=== PATIENT | female | born 1955 | race Caucasian/White ===

== ENCOUNTER 2017-12-21 10:19 | Observation (INO) | payer OTHER ==
[~2017-12-21] VITALS: Ht 149.9 cm; Wt 68.5 kg
[~2017-12-21 10:19] MED LIST: ADVAIR 250-501 EACH INH; ATROVENT HFA12.9 GM INH; CARISOPRODOL350 MG PO; COUMADIN4 MG PO; FLOVENT DISKUS50 MCG INH; FOLIC ACID1 MG PO; HYDROMORPHONE HC4 MG PO; LISINOPRIL5 MG PO; LORCET 101 TAB; MORPHINE SULFAT15 MG PO; MYCOPHENOLATE250 MG PO; NORCO 10MG-325MG1 EA PO; PANTOPRAZOLE SO40 MG PO; PREDNISONE10 MG PO; PREMARIN0.45 MG PO; PROCHLORPERAZINE5 MG PO; PROMETHAZINE HC25 M1 PO; VENLAFAXINE HC150 MG PO; VITAMIN D50000 UNIT PO
[2017-12-21] MEDS ORDERED: TEMAZEPAM15 MG PO (11:18)
[2017-12-21] MEDS ORDERED: CARISOPRODOL350 MG PO (11:18)
[2017-12-21] MEDS ORDERED: POTASSIUM CHLO20 ME1 PO (11:18)
[2017-12-21] MEDS ORDERED: Eliquis PO (11:18)
[2017-12-21] MEDS ORDERED: MEDROXYPROGESTE10 MG PO (11:18)
[2017-12-21] MEDS ORDERED: ASPIR 8181 MG PO (11:18)
[2017-12-21] MEDS ORDERED: LABETALOL HCL200 MG PO (11:18)
[2017-12-21] MEDS ORDERED: DOCUSATE SODIU100 MG PO (11:18)
[2017-12-21] MEDS ORDERED: ATORVASTATIN CA20 MG PO (11:18)
[2017-12-21] MEDS ORDERED: FOLIC ACID1 MG PO (11:18)
[2017-12-21] MEDS ORDERED: FUROSEMIDE40 MG PO (11:18)
[2017-12-21] MEDS ORDERED: ABILIFY5 MG PO (11:18)
[2017-12-21] MEDS ORDERED: TRAZODONE HCL50 MG PO (11:18)
[2017-12-21] MEDS ORDERED: CORTISPORIN OIN15 GM TOP (11:24)
[2017-12-21] MEDS ORDERED: CLOTRIMAZOLE15 GM PO (11:24)
[2017-12-21] MEDS ORDERED: NYSTATIN100000 UNI PO (11:24)
[2017-12-21] MEDS ORDERED: ZOLPIDEM TARTRATE 5 MG TAB PO PRN ×2 (12:00→13:30)
[2017-12-21] MEDS ORDERED: ONDANSETRON HCL INJ 2 MG/ML VIAL IV PRN (12:00)
[2017-12-21] MEDS ORDERED: DIPHENHYDRAMINE HCL INJ 50 MG/ML VIAL IV PRN (12:00)
[2017-12-21] MEDS ORDERED: PROMETHAZINE 12.5MG/ NACL 0.9% 12.5 MG/50 ML BAG IV PRN (12:00)
[2017-12-21] MEDS ORDERED: DILTIAZEM HCL 5 MG/ML 5 ML VIAL IV ONE ×2 (12:15→12:30)
[2017-12-21] MEDS ORDERED: DILTIAZEM HCL VIAL 5 ML ONE (12:15)
[2017-12-21] MEDS ORDERED: SODIUM CHLORIDE 0.9% 1000ML 1,000 ML ONE (12:15)
[2017-12-21] MEDS ORDERED: SODIUM CHLORIDE 0.9% 1000ML 1,000 ML IV ONE ×2 (12:15→12:30)
[2017-12-21] MEDS ORDERED: FAMOTIDINE 20 MG/2 ML VIAL IV ONE (12:15)
[2017-12-21 12:21] LABS: BASOPHILS % 0.2 % (0.0-1.0); EOSINOPHILS # (AUTO) 0.1 (0.0-0.4); EOSINOPHILS % 1.3 % (0.0-6.0); HEMATOCRIT 28.2 % (34.2-44.1); HEMOGLOBIN 8.6 g/dL (12.0-16.0); LYMPHOCYTES # (AUTO) 0.6 (1.0-3.2); LYMPHOCYTES % 7.6 % (18.0-39.1); MEAN CORPUSCULAR HEMOGLOBIN 26.5 pg (28-32); MEAN CORPUSCULAR HGB CONC 30.5 g/dL (31-35); MEAN CORPUSCULAR VOLUME 86.8 fL (81-99); MONOCYTES # (AUTO) 0.2 (0.2-0.8); MONOCYTES % 2.7 % (4.4-11.3); NEUTROPHILS # (AUTO) 7.2 (2.1-6.9); PLATELET COUNT 327 x10e3/uL (140-360); RED BLOOD COUNT 3.25 x10e6/uL (3.6-5.1); RED CELL DISTRIBUTION WIDTH 22.8 % (11.7-14.4)
[2017-12-21] MEDS ORDERED: ZOLPIDEM TARTRATE 10 MG TAB PO PRN (12:30)
[2017-12-21 12:41] LABS: ALBUMIN 3.2 g/dL (3.5-5.0); ALBUMIN/GLOBULIN RATIO 0.8 (0.8-2.0); CALCIUM 10.2 mg/dL (8.4-10.2); CREATININE, SERUM 1.46 mg/dL (0.57-1.11)
[2017-12-21] MEDS: HYDROMORPHONE 2MG/ML INJ IV PRN ×2 (12:55→18:25)
[2017-12-21 12:57] LABS: CREATINE KINASE MB 1.1 ng/mL (0-5.0)
[2017-12-21] MEDS ORDERED: MAGNESIUM SULFATE 2GM/50ML 50 ML IV ONE (13:15)
[2017-12-21] MEDS ORDERED: ACETAMINOPHEN 325 MG TAB PO PRN (13:30)
[2017-12-21] MEDS ORDERED: ENALAPRILAT IV INJ 1.25 MG/ML VIAL IV PRN (13:30)
[2017-12-21] MEDS: LACTATED RINGER'S 1,000 ML IV SCH ×2 (13:36→23:10)
--- NOTE | 2017-12-21 14:54 | Diagnostic Imaging Report ---
PROCEDURE: A single AP view of the chest. COMPARISON: Patients [facility], , CHEST SINGLE (PORTABLE), 12/08/2012, 5:04. INDICATIONS: CHEST PAIN, CHF FINDINGS: Lines/tubes: None. Lungs: The lungs are well inflated and grossly clear. There is no evidence of pneumonia or pulmonary edema. Pleura: There is no pleural effusion or pneumothorax. Heart and mediastinum: Cardiac silhouette is unremarkable. Bones: No acute bony abnormality. IMPRESSION: 1. No acute cardiopulmonary disease. Akash Santana M.D. Dictated by: Akash Santana M.D. on 12/21/2017 at 14:17 Electronically approved by: Akash Santana M.D. on 12/21/2017 at 14:17
[2017-12-21 15:38] VITALS: BP 110/66
[2017-12-21 15:56] VITALS: BP 110/66
[2017-12-21] MEDS: FAMOTIDINE 20 MG/2 ML VIAL IV SCH (16:46)
[2017-12-21 20:00] VITALS: BP 130/68
[2017-12-21] MEDS ORDERED: BENZOCAINE 20% SPR 60 ML CAN MT PRN (21:00)
[2017-12-21] MEDS: VENLAFAXINE HCL 75 MG CAPCR PO SCH (22:00)
[2017-12-21] MEDS: PREDNISONE 10 MG TAB PO SCH (22:00)
[2017-12-21] MEDS: MORPHINE SULFATE 15MG TAB CR PO SCH (22:06)
[2017-12-21] MEDS: APIXABAN 5 MG TABLET PO SCH (22:06)
[2017-12-21] MEDS: CARISOPRODOL 350 MG TAB PO SCH (22:07)
[2017-12-21] MEDS: CHLORASEPTIC SPRAY 177 ML BTL MM SCH (22:15)
[2017-12-21] MEDS: METOPROLOL TARTRATE 25 MG TAB PO SCH (23:09)
[2017-12-22] VITALS (7 sets, daily range): BP systolic 115–164; BP diastolic 66–77
--- NOTE | 2017-12-22 00:33 | Consultation ---
DATE OF CONSULTATION: December 21, 2017 CARDIOLOGY CONSULTATION NOTE REASON FOR CONSULTATION: Atrial flutter with RVR. CHIEF COMPLAINT: Mouth sores and pain while eating. HPI: Patient is a 61-year-old female who is well known to our practice. She has history of severe rheumatoid arthritis and has been on chronic immunosuppressants and high doses of narcotics for pain control including methadone. For past several months, she has developed significant what appears to be fungal infection in her mouth that has been gradually worsening to the point where it is very difficult for her to eat. She remains on high doses of steroids which makes healing this infection difficult despite her seeing multiple physicians and undergoing multiple courses of antifungals. Although she initially presented to the [facility] for evaluation of ulcerations in her mouth and lip, while she was in the ER, she briefly went into atrial flutter with RVR, converted back to sinus rhythm on her own without any intervention. She has no prior history of known atrial fib or atrial flutter, and this is why we are consulted. REVIEW OF SYSTEMS: Positive for diffuse joint pain, severe pain in her mouth, dysphagia, odynophagia, occasional abdominal pain, headaches, weight gain, and lower extremity swelling. Otherwise, ten-point review of system is negative other than what is mentioned. PAST MEDICAL HISTORY: 1. Rheumatoid arthritis. 2. Diastolic heart failure. 3. Fungal infection of the mouth. FAMILY HISTORY: Hypertension, heart problems, and breast cancer in her mom; and history of cancer in her dad. SOCIAL HISTORY: Patient denies any smoking, drinking, or illegal drug use. PHYSICAL EXAMINATION: VITAL SIGNS: Temperature 97.9, heart rate 86, respiratory rate 20, blood pressure 130/68, satting 95% on room air. GENERAL: Thin elderly white female. HEENT: Eyes: Conjunctivae clear. Ears, nose, mouth, and throat: Patient has redness and white plaquing diffusely under her tongue as well as under her lower lip consistent with thrush. She also has thrush in the mucosa in her pharynx. There is no obvious bleeding or pallor noted. NECK: No jugular venous distention noted. MUSCULOSKELETAL: Mild diffuse muscle weakness with normal tone. No atrophy or abnormal movements. EXTREMITIES: No clubbing or cyanosis, however, there are significant joint deformities consistent with rheumatoid arthritis. SKIN: No venostasis changes or ulcers. CARDIOVASCULAR: PMI nondisplaced, regular. S1 and S2. No murmur, rubs, or gallops. Normal carotid pulses. Palpable femoral pulses. Palpable pedal pulses. Trace edema at the ankles. Some varicosities in bilateral lower extremities noted. RESPIRATORY: No respiratory distress. Lungs are clear to auscultation bilaterally. ABDOMEN: Soft, nontender. No masses or hepatosplenomegaly. NEURO AND PSYCH: Patient is alert and oriented to person, place, and time. Normal affect. MEDICATIONS: 1. Apixaban 5 mg b.i.d. 2. Enalaprilat 0.625 q.6h. p.r.n. for blood pressure greater than 160. LABS: Lab data reviewed, significant for hemoglobin of 8.6 and magnesium of 1.0. IMAGING: Reviewed. Chest x-ray without any significant cardiopulmonary abnormality. ECG, ECG tracing from the ER reviewed. It is in fact atrial flutter with RVR, not atrial fibrillation, which converted to normal sinus rhythm with IV diltiazem. Echo, prior echo in the office showed normal EF without significant valvular abnormalities. ASSESSMENT: 1. Atrial flutter. 2. Chronic diastolic heart failure. PLAN: She is currently back in sinus rhythm. Given her hemoglobin of 8.6 and propensity to bleed very easily, will monitor closely to see how she tolerates apixaban. Her [id number] score is 3. Would also recommend repleting magnesium to prevent propensity for further arrhythmias. Infectious disease consulted for evaluation of her mouth lesions and possible fungal infection. Will continue to follow closely. Thank you for this consult. Job#: [id number]
[2017-12-22] MEDS: HYDROMORPHONE 2MG/ML INJ IV PRN ×3 (01:11→12:26)
[2017-12-22] MEDS: HYDROCODONE/APAP 10MG-325MG TAB PO PRN ×2 (04:38→13:15)
[2017-12-22] MEDS: CHLORASEPTIC SPRAY 177 ML BTL MM SCH ×3 (05:01→20:22)
[2017-12-22] MEDS: METOPROLOL TARTRATE 25 MG TAB PO SCH ×3 (05:02→21:19)
[2017-12-22 06:07] LABS: CHOL/HDL RATIO 2.4 (3.0-3.6)
[2017-12-22] MEDS ORDERED: AMIODARONE HCL200 MG PO (06:20)
[2017-12-22] MEDS ORDERED: LOPRESSOR25 MG PO (06:20)
[2017-12-22 06:25] LABS: HEMATOCRIT 24.4 % (34.2-44.1)
[2017-12-22 06:30] LABS: HEMOGLOBIN 7.5 g/dL (12.0-16.0)
[2017-12-22] MEDS ORDERED: PANTOPRAZOLE SOD 40 MG TABEC PO SCH (07:30)
[2017-12-22] MEDS: LACTATED RINGER'S 1,000 ML IV SCH (07:39)
[2017-12-22 07:45] LABS: CALCIUM 9.6 mg/dL (8.4-10.2); CREATININE, SERUM 1.03 mg/dL (0.57-1.11)
--- NOTE | 2017-12-22 08:11 | Discharge Summary ---
PRINCIPAL DIAGNOSES 1. Atrial fibrillation with rapid ventricular response. 2. Congestive heart failure, type unknown. 3. Oral ulcers. 4. Acute kidney injury. 5. Hypomagnesemia. 6. Obesity. Body mass index 30.5. 7. Prediabetes with glycosylated hemoglobin 6.1. 8. Normocytic anemia. SECONDARY DIAGNOSES 1. Lupus. 2. Congestive heart failure. 3. Chronic pain syndrome. CHIEF COMPLAINT: Oral lesions. HISTORY OF PRESENT ILLNESS: This is a 61-year-old woman with oral lesions, found to have atrial fibrillation with rapid ventricular response. Please refer to the H and P for further details. HOSPITAL COURSE: The patient was treated for atrial fib with rapid ventricular response with AV-blocking agent and started on amiodarone. The patient is on a beta eliu. She is also on anticoagulant, which she has been on from home. She had severe hypomagnesemia. This was replaced and is being rechecked now. She also had renal dysfunction. This is also being rechecked. Urinalysis is also being checked. I will follow up these levels later today. The patient will be discharged later today with followup. DISCHARGE MEDICATIONS: Per electronic medical record. FOLLOWUP 1. With primary care doctor in 1 week. 2. [facility] in 1 to 2 weeks. CONDITION ON DISCHARGE: Stable and improving. DISCHARGE LOCATION: Home. HUAN MITCHELL MD Job#: [id number]
[2017-12-22] MEDS: AMIODARONE HCL 200 MG TAB PO SCH (08:46)
[2017-12-22] MEDS: FAMOTIDINE 20 MG/2 ML VIAL IV SCH ×2 (08:46→17:31)
[2017-12-22] MEDS: APIXABAN 5 MG TABLET PO SCH (08:46)
[2017-12-22] MEDS: VENLAFAXINE HCL 75 MG CAPCR PO SCH (08:46)
[2017-12-22] MEDS: FOLIC ACID 1 MG TAB PO SCH (08:46)
[2017-12-22] MEDS: DOCUSATE SODIUM 100 MG CAP PO SCH ×2 (08:46→17:31)
[2017-12-22] MEDS: MORPHINE SULFATE 15MG TAB CR PO SCH ×2 (08:56→20:21)
[2017-12-22] MEDS: PANTOPRAZOLE SOD 40 MG TABEC PO SCH ×3 (08:57→20:21)
[2017-12-22] MEDS: PREDNISONE 10 MG TAB PO SCH (08:57)
[2017-12-22] MEDS: CARISOPRODOL 350 MG TAB PO SCH ×4 (08:59→20:22)
[2017-12-22] MEDS ORDERED: MORPHINE SULFATE 15 MG PO SCH (09:00)
[2017-12-22] MEDS ORDERED: NON-FORMULARY MEDICATION ([Eliquis] 5 MG) PO SCH (09:00)
[2017-12-22] MEDS ORDERED: NON-FORMULARY MEDICATION (Venlafaxine Hcl (Venlafaxine Hcl Er) 150 MG) PO SCH (09:00)
[2017-12-22] MEDS ORDERED: MAALOX/LIDOCAINE/BENADRYL/NYST 30 ML BTL PO PRN ×2 (12:30)
--- NOTE | 2017-12-22 13:30 | Consultation ---
DATE OF CONSULTATION: December 22, 2017 INFECTIOUS DISEASE CONSULTATION ATTENDING PHYSICIAN: Dr. Carlos Josue. REASON FOR CONSULTATION: Oral ulcers. Thank you, Dr. Josue, for asking me to see this patient. HISTORY: The patient is a 61-year-old woman referred for oral ulcers. She was admitted through the emergency department on December 21, 2017, for atrial fibrillation with rapid ventricular rate, which has been evaluated by the cardiology service. The patient has had oral ulcers for about 2 months. The lesions began as blisters which grew bigger and ruptured, to leave painful raw areas. The lesions have recently gotten worse and are making it difficult to eat and do oral care. The patient has been treated with gum paste without improvement. Also she took antifungal medication by swish and swallow without help. Her transportation solutions manager increased the prednisone dose to 60 mg a day to see if the lesions were due to a flareup of lupus, but it did not help. The patient does not recall new medication around the onset of the lesions. She denies fever and chills. Also she denies similar vaginal and anal lesions. PAST MEDICAL HISTORY: Hypertension, hyperlipidemia, atrial fibrillation, congestive heart failure, lupus and chronic pain syndrome. PAST SURGICAL HISTORY: Tonsillectomy and a D\T\C. ALLERGIES: NO KNOWN DRUG ALLERGIES. MEDICATIONS: See MAR. FAMILY HISTORY: Noncontributory. SOCIAL HISTORY: She denies alcohol and tobacco use. REVIEW OF SYSTEMS: As per history of present illness. PHYSICAL EXAMINATION: GENERAL: No acute distress and does not appear toxic. VITALS: T-max 99.1, pulse 80, respiratory rate 21, blood pressure 115/71, weight 151 pounds. HEENT: Normocephalic. There is no icterus or injection of conjunctivae. There is no ear or nasal discharge. Moist oral mucosa with extensive oral lesions on the labia mucosa, buccal mucosa, and on the palate. There is loss of valley on the tongue but no ulcers noted at this time. NECK: Supple. No lymphadenopathy or meningismus. LUNGS: Good air entry bilaterally. HEART: Normal S1 and S2. ABDOMEN: Soft and nontender. EXTREMITIES: There is no edema, clubbing or cyanosis. SKIN: There is no acute erythema. No rash. MEDICAL SUPPLY TECHNICIAN: Awake, alert and oriented to person, place and time. Nonfocal. LABORATORY AND DIAGNOSTICS: WBC 8290, neutrophil 87, lymph 7.6, mono 2.7, eosinophil 1.3, basophil 0.2, BUN 20, creatinine 1.03. IMPRESSION: 1. Oral ulcers may be secondary to infectious or noninfectious causes. 2. Immune suppression due to high-dose prednisone. 3. Lupus. 4. Atrial fibrillation, now with rate. 5. Chronic pain syndrome. PLAN: 1. Recommend oral maxillofacial consult for biopsy for tissue and microbiological diagnoses. 2. Check HIV screen and RPR if the patient agrees. Job#: [id number] EV
[2017-12-22] MEDS ORDERED: SODIUM CHLORIDE 0.9% 250ML 250 ML IV ONE (15:15)
[2017-12-22] MEDS ORDERED: FUROSEMIDE INJ 10 MG/ML 2 ML VIAL IV PRN (15:15)
[2017-12-22] MEDS ORDERED: CITRATE OF MAGNESIA 300ML BOTTLE PO ONE (15:15)
--- NOTE | 2017-12-22 15:23 | History and Physical ---
PRIMARY CARE PHYSICIAN: Dr. Vega CHIEF COMPLAINT: Oral ulcers. HISTORY OF PRESENT ILLNESS: A 61-year-old woman, who has been having oral ulcers for months, now went to ENT doctor, given gum paste and other medication, also received some mouthwash. Patient has taken doxycycline in the past with good results. Now, went to her primary care doctor, sent to the hospital for further evaluation and management. She was found to be in rapid ventricular response. She does have a history of atrial fibrillation. She was admitted for further evaluation and management. PAST MEDICAL HISTORY: Atrial fibrillation with rapid ventricular response, Coumadin toxicity, acute kidney injury, hyponatremia, alcohol abuse, lupus, Sjogren, rheumatoid arthritis, chronic pain syndrome, DVT, aspiration pneumonia, COPD, alcohol withdrawal, hyponatremia, acute kidney injury. PAST SURGICAL HISTORY: Pneumothorax in 1989 treated with chest tube, pericarditis. ALLERGIES: PER ELECTRONIC MEDICAL RECORD. FAMILY/SOCIAL HISTORY: Patient is . She has 6 children. Occasional alcohol. Quit cigarettes. MEDICATIONS: Per electronic medical record. REVIEW OF SYSTEMS: Denies any dizziness, chest pain, shortness of breath, fever, chills, sweats, nausea, vomiting, diarrhea. PHYSICAL EXAMINATION: VITAL SIGNS: Reviewed. GENERAL APPEARANCE: Tired-appearing woman resting in bed. HEENT: Anicteric. She has oral ulcers throughout the mouth and the lower lip, in the mouth and the tongue, and the buccal mucosa. CARDIOVASCULAR: Normal S1, S2, without murmurs. ABDOMEN: Soft, nontender, nondistended. EXTREMITIES: No edema, calf tenderness. NEUROLOGIC: Alert and oriented x3. She moves all extremities. SKIN: Dry. PSYCHIATRIC: Flat affect. LABS: Reviewed. MEDICATIONS: Reviewed. ASSESSMENT: This is a 61-year-old woman. 1. Atrial fibrillation with rapid ventricular response. 2. Congestive heart failure, type 1. 3. Lupus. 4. Chronic pain syndrome. 5. Oral ulcers. 6. Normocytic anemia. 7. Acute kidney injury. 8. Hypomagnesemia. 9. Obesity. PLAN 1. Rate control with AV blocking agents. 2. Oral wash including steroid oral wash. 3. Obtain urinalysis to rule out infection as the cause of the rapid ventricular response. 4. Follow up hemoglobin count. Hemoglobin was 8.6. 5. Replace magnesium and recheck tonight. 6. Rehydrate and reassess renal function. 7. Obtain hemoglobin A1c and lipid panel. 8. Restart pain medications per patient's request. 9. Continue apixaban b.i.d. and AV blocking agents. Job#: [id number] CQ
[2017-12-22] MEDS: SUCRALFATE 1 GM/10 ML SUSP NG SCH ×2 (16:18→20:19)
--- NOTE | 2017-12-22 16:34 | Consultation ---
DATE OF CONSULTATION: GASTROENTEROLOGY CONSULTATION HISTORY OF PRESENT ILLNESS: Ms. Spann is an old patient of mine who presented to the hospital with difficulty eating because of a fungal infection in her mouth that has progressed to the point which made her extremely uncomfortable to eat, and I was asked to see her for evaluation. She is known to have history of lupus for a long time. She is on chronic immune suppression treatment, and she also has congestive heart failure. GI-ramos, besides the trouble swallowing, she does have regularly heartburn, acid reflux that is controlled well with medication. No abdominal pain. She is constipated. She has 1 bowel movement per week, and 2 weeks ago for the first time she saw dark-colored blood. She had colonoscopy over 10 years ago. REVIEW OF SYSTEMS: Consistent with trouble swallowing and constipation and odynophagia. SOCIALLY: She is an ex-smoker. She does not drink. She quit smoking 6 years ago. ALLERGIES: NOT KNOWN TO HAVE ALLERGY TO ANY MEDICATION. CURRENT MEDICATIONS: She is on Protonix, Lopressor, Soma, MS Contin, prednisone, folic acid, amiodarone, Zofran, Vasotec, Restoril, Desyrel, Lipitor, Pepcid, Chloraseptic, Eliquis and Effexor. PHYSICAL EXAMINATION GENERAL: She is awake, alert, oriented. VITAL SIGNS: Temperature 97, pulse 91, respiratory rate 18, blood pressure 137/66. HEENT: Pale sclerae. NECK: Supple. No node. LUNGS: Expiratory wheezing bilaterally. HEART: Regular-regular, occasional irregular beat. ABDOMEN: Obese, soft, not tender abdomen. No acute signs. No organomegaly or masses. EXTREMITIES: No edema. CENTRAL NERVOUS SYSTEM: Motor function grossly intact. LAB: Hemoglobin down to 7 from 8, hematocrit down to 24 from 28, platelet 327. BUN 20, creatinine 1.03, sodium 139, potassium is 5. Liver function normal. Magnesium was 1 but according to the nursing staff was replaced. IMPRESSION: Constipation, most likely induced by her narcotic. Will give her magnesium citrate now and will try her on MiraLAX. If MiraLAX does not help, we will put her on Movantik. Her anemia, will order iron saturation, ferritin, B12, folate, RBCs and also will transfuse her with 2 units of RBCs. We are going to keep her on Protonix and add Carafate. Her trouble swallowing, she is on swish and swallow combination of viscous lidocaine, Maalox, nystatin and Benadryl, and it according to the patient is helping her. I advised her to use a straw and to take at least 4 cans of Ensure a day. If she is able, that is fine; if not, then will put a Dobbhoff tube. We cannot do the endoscopy now unless we stop her blood thinner. Will follow with you. Job#: [id number] EV
[2017-12-22 16:38] LABS: MAGNESIUM 1.8 MG/DL (1.3-2.1)
[2017-12-22 16:59] LABS: FERRITIN 97.37 ng/mL (4.63-204.00)
[2017-12-22] MEDS: POLYETHYLENE GLYCOL 3350 17 GM PACK PO SCH (17:31)
--- NOTE | 2017-12-22 19:45 | Progress Note ---
DATE: December 22, 2017 CARDIOLOGY PROGRESS NOTE SUBJECTIVE: No major events overnight. Pain in her mouth is a little improved the Xylocaine spray. However, she states that it cage when applied. She has also been seen by gastroenterology, as well as infectious disease. They are working on identifying the cause of her oral mucosal lesions. OBJECTIVE VITAL SIGNS: 96.8, pulse 85, respiratory rate 20, blood pressure 136/67, satting 96% on room air. GENERAL: Obese elderly white female. CARDIOVASCULAR: PMI nondisplaced. Regular S1 and S2. No murmurs, rubs or gallops. Normal carotid pulses. Palpable femoral pulses. Palpable pedal pulses. Trace edema at the ankles. Varicosities in bilateral lower extremities. RESPIRATORY: No respiratory distress. Lungs are clear to auscultation bilaterally. ABDOMEN: Soft and nontender. No masses or hepatosplenomegaly. NEURO/PSYCH: Alert and oriented to person, place and time. Normal affect. CARDIOVASCULAR MEDICATIONS 1. Metoprolol tartrate 25 mg q.8 h. p.o. 2. Amiodarone 200 mg daily. LABORATORY DATA: Reviewed. Hemoglobin 7.5, pending blood transfusion. IMAGING: No new imaging data to review. Telemetry monitoring reports normal sinus rhythm. No arrhythmias overnight. ASSESSMENT AND PLAN 1. Paroxysmal atrial flutter. 2. Carotid diastolic heart failure. PLAN: The patient remains in sinus rhythm. No evidence of any arrhythmias. Getting blood transfusion today given transfusion dependent anemia. Pending EGD and biopsy. Plan from GI, will hold off on apixaban at this time. Continue metoprolol and amiodarone to maintain sinus rhythm. Will continue to follow. Thank you for this consult. Job#: [id number] JAZZY
[2017-12-22] MEDS ORDERED: TRAZODONE HCL 50 MG TAB PO SCH (21:00)
[2017-12-22] MEDS ORDERED: ATORVASTATIN 20 MG TAB PO SCH (21:00)
[2017-12-22] MEDS ORDERED: TEMAZEPAM 15 MG CAP PO SCH (21:00)
[2017-12-23] VITALS (7 sets, daily range): BP systolic 120–164; BP diastolic 60–92
[2017-12-23] MEDS ORDERED: DIGOXIN INJ 0.25 MG/ML 2 ML AMP IV STA (03:06)
[2017-12-23] MEDS: HYDROCODONE/APAP 10MG-325MG TAB PO PRN (03:52)
[2017-12-23] MEDS: CHLORASEPTIC SPRAY 177 ML BTL MM SCH (04:44)
[2017-12-23] MEDS: METOPROLOL TARTRATE 25 MG TAB PO SCH (04:45)
[2017-12-23 05:24] LABS: HEMATOCRIT 30.6 % (34.2-44.1); HEMOGLOBIN 9.7 g/dL (12.0-16.0)
[2017-12-23] MEDS: SUCRALFATE 1 GM/10 ML SUSP NG SCH ×2 (08:07→12:17)
[2017-12-23] MEDS: HYDROMORPHONE 2MG/ML INJ IV PRN (08:07)
[2017-12-23] MEDS: FOLIC ACID 1 MG TAB PO SCH (09:50)
[2017-12-23] MEDS: POLYETHYLENE GLYCOL 3350 17 GM PACK PO SCH (09:50)
[2017-12-23] MEDS: DOCUSATE SODIUM 100 MG CAP PO SCH (09:50)
[2017-12-23] MEDS: PANTOPRAZOLE SOD 40 MG TABEC PO SCH (09:50)
[2017-12-23] MEDS: MORPHINE SULFATE 15MG TAB CR PO SCH (09:50)
[2017-12-23] MEDS: FAMOTIDINE 20 MG/2 ML VIAL IV SCH (09:50)
[2017-12-23] MEDS: AMIODARONE HCL 200 MG TAB PO SCH (09:50)
[2017-12-23] MEDS: VENLAFAXINE HCL 75 MG CAPCR PO SCH (09:50)
[2017-12-23] MEDS: PREDNISONE 10 MG TAB PO SCH (09:50)
[2017-12-23] MEDS: CARISOPRODOL 350 MG TAB PO SCH (09:51)
--- NOTE | 2017-12-23 14:24 | Progress Note ---
DATE: December 23, 2017 CARDIOLOGY PROGRESS NOTE SUBJECTIVE: Patient went into A-flutter with RVR overnight, was asymptomatic. Was given IV bolus of digoxin and converted back to sinus rhythm on her own. Today, she is resting in bed without any distress. REVIEW OF SYSTEMS: Continues to have pain in her mouth upon swallowing as well as joint pains. Otherwise, the 10-point review of systems is negative. OBJECTIVE VITAL SIGNS: Temperature 96.8, pulse 76, respiratory rate 16, blood pressure 120/60, satting 96% on room air. GENERAL: Well-developed white female. CARDIOVASCULAR: PMI could not be palpated due to body habitus. Normal S1 and S2. Regular rhythm. No murmurs, rubs or gallops are heard. Palpable carotid pulses. Palpable pedal pulses. RESPIRATORY: No respiratory distress. Lungs are clear to auscultation bilaterally. ABDOMEN: Soft and nontender. Nondistended. Normal bowel sounds. NEURO/PSYCH: Alert and oriented to person, place and time. Normal affect. LAB DATA: Reviewed. No new significant findings today. Hemoglobin increased from 7.5 to 9.7 after transfusion yesterday. IMAGING: No new imaging data reviewed today. TELEMETRY: Reviewed. Overnight had long episode of atrial flutter with RVR, converted back to sinus this morning. ASSESSMENT AND PLAN 1. Paroxysmal atrial flutter. 2. Chronic diastolic heart failure. PLAN: The patient is still having paroxysmal atrial flutter. Patient remains asymptomatic without any hypotension when she has these episodes. The plan is for the patient to be discharged today and follow up with GI for outpatient EGD and biopsy for her mucosal plaquing and ulceration. From a cardiology point of view, continue holding her apixaban until GI workup is completed. For rate and rhythm control, will prescribe her amiodarone 200 mg oral b.i.d. and increase her metoprolol tartrate to 50 mg b.i.d. Ideally, we would like to see her in the office prior to her EGD to make sure she remains in sinus rhythm. Thank you for this consult. The patient is okay to be discharged from a cardiovascular standpoint. Job#: [id number]
[2017-12-23] MEDS ORDERED: FERROUS SULFATE 325 MG TAB PO NR (15:30)
--- NOTE | 2017-12-23 16:09 | Discharge Summary ---
PRINCIPAL DIAGNOSES 1. Atrial fibrillation with rapid ventricular response. 2. Congestive heart failure. 3. Oral ulcers/aphthous ulcers. 4. Normocytic anemia. 5. Chronic pain syndrome. 6. Acute kidney injury. 7. Hypomagnesemia. 8. Anemia requiring 2 units of packed red blood cells transfusion. 9. Obesity. SECONDARY DIAGNOSES 1. Obesity. 2. Atrial fibrillation. CHIEF COMPLAINT: Oral lesions. HISTORY OF PRESENT ILLNESS: This is a 61-year-old woman with oral lesions. Please refer to the H and P for further details. HOSPITAL COURSE: The patient was found to have oral ulcers. Also found to have atrial fibrillation with rapid ventricular response treated with medication regimen. Amiodarone was added. Cardiology evaluated the patient also. Dr. Park of GI evaluated the patient for her ulcers. Blood transfusion given. Viscous lidocaine and Chloraseptic and other medications were given for the oral ulcers. She will need to follow up with Dr. Park as outpatient for continued management. DISCHARGE MEDICATIONS: Per electronic medical record. FOLLOWUP 1. With primary care doctor in [address] Park in 1 week. 3. Cardiology in 1 to 2 weeks. CONDITION ON DISCHARGE: Stable and improving. DISCHARGE LOCATION: Home. HUAN MITCHELL MD Job#: [id number]
[2017-12-23] MEDS ORDERED: MIRALAX17 GM PO (17:02)
--- NOTE | 2017-12-23 23:56 | Progress Note ---
DATE: December 23, 2017 Ms. Spann is doing well, stable overall from GI standpoint. She is able to swallow using straw better than before. She managed to get down Ensure in addition to some other soft diet such as and mashed potato. She feels herself somewhat better from yesterday. As far as her constipation, she only took 1 dose of MiraLax and bottle of magnesium citrate, but she still has not had a bowel movement. Most likely her constipation is due to narcotic. The primary care will be discharging her home today and he advised her to stop her blood thinner. PLAN: To continue using her oral solution for comfort. Continue using straw to maintain adequate nutrition using her Ensure. In 4 days after stopping her blood thinner, will plan for upper endoscopy, and I asked her to continue using the MiraLax more frequently. If in the next 2 days, 3 days still no benefit, will change it. Hopefully, we can get her Movantik. Will follow as an outpatient. Job#: [id number]
[2017-12-24] MEDS ORDERED: ASCORBIC ACID 500 MG TAB PO SCH (09:00)
== END 2017-12-23 17:29 | disposition home or self-care (01) ==
LOC: ER 10:19 → ERHOLD 14:07 → IMCU 15:02
PROVIDERS: ADMIT Internal Medicine; ATTEND Internal Medicine
DX: I48.91 Unspecified atrial fibrillation (principal); B00.2 Herpesviral gingivostomatitis and pharyngotonsillitis; E86.0 Dehydration; M32.9 Systemic lupus erythematosus, unspecified; D64.9 Anemia, unspecified; N17.9 Acute kidney failure, unspecified; E83.42 Hypomagnesemia; E66.9 Obesity, unspecified; Z86.718 Personal history of other venous thrombosis and embolism; Z79.01 Long term (current) use of anticoagulants; I50.32 Chronic diastolic (congestive) heart failure; I48.92 Unspecified atrial flutter; G89.4 Chronic pain syndrome; I11.0 Hypertensive heart disease with heart failure; Z79.899 Other long term (current) drug therapy; Z87.891 Personal history of nicotine dependence; K59.03 Drug induced constipation; T40.605A Adverse effect of unspecified narcotics, initial encounter; R73.03 Prediabetes
CPT/HCPCS: 36415 ×3; 36430 ×2; 71045; 80048; 80053; 80061; 82550 ×2; 82553 ×2; 82607; 82728; 82747; 83036; 83540; 83735 ×3; 83880; 84466; 84484 ×2; 85014 ×2; 85018 ×2; 85025; 86850; 86900; 86920; 93005 ×3; 99284; G0378 ×3; J1160; J1170 ×3; J7030; J7050; J7120 ×2; P9016; S0164 ×2

== ENCOUNTER 2018-03-14 11:48 | Emergency (ER) | payer OTHER ==
[~2018-03-14] VITALS: Ht 149.9 cm; Wt 68.0 kg
[~2018-03-14 11:48] MED LIST changes: +ABILIFY5 MG PO; +AMIODARONE HCL200 MG PO; +ASPIR 8181 MG PO; +ATORVASTATIN CA20 MG PO; +CLOTRIMAZOLE15 GM PO; +CORTISPORIN OIN15 GM TOP; +DOCUSATE SODIU100 MG PO; +Eliquis PO; +FUROSEMIDE40 MG PO; +LABETALOL HCL200 MG PO; +LOPRESSOR25 MG PO; +MEDROXYPROGESTE10 MG PO; +MIRALAX17 GM PO; +NYSTATIN100000 UNI PO; +POTASSIUM CHLO20 ME1 PO; +TEMAZEPAM15 MG PO; +TRAZODONE HCL50 MG PO
[2018-03-14] MEDS ORDERED: ALBUTEROL SULF 0.083% NEB SOLN 3 ML NEB NEB STA (11:50)
--- NOTE | 2018-03-14 12:42 | Diagnostic Imaging Report ---
Examination: Single AP view of the chest. COMPARISON: None. INDICATION: Trouble breathing DISCUSSION: Examination is limited by portable technique and patient body habitus. The lungs are well-inflated. No focal airspace consolidation, pleural effusion, or pneumothorax. Hazy increased opacity over the mid and lower lung zones is related to superimposition of overlying soft tissues. There is mild prominence of the pulmonary interstitium. Atherosclerotic calcification of the thoracic aorta. Otherwise normal heart size for technique. No overt pulmonary edema. No acute osseous abnormality. IMPRESSION: Prominence of the pulmonary interstitium may reflect mild edema or viral lower respiratory infection. No consolidative pneumonia. Signed by: Dr. Misbah White M.D. on 03/14/2018 12:38 PM
[2018-03-14 13:22] LABS: BASOPHILS % 0.1 % (0.0-1.0); EOSINOPHILS % 0.1 % (0.0-6.0); HEMATOCRIT 27.1 % (34.2-44.1); HEMOGLOBIN 8.7 g/dL (12.0-16.0); LYMPHOCYTES # (AUTO) 1.2 (1.0-3.2); LYMPHOCYTES % 7.1 % (18.0-39.1); MEAN CORPUSCULAR HEMOGLOBIN 28.5 pg (28-32); MEAN CORPUSCULAR HGB CONC 32.1 g/dL (31-35); MEAN CORPUSCULAR VOLUME 88.9 fL (81-99); MONOCYTES # (AUTO) 0.9 (0.2-0.8); MONOCYTES % 5.5 % (4.4-11.3); NEUTROPHILS # (AUTO) 14.2 (2.1-6.9); NEUTROPHILS % 86.5 % (38.7-80.0); PLATELET COUNT 311 x10e3/uL (140-360); RED BLOOD COUNT 3.05 x10e6/uL (3.6-5.1); RED CELL DISTRIBUTION WIDTH 18.6 % (11.7-14.4)
[2018-03-14 13:32] LABS: INR 1.52; PROTHROMBIN TIME 19.6 seconds (11.9-14.5)
[2018-03-14 13:33] LABS: PARTIAL THROMBOPLASTIN TIME 42.8 seconds (23.8-35.5)
[2018-03-14 13:42] LABS: ALANINE AMINOTRANSFERASE 50 IU/L (0-55); ALBUMIN 3.2 g/dL (3.5-5.0); ALBUMIN/GLOBULIN RATIO 1.1 (0.8-2.0); ALKALINE PHOSPHATASE 61 IU/L (40-150); BLOOD UREA NITROGEN 37 mg/dL (7-26); BUN/CREATININE RATIO 24 (6-25); CALCIUM 8.4 mg/dL (8.4-10.2); CARBON DIOXIDE 25 mmol/L (22-29); CHLORIDE 96 mmol/L (98-107); CREATINE KINASE 52 IU/L (29-168); CREATININE, SERUM 1.57 mg/dL (0.57-1.11); EST GLOMERULAR FILTRATION RATE 33 ML/MIN (60-); GLUCOSE 120 mg/dL (74-118); SODIUM 126 mmol/L (136-145)
[2018-03-14] MEDS ORDERED: CEFTRIAXONE SOD 1 GM VIAL IV ONE (14:30)
--- OUTSIDE RECORDS SUMMARY | 2018-03-22 12:02 | XMS REPORT | Continuity of Care Document ---
Author Author [facility] Interface Address Unknown Phone Unavailable Problems Problem Status Onset Date Classification Date Reported Comments Source Pain in right foot 08/24/2017 11/23/2017 OP[facility] Sullivan M79.671 - PAIN IN RIGHT FOOT Active 08/16/2017 [facility] NEED Active 01/10/2013 [facility] COUMADIN TOXICITY Active 01/10/2013 [facility] 787.03 - VOMITING ALONE Active 06/05/2011 [facility] RTN Active 01/15/2011 [facility] Other osteoporosis with current pathological fracture, right ankle and foot, initial encounter for fracture 11/23/2017 [facility] Other specified soft tissue disorders 11/23/2017 [facility] CHF - Congestive heart failure Resolved Problem 11/23/2017 [facility], [facility] Lupus Resolved Problem 11/23/2017 [facility], OPID [facility] Pericarditis Resolved Problem 11/23/2017 [facility], OPID Sullivan RA - Rheumatoid arthritis Resolved Problem 11/23/2017 [facility], OPID Sullivan Sjogrens syndrome Resolved Problem 11/23/2017 [facility], OPID Sullivan CHF - Congestive heart failure Resolved Problem 01/15/2013 [facility] Lupus Resolved Problem 01/15/2013 [facility] Pericarditis Resolved Problem 01/15/2013 [facility] RA - Rheumatoid arthritis Resolved Problem 01/15/2013 [facility] Sjogrens syndrome Resolved Problem 01/15/2013 [facility] Low back pain Active Problem 02/25/2018 Castro Cartagena Other terminal clerk drug therapy Active Problem 02/25/2018 Castro Cartagena Osteoporosis Active Diagnosis 02/25/2018 Castro Cartagena Other forms of systemic lupus erythematosus Active Diagnosis 02/25/2018 Castro Cartagena Vitamin D deficiency Active Problem 02/25/2018 Castro Cartagena Mouth ulcers Active Problem 02/25/2018 Castro Cartagena TIA Active Problem 02/25/2018 Castro Cartagena Hypothyroidism Active Problem 10/01/2015 Castro Cartagena Asthma, unspecified, with exacerbation Active Problem 10/01/2015 Castro Cartagena Osteoporosis, postmenopausal Active Problem 10/01/2015 Castro Cartagena Long-term use of other medications - High Risk Active Problem 10/01/2015 Castro Cartagena Lupus Active Problem 10/01/2015 Castro Cartagena Bronchitis Active Diagnosis 02/25/2018 Castro Cartagena Pain in joint, ankle and foot Active Problem 10/01/2015 Castro Cartagena Cough Active Problem 10/01/2015 Castro Cartagena Unspecified drug dependence Active Diagnosis 10/14/2013 Castro Cartagena Opioid type dependence, unspecified Active Diagnosis 10/14/2013 Castro Cartagena Unspecified vitamin D deficiency Active Diagnosis 08/30/2014 Castro Mitzi POISONING-ANTICOAGULANTS Active [facility] COUGH, FEVER Active [facility] Medications Medication Details Route Status Patient Instructions Ordering Provider Order Date Source Zithromax Z-Mynor 2 tablets on the first day, then 1 tablet daily for 4 days Orally Active 250 MG Orally as directed Gerlaw 02/17/2018 Castro Cartagena PredniSONE 1 tablet Orally Active 10 MG Orally q am with food Cartagena 01/18/2018 Castro Cartagena Folic Acid 1 tablet Orally Active 1 MG Orally Once a day Cratagena 12/22/2017 Castro Cartagena Tylenol/codeine #4 #30 one tablet orally Active 300-60 mg orally three times a day prn for pain Tellez 12/21/2017 Castro Cartagena Diflucan 1 tablet Orally Active 150 MG Orally Once a day Cartagena 12/20/2017 Castro Cartagena Valtrex 1 tablet Orally Active 500 MG Orally bid Gerlaw 12/20/2017 Castro Cartagena Prolia as directed Subcutaneous Active 60 MG/ML Subcutaneous [id number] Cartagena 12/09/2017 Castro Cartagena Carisoprodol 1 tablet as needed Orally Active 350 MG Orally Four times a day Cartagena 12/06/2017 Castro Cartagena Carisoprodol 1 tablet as needed Orally Active 350 MG Orally Four times a day Cartagena 11/08/2017 Castro Cartagena Carisoprodol 1 tablet as needed Orally Active 350 MG Orally Four times a day Tellez 11/03/2017 Castro Cartagena Temazepam TAKE ONE CAPSULE BY MOUTH EVERY NIGHT AT BEDTIME Orally Active 30 MG Orally Once a day Cartagena 09/08/2017 Castro Cartagena Valacyclovir HCl 1 tablet Orally Active 500 MG Orally every 12 hrs Gerlaw 06/11/2017 Castro Cartagena Reclast 5mg Intravenous Active 5 MG/100ML Intravenous q 1 year Gerlaw 05/03/2017 Castro Cartagena Valacyclovir HCl 1 tablet Orally Active 500 MG Orally every 12 hrs Gerlaw 03/18/2017 Castro Cartagena Prolia as directed Subcutaneous Active 60 MG/ML Subcutaneous [id number] Gerlaw 03/17/2017 Castro Cartagena Prolia as directed Subcutaneous Active 60 MG/ML Subcutaneous [id number] Gerlaw 03/17/2017 Castro Cartagena Folic Acid 1 tablet Orally Active 1 MG Orally Once a day Gerlaw 03/08/2017 Castro Cartagena PredniSONE take 1-2 tablets by mouth daily Orally Active 10 Orally Once a day Tellez 12/18/2016 Castro Cartagena Ergocalciferol 1 capsule Orally Active 51939 UNIT Orally Qweek Gerlaw 09/08/2016 Castro Cartagena Ergocalciferol one capsule NA Active 47430 U QK Gerlaw 09/08/2016 Castro Cartagena Oralone 1 application at bedtime Mouth/Throat Active 0.1 % Mouth/Throat Once a day Tellez 08/20/2016 Castro Cartagena Folic Acid 1 tablet Orally Active 1 MG Orally QD Gerlaw 06/07/2016 Castro Cartagena Methotrexate 4 tablets Orally Active 2.5 MG Orally Qweek Gerlaw 06/07/2016 Castro Cartagena Carisoprodol 1 tablet as needed Orally Active 350 MG Orally Four times a day Tellez 04/22/2016 Castro Cartagena Carisoprodol 1 tablet as needed Orally Active 350 Orally Four times a day Tellez 04/22/2016 Castro Cartagena Carisoprodol 1 tablet as needed Orally Active 350 MG Orally Four times a day Gerlaw 04/06/2016 Castro Cartagena Methotrexate 4 tablets Orally Active 2.5 MG Orally once a week Tellez 02/24/2016 Castro Cartagena Folic Acid 1 tablet Orally Active 1 MG Orally Once a day Tellez 02/24/2016 Castro Cartagena Ergocalciferol 1 capsule Orally Active 93044 UNIT Orally Once a week Tellez 02/24/2016 Castro Cartagena Triamcinolone Acetonide 1 application to affected area Externally Active 0.1 % Externally Twice a day Tyler 05/27/2015 Castro Cartagena Soma 1 tablet as needed Orally Active 350 MG Orally Three times a day Gerlaw 05/20/2015 Castro Cartagena Soma 1 tablet as needed Orally Active 350 MG Orally Three times a day Gerlaw 03/25/2015 Castro Cartagena Cholecalciferol as directed Orally Active 39528 UNIT Orally once a week Stanley 02/25/2015 Castro Cartagena Bumetanide 1 tablet Orally Active 1 MG Orally Once a day Stanley 11/26/2014 Castro Cartagena Carisoprodol take 1 tablet as needed for muscle spasms Orally Active 350 MG Orally Three times a day Gerlaw 10/22/2014 Castro Cartagena Pantoprazole Sodium TAKE 1 TABLET BY MOUTH THREE TIMES DAILY BEFORE MEALS orally Active 40 Milligram orally take one tablet orally daily Gerlaw 02/16/2014 Castro Cartagena CellCept 2 tablets Orally Active 500 MG Orally Twice a day Gerlaw 09/05/2013 Castro Cartagena PredniSONE q am Orally Active 2.5 MG Orally q am with food Gerlaw 09/05/2013 Castro Cartagena Myfortic as directed Orally Active 180 MG Orally qa m Tyler 06/26/2013 Castro Cartagena Coumadin 4 mg, 2 tab, Route: PO, Drug form: TAB, ONCE, Start date: 01/13/13 17:00:00, Stop date: 01/13/13 17:00:00 PO No Longer Active [facility] 01/13/2013 [facility] carvedilol 6.25 mg oral tablet 6.25 mg, 1 tab, PO, Q12H, 60 tab, Substitution Allowed, TAB PO Active [facility] 01/13/2013 [facility] fluticasone CFC free 110 mcg/inh inhalation aerosol with adapter 1 puff, INHALER, Q12H, 1 can, Substitution Allowed, Maintenance, AERO/A INHALER Active [facility] 01/13/2013 [facility] predniSONE 20 mg oral tablet 40 mg, 2 tab, PO, Daily, 30 tab, Substitution Allowed, TAB PO Active [facility] 01/13/2013 [facility] ergocalciferol 50,000 IntlUnit, 1 cap, Route: PO, Drug form: CAP, QFri, Dosing Weight 47.727, kg, Start date: 01/13/13 9:00:00, Duration: 30 day, Stop date: 02/10/13 9:00:00 PO No Longer Active Silvia 01/13/2013 [facility] ibuprofen 400 mg, 1 tab, Route: PO, Drug form: TAB, Q6H, Dosing Weight 47.727, kg, PRN Pain Score 1-3, Start date: 01/12/13 19:17:00, Duration: 30 day, Stop date: 02/11/13 19:16:00 PO No Longer Active [facility] 01/13/2013 [facility] Coumadin 5 mg, 1 tab, Route: PO, Drug form: TAB, ONCE, Start date: 01/12/13 17:00:00, Stop date: 01/12/13 17:00:00 PO No Longer Active [facility] 01/12/2013 [facility] Spiriva 18 mcg inhalation capsule 1 ea, Route: INHALATION, Drug form: CAP, Daily, Dosing Weight 47.727, kg, Start date: 01/12/13 9:00:00, Duration: 30 day, Stop date: 02/10/13 9:00:00 INHALATION No Longer Active [facility] 01/12/2013 [facility] magnesium sulfate 2 gm, 50 mL, Route: IVPB, Drug form: INJ, ONCE, Dosing Weight 47.727, kg, Start date: 01/12/13 6:56:00, Duration: 1 doses or times, Stop date: 01/12/13 6:56:00, For Mg=1.8 - 2 mg/dLFor Mg=1.8 - 2 mg/dL IVPB No Longer Active [facility] 01/12/2013 [facility] Coreg 6.25 mg, 2 tab, Route: PO, Drug form: TAB, Q12H, Dosing Weight 47.727, kg, Start date: 01/11/13 21:00:00, Duration: 30 day, Stop date: 02/10/13 9:00:00 PO No Longer Active [facility] 01/12/2013 [facility] fluticasone 1 puff, Route: INHALER, Drug Form: AERO/A, Q12H, Start date: 01/11/13 21:00:00, Duration: 30 day, Stop date: 02/10/13 9:00:00 INHALER No Longer Active [facility] 01/12/2013 [facility] Coumadin 3 mg, 3 tab, Route: PO, Drug form: TAB, ONCE, Dosing Weight 47.727, kg, Start date: 01/11/13 18:58:00, Stop date: 01/11/13 18:58:00 PO No Longer Active Kevyn 01/11/2013 [facility] Flovent Diskus 100 microgram, Route: INHALATION, Dosing Weight 47.727, kg, BID, Start date: 01/11/13 17:00:00, Duration: 30 day, Stop date: 02/10/13 9:00:00 INHALATION No Longer Active [facility] 01/11/2013 [facility] Dilaudid 1 mg, 1 mL, Route: IV, Drug form: SOLN, ONCE, Dosing Weight 47.727, kg, Start date: 01/11/13 15:55:00, Stop date: 01/11/13 15:55:00 IV No Longer Active [facility] 01/11/2013 [facility] Tylenol 500 mg, 1 tab, Route: PO, Drug form: TAB, Q6H, Dosing Weight 47.727, kg, PRN Headache, Start date: 01/11/13 10:44:00, Duration: 30 day, Stop date: 02/10/13 10:43:00 PO No Longer Active [facility] 01/11/2013 [facility] nitroglycerin 0.4 mg sublingual tablet 0.4 mg, 1 tab, Route: SL, Drug form: TAB, Q5Min, PRN Chest Pain, Start date: 01/11/13 9:09:00, Duration: 30 day, Stop date: 02/10/13 9:08:00 SL No Longer Active [facility] 01/11/2013 [facility] atropine 0.5 mg, 5 mL, Route: IVP, Drug form: INJ, PRN, PRN Bradycardia, Start date: 01/11/13 9:09:00, Duration: 30 day, Stop date: 02/10/13 9:08:00 IVP No Longer Active [facility] 01/11/2013 [facility] thiamine 100 mg, 1 tab, Route: PO, Drug form: TAB, Daily, Dosing Weight 47.727, kg, Start date: 01/11/13 9:00:00, Duration: 30 day, Stop date: 02/09/13 9:00:00 PO No Longer Active [facility] 01/11/2013 [facility] multivitamin 1 tab, Route: PO, Drug Form: TAB, Dosing Weight 47.727, kg, Daily, Start date: 01/11/13 9:00:00, Duration: 30 day, Stop date: 02/09/13 9:00:00 PO No Longer Active Bawe01/11/2013 [facility] pantoprazole 40 mg, 1 tab, Route: PO, Drug form: ECTAB, Daily, Dosing Weight 47.727, kg, Start date: 01/11/13 9:00:00, Duration: 30 day, Stop date: 02/09/13 9:00:00 PO No Longer Active Baweja 01/11/2013 [facility] CellCept 500 mg, 2 cap, Route: PO, Drug form: CAP, BID, Dosing Weight 47.727, kg, Start date: 01/11/13 9:00:00, Stop date: 02/09/13 17:00:00 PO No Longer Active Ba01/11/2013 [facility] predniSONE 40 mg, 2 tab, Route: PO, Drug form: TAB, Daily, Dosing Weight 47.727, kg, Start date: 01/11/13 9:00:00, Stop date: 02/09/13 9:00:00 PO No Longer Active Ba01/11/2013 [facility] folic acid 1 mg, 1 tab, Route: PO, Drug form: TAB, Daily, Dosing Weight 47.727, kg, Start date: 01/11/13 9:00:00, Duration: 30 day, Stop date: 02/09/13 9:00:00 PO No Longer Active Bawe 01/11/2013 [facility] fluconazole 200 mg, 2 tab, Route: PO, Drug form: TAB, Daily, Dosing Weight 47.727, kg, Start date: 01/11/13 9:00:00, Duration: 30 day, Stop date: 02/09/13 9:00:00 PO No Longer Active Ba01/11/2013 [facility] Multaq 400 mg, 1 tab, Route: PO, Drug form: TAB, BID, Dosing Weight 47.727, kg, Start date: 01/11/13 9:00:00, Duration: 30 day, Stop date: 02/09/13 17:00:00 PO No Longer Active Bawe 01/11/2013 [facility] digoxin 125 mcg (0.125 mg) oral tablet 125 microgram, 1 tab, Route: PO, Drug form: TAB, Daily, Dosing Weight 47.727, kg, Start date: 01/11/13 9:00:00, Duration: 30 day, Stop date: 02/09/13 9:00:00 PO No Longer Active 01/11/2013 [facility] Premarin 0.45 mg, 0.5 tab, Route: PO, Drug form: TAB, Daily, Dosing Weight 47.727, kg, Start date: 01/11/13 9:00:00, Duration: 30 day, Stop date: 02/09/13 9:00:00 PO No Longer Active 01/11/2013 [facility] Soma 350 mg, Route: PO, Drug form: TAB, TID, Dosing Weight 47.727, kg, Start date: 01/11/13 9:00:00, Duration: 30 day, Stop date: 02/09/13 17:00:00 PO No Longer Active 01/11/2013 [facility] atenolol 25 mg oral tablet 25 mg, 1 tab, Route: PO, Drug form: TAB, Daily, Dosing Weight 47.727, kg, Start date: 01/11/13 9:00:00, Duration: 30 day, Stop date: 02/09/13 9:00:00 PO No Longer Active 01/11/2013 [facility] Premarin 0.45mg po daily*Pts own med* Premarin 0.45mg po daily*Pts own med*, 0.45 mg, Drug form: MISC, Route: PO, Daily, 01/11/13 9:00:00, Duration: 30 day, Stop date: 02/09/13 9:00:00 PO No Longer Active 01/11/2013 [facility] Effexor XR 150 mg, 1 cap, Route: PO, Drug form: ERCAP, Daily, Dosing Weight 47.727, kg, Start date: 01/11/13 9:00:00, Duration: 30 day, Stop date: 02/09/13 9:00:00 PO No Longer Active 01/11/2013 [facility] Robaxin 750 mg, 1 tab, Route: PO, Drug form: TAB, TID, Start date: 01/10/13 21:18:00, Duration: 30 day, Stop date: 02/09/13 17:00:00 PO No Longer Active [facility] 01/11/2013 [facility] Chantix 1 mg, 2 tab, Route: PO, Drug form: TAB, BID, Dosing Weight 47.727, kg, Start date: 01/10/13 21:00:00, Stop date: 02/09/13 17:00:00 PO No Longer Active [facility] 01/11/2013 [facility] trazodone 50 mg oral tablet 50 mg, 1 tab, Route: PO, Drug form: TAB, Bedtime, Dosing Weight 47.727, kg, Start date: 01/10/13 21:00:00, Duration: 30 day, Stop date: 02/08/13 21:00:00 PO No Longer Active [facility] 01/11/2013 [facility] simvastatin 20 mg, 1 tab, Route: PO, Drug form: TAB, Bedtime, Dosing Weight 47.727, kg, Start date: 01/10/13 21:00:00, Duration: 30 day, Stop date: 02/08/13 21:00:00 PO No Longer Active [facility] 01/11/2013 [facility] Atrovent HFA 1 puff, Route: INHALATION, Drug Form: AERO, Dosing Weight 47.727, kg, BID, Start date: 01/10/13 21:00:00, Duration: 30 day, Stop date: 02/09/13 9:00:00 INHALATION No Longer Active [facility] 01/11/2013 [facility] Mephyton 2.5 mg, 0.5 tab, Route: PO, Drug form: TAB, ONCE, Start date: 01/10/13 20:00:00, Stop date: 01/10/13 20:00:00 PO No Longer Active [facility] 01/11/2013 [facility] prochlorperazine 5 mg, 1 tab, Route: PO, Drug form: TAB, PRN, Dosing Weight 47.727, kg, PRN as needed for nausea/vomiting, Start date: 01/10/13 17:57:00, Duration: 30 day, Stop date: 02/09/13 17:56:00 PO No Longer Active padmaja 01/10/2013 [facility] hydromorphone 8 mg, 4 tab, Route: PO, Drug form: TAB, TID, Dosing Weight 47.727, kg, PRN Pain Score 4-6, Start date: 01/10/13 17:57:00, Duration: 30 day, Stop date: 02/09/13 17:56:00 PO No Longer Active Ernst[facility]jciech 01/10/2013 [facility] Colace 100 mg oral capsule 100 mg, 1 cap, Route: PO, Drug form: CAP, BID, Dosing Weight 47.727, kg, PRN as needed for constipation, Start date: 01/10/13 17:56:00, Duration: 30 day, Stop date: 02/09/13 17:55:00 PO No Longer Active Ernst[place]jciech 01/10/2013 [facility] [place] 10/325 oral tablet 1 tab, Route: PO, Drug Form: TAB, Dosing Weight 47.727, kg, QID, PRN Pain Score 4-6, Start date: 01/10/13 17:56:00, Duration: 30 day, Stop date: 02/09/13 17:55:00 PO No Longer Active Silvia 01/10/2013 [facility] fluconazole 200 mg oral tablet 200 mg, 1 tab, PO, Daily, 10 tab, Substitution Allowed PO No Longer Active 01/10/2013 [facility] Chantix 0.5 mg oral tablet 1 mg, 2 tab, PO, BID, 60 tab, Substitution Allowed, TAB PO Active 01/10/2013 [facility] Atrovent HFA 1 puff, BID, Substitution Allowed, Maintenance Active 01/10/2013 [facility] Colace 100 mg oral capsule 100 mg, 1 cap, PO, BID, PRN, 20 cap, Constipation, Substitution Allowed, CAP PO Active 01/10/2013 [facility] prochlorperazine 5 mg oral tablet 5 mg, 1 tab, PO, PRN, PRN, 30 tab, Other-See Comments, Substitution Allowed, TAB PO Active 01/10/2013 [facility] digoxin 125 mcg (0.125 mg) oral tablet 125 microgram, 1 tab, PO, Daily, 30 tab, Substitution Allowed, TAB PO No Longer Active 01/10/2013 [facility] Vitamin D 50,000 intl units oral capsule 100,000 IntlUnit, 2 cap, PO, QFri, 24 cap, Substitution Allowed, CAP PO Active 01/10/2013 [facility] atenolol 25 mg oral tablet 25 mg, 1 tab, PO, Daily, 30 tab, Substitution Allowed PO No Longer Active 01/10/2013 [facility] simvastatin 20 mg oral tablet 20 mg, 1 tab, PO, Bedtime, 30 tab, Substitution Allowed PO Active 01/10/2013 [facility] Soma 350 mg oral tablet 350 mg, 1 tab, PO, TID, 21 tab, Substitution Allowed, TAB PO Active 01/10/2013 [facility] hydromorphone 4 mg oral tablet 8 mg, 2 tab, PO, TID, PRN, Pain, Substitution Allowed, TAB PO Active 01/10/2013 [facility] folic acid 1 mg oral tablet 1 mg, 1 tab, PO, Daily, 30 tab, Substitution Allowed, TAB PO Active 01/10/2013 [facility] multivitamin 1 tab, Daily, Substitution Allowed, Maintenance Active 01/10/2013 [facility] thiamine 100 mg oral tablet 100 mg, 1 tab, PO, Daily, 7 tab, Substitution Allowed, TAB PO Active 01/10/2013 [facility] [place] 10/325 oral tablet 1 tab, PO, QID, PRN, 24 tab, for pain, Substitution Allowed, Maintenance PO Active 01/10/2013 [facility] Multaq 400 mg oral tablet 400 mg, 1 tab, PO, BID, 60 tab, Substitution Allowed, TAB PO Active 01/10/2013 [facility] trazodone 50 mg oral tablet 50 mg, 1 tab, PO, Bedtime, 90 tab, Substitution Allowed, TAB PO Active 01/10/2013 [facility] warfarin 2.5 mg oral tablet 2.5 mg, 1 tab, PO, Daily, 30 tab, Substitution Allowed, TAB PO No Longer Active 01/10/2013 [facility] Premarin 0.45 mg oral tablet 0.45 mg, 1 tab, PO, Daily, 30 tab, Substitution Allowed, TAB PO Active 01/10/2013 [facility] Effexor XR 150 mg oral capsule, extended release 150 mg, 1 cap, PO, Daily, 30 cap, Substitution Allowed PO Active 01/10/2013 [facility] predniSONE 10 mg oral tablet 10 mg, 1 tab, PO, Daily, 7 tab, Substitution Allowed, TAB PO No Longer Active 01/10/2013 [facility] pantoprazole 40 mg oral enteric coated tablet 40 mg, 1 tab, PO, Daily, 30 tab, Substitution Allowed, ECTAB PO Active 01/10/2013 [facility] CellCept 250 mg oral capsule 500 mg, 2 cap, PO, BID, 120 cap, Substitution Allowed, CAP PO Active 01/10/2013 [facility] Temazepam TAKE 1 CAPSULE BY MOUTH EVERY NIGHT AT BEDTIME NA Active 30 QHS Cartagena 06/07/2012 Castro Cartagena Labetalol HCl 1 tablet Orally Active 300 MG Orally Twice a day Cartagena 06/07/2012 Castro Cartagena Labetalol HCl 1 tablet Orally Active 300 MG Orally Twice a day Cartagena 06/07/2012 Castro Cartagena Temazepam two NA Active 30 MG QD Cartagena 06/07/2012 Castro Cartagena Abilify 1 tablet Orally Active 20 MG Orally Once a day Cartagena 06/07/2010 Castro Cartagena Carisoprodol take 1 tablet by mouth four times daily as needed Orally Active 350 Orally QID prn Gerlaw 06/07/2010 Castro Atwooder Carisoprodol one tablet NA Active 350 MG 4QD Gerlaw 06/07/2010 Castro Cartagena Abilify one tablet NA Active 20 MG QD Gerlaw 06/07/2010 Castro Cartagena Venlafaxine HCl one capsule NA Active 150 MG QD Gerlaw 04/28/2010 Castro Cartagena Venlafaxine HCl 1 cap NA Active 150.0 Milligram Qam Gerlaw 06/07/2009 Castro Cartagena Doc-Q-Lace 1 cap Orally Active 100 MG Orally prn Gerlaw 06/07/2009 Castro Atwooder Pantoprazole Sodium Take 1 tablet by mouth 3 times a day NA Active 40 MG Gerlaw 06/07/2007 Castro Cartagena Prochlorperazine Maleate 1 tab Orally Active 5 MG Orally TID prn Gerlaw 06/07/2007 Castro Cartagena Pantoprazole Sodium one tablet NA Active 40 MG QD Gerlaw 06/07/2007 Castro Atwooder Prochlorperazine Maleate one tablet NA Active 5 MG PRN Gerlaw 06/07/2007 Castro Cartagena Premarin 1 tab Orally Active 0.45 MG Orally QD Cartagena 06/07/2006 Castro Cartagena [place] 1 tab Orally Active 10-325 MG Orally Q4hrs prn Gerlaw 06/07/2005 Castro Cartagena PredniSONE take 1 to 2 tablets Orally Active 10 MG Orally q am with food Gerlaw 06/07/2003 Castro Cartagena PredniSONE take 1 tablet Orally Active 10 Orally QD Gerlaw 06/07/2003 Castro Mitzi Carisoprodol TAKE 1 TABLET BY MOUTH FOUR TIMES DAILY NA Active 350 Gerlaw Castro Cartagena Temazepam TAKE ONE CAPSULE BY MOUTH EVERY NIGHT AT BEDTIME NA Active 30 Cartagena Castro Cartagena Premarin 1 tab Orally Active 0.45 MG Orally QD Gerlaw Castro Cartagena Folic Acid 1 tablet Orally Active 1 MG Orally Once a day [facility] Prochlorperazine Maleate 1 tab Orally Active 5 MG Orally TID prn Gerlaw Castro Cartagena Methotrexate 4 tablets Orally Active 2.5 MG Orally once a week Gerlaw Castro Atwooder Pantoprazole Sodium Take 1 tablet by mouth 3 times a day NA Active 40 MG Gerlaw Castro Atwooder Bumetanide TAKE 1 TABLET BY MOUTH ONCE DAILY NA Active 1 Cartagena Castro Cartagena Doc-Q-Lace 1 cap Orally Active 100 MG Orally BID Gerlaw Castro Cartagena [place] 1 tab Orally Active 10-325 MG Orally Q4hrs prn [facility] Prolia 60MG SQ Q 6 MONTHS Subcutaneous Active 60 MG/ML Subcutaneous Gerlaw Castro Atwooder Triamterene-HCTZ 1 tab NA Active 37.5-25 MG QD Gerlaw Castro Cartagena Abilify 1 tablet Orally Active 20 MG Orally [facility] a [facility] Venlafaxine HCl 1 cap NA Active 150.0 Milligram Qam Gerlaw Castro Cartagena Carisoprodol 1 tablet as needed Orally Active 350 MG Orally Four times a day Gerlaw Castro Cartagena Folic Acid 1 TABLET ONCE A DAY ORALLY 30 DAYS NA Active 1 MG Gerlaw Castro Cartagena Ergocalciferol 1 capsule Orally Active 77425 UNIT Orally Once a week Gerlaw Castro Cartagena Abilify 1 tablet Orally Active 20 MG Orally Once a day Gerlaw Castro Cartagena Doc-Q-Lace 1 cap Orally Active 100 MG Orally BID Gerlaw Castro Cartagena Prempro 1 tablet Orally Active 0.625-2.5 MG Orally Once a day Gerlaw Castro Cartagena [place] 1 tab Orally Active 10-325 MG Orally Q4hrs prn Gerlaw Castro Cartagena Prochlorperazine Maleate 1 tab Orally Active 5 MG Orally TID prn Gerlaw Castro Cartagena Triamterene-HCTZ 1 tab NA Active 37.5-25 MG QD Mitzi Cartagena Prolia 60MG SQ Q 6 MONTHS Subcutaneous Active 60 MG/ML Subcutaneous Mitzi Cartagena Temazepam TAKE ONE CAPSULE BY MOUTH ONCE DAILY AT BEDTIME orally Active 15 Milligram orally one qhs Parvez Andrewstephan Cartagena Carisoprodol TAKE 1 TABLET BY MOUTH THREE TIMES DAILY Orally Active 350 Milligram Orally tid Mitzi Cartagena Carisoprodol 1 tablet as needed Orally Active 350 MG Orally Four times a day Mitzi Cartagena Carvedilol 1 tablet with food Orally Active 6.25 MG Orally BID Parvez Cartagena PredniSONE 2 tabs NA Active 10 Milligram QD Mitzi Cartagena Pantoprazole Sodium TAKE 1 TABLET BY MOUTH THREE TIMES DAILY BEFORE MEALS NA Active 40 Milligram Parvez Cartagena Vitamin D (Ergocalciferol) 1 capsule NA Active 33438 once a week Mitzi Cartagena Folic Acid 1 tab orally Active 1.0 Milligram orally BID Parvez Cartagena Zocor 1 tablet in the evening Orally Active 20 MG Orally QD Tyler Castro Cartagena Lasix 1 tablet Orally Active 20 MG Orally QD Parvez Cartagena Atrovent as directed Inhalation Active 18 MCG/ACT Inhalation prn Parvez Cartagena Multaq 1 tablet with meals Orally Active 400 MG Orally BID Parvez Cartagena Potassimin 1 tablet Orally Active Orally Once a day Parvez Cartagena Thiamine 1 capsule Orally Active Orally Once a day Pravez Cartagena Xanax 1 tablet Orally Active 0.5 MG Orally Three times a day Mitzi Cartagena Flovent HFA 1 puff Inhalation Active 44 MCG/ACT Inhalation BID Parvez Cartagena PredniSONE 1 tablet NA Active 10 MG Once a day Geoff Cartagena Vitamin D (Ergocalciferol) 1 capsule Orally Active 47914 Orally ONCE A WEEK Parvez Cartagena Benlysta 10MG/KG IV NA Active 10MG/KG Q 4 WKS Tyler Castro Cartagena Temazepam TAKE ONE CAPSULE BY MOUTH ONCE DAILY AT BEDTIME Orally Active 30 MG Orally q hs Geoff Cartagena Temazepam TAKE ONE CAPSULE BY MOUTH ONCE DAILY AT BEDTIME FOR 90 DAYS NA Active 15 Tyler Castro Cartagena Temazepam TAKE ONE CAPSULE BY MOUTH ONCE DAILY AT BEDTIME FOR 90 DAYS Orally Active 15 MG Orally q hs Tellezomaira Cartagena Allergies, Adverse Reactions, Alerts Substance Category Reaction Severity Reaction type Status Date Reported Comments Source Benlysta Adverse Reaction personality change, fatigue, nausea Adverse Reaction Active 04/16/2014 Castro Cartagena Janet Adverse Reaction Info Not Available Adverse Reaction Active 11/25/2016 Castro Cartagena Immunizations Immunization Date Given Site Status Last Updated Comments Source Prolia 02/24/2016 completed Castro Cartagena Depomedrol 04/16/2014 completed Castro Cartagena Results Order Name Results Value Reference Range Date Interpretation Comments Source Foot series DX Foot series DX CLINICAL HISTORY : , - pain in right foot m79.671 EXAM : 3 views of the right foot 08/17/2017 8:18 AM CDT TECHNIQUE: AP, lateral, and oblique views of the right foot COMPARISON : none FINDINGS : There is an acute, oblique fracture through the neck of the 5th metatarsal. There is no involvement of the articular surface. There is adjacent soft tissue swelling. The bony alignment is normal. The inter-tarsal, tarsometatarsal, metatarsophalangeal, and interphalangeal joints are normal. IMPRESSION: Acute, oblique extra articular 5th metatarsal fracture 08/17/2017 - - Read by: Kenroy Lawton MD Dictated Date/time: 08/17/17 08:44 Electronically Signed by: Kenroy Lawton MD 08/17/17 08:45 FINAL REPORT KIMBERLY Tucker Chest 2 views DX Chest 2 views DX Examination: Chest x-ray, 2 views History: cough, fever Comparison: 01/11/2013 Findings: Cardiac silhouette is normal in size. Subtle left perihilar opacity is noted. No pleural effusion or pneumothorax is seen. The osseous structures are without focal abnormality. IMPRESSION: Subtle left perihilar opacity. This may be artifactual and represent superimposition of shadows. However, an early pneumonia in this region cannot be excluded. SL: 16 08/23/2014 - - Read by: Felice Lam MD Dictated Date/time: 08/23/14 14:38 Electronically Signed by: Felice Lam MD 08/23/14 14:39 FINAL REPORT Formerly named [facility] MCH 29.8 pg 27.0 - 31.0 01/13/2013 Normal Formerly named [facility] MCV 92.4 fL 81.0 - 99.0 01/13/2013 Normal [facility] HEMATOLOGY MCHC 32.3 g/dL 32.0 - 36.0 01/13/2013 [facility] HEMATOLOGY RDW 16.3 % 11.5 - 14.5 01/13/2013 [facility] HEMATOLOGY MPV 6.2 fL 7.4 - 10.4 01/13/2013 [facility] HEMATOLOGY Platelet 476 K/CMM 133 - 450 01/13/2013 [facility] HEMATOLOGY RBC 3.42 M/CMM 4.20 - 5.40 01/13/2013 [facility] HEMATOLOGY WBC 10.3 K/CMM 3.7 - 10.4 01/13/2013 [facility] HEMATOLOGY Hgb 10.2 g/dL 12.0 - 16.0 01/13/2013 [facility] HEMATOLOGY Hct 31.6 % 36.0 - 48.0 01/13/2013 [facility] HEMATOLOGY Basophils # 0.0 K/CMM 0.0 - 0.2 01/13/2013 [facility] HEMATOLOGY Monocytes # 0.8 K/CMM 0.0 - 0.8 01/13/2013 [facility] HEMATOLOGY Eosinophils # 0.1 K/CMM 0.0 - 0.5 01/13/2013 [facility] HEMATOLOGY Lymphocytes 14.3 % 20.0 - 40.0 01/13/2013 [facility] HEMATOLOGY Eosinophils 0.5 % 0.0 - 4.0 01/13/2013 [facility] HEMATOLOGY Monocytes 8.0 % 2.0 - 12.0 01/13/2013 [facility] HEMATOLOGY Basophils 0.1 % 0.0 - 1.0 01/13/2013 [facility] HEMATOLOGY Lymphocytes # 1.5 K/CMM 1.0 - 5.5 01/13/2013 [facility] HEMATOLOGY Segs-Bands # 7.9 K/CMM 1.5 - 8.1 01/13/2013 [facility] HEMATOLOGY Segs 77.1 % 45.0 - 75.0 01/13/2013 [facility] HEMATOLOGY PT 17.7 s 12.0 - 14.7 01/13/2013 [facility] HEMATOLOGY INR 1.44 0.85 - 1.17 01/13/2013 [place] 5Interpretive Data: RECOMMENDED RANGES FOR PROTIME INR: 2.0-3.0 for most medical and surgical thromboembolic states. 2.5-3.5 for artificial heart valves and recurrent embolism. INR SHOULD BE USED ONLY FOR PATIENTS ON STABLE ANTICOAGULANT THERAPY. [facility] CHEMISTRY Sodium Lvl 133 meq/L 135 - 145 01/12/2013 LOW [facility] CHEMISTRY Chloride Lvl 90 meq/L 95 - 109 01/12/2013 LOW [facility] CHEMISTRY Potassium Lvl 3.9 meq/L 3.5 - 5.1 01/12/2013 Normal [facility] CHEMISTRY eGFR 97 mL/min/1.73m2 01/12/2013 NA 1Result Comment: The eGFR is calculated using the CKD-EPI formula. In most young, healthy individuals the eGFR will be >90 mL/min/1.73m2. The eGFR declines with age. An eGFR of 60-89 may be normal in some populations, particularly the elderly, for whom the CKD-EPI formula has not been extensively validated. Use of the eGFR is not recommended in the following populations: Individuals with unstable creatinine concentrations, including patients and those with serious co-morbid conditions. Patients with extremes in muscle mass or diet. The data above are obtained from the National Kidney Disease Education Program (NKDEP) which additionally recommends that when the eGFR is used in patients with extremes of body mass index for purposes of drug dosing, the eGFR should be multiplied by the estimated BMI. [facility] CHEMISTRY Glucose Lvl 89 mg/dL 70 - 99 01/12/2013 Normal 3Interpretive Data: Adult reference range values reflect the clinical guidelines of the [place] [employer]. [facility] CHEMISTRY Creatinine Lvl 0.7 mg/dL 0.5 - 1.4 01/12/2013 Normal [facility] CHEMISTRY Calcium Lvl 9.3 mg/dL 8.5 - 10.5 01/12/2013 Normal [facility] CHEMISTRY CO2 31 meq/L 24 - 32 01/12/2013 Normal [facility] CHEMISTRY BUN 9 mg/dL 7 - 22 01/12/2013 Normal [facility] CHEMISTRY AGAP 15.9 meq/L 10.0 - 20.0 01/12/2013 Normal [facility] CHEMISTRY Magnesium Lvl 1.6 mg/dL 1.8 - 2.4 01/12/2013 LOW [facility] HEMATOLOGY Segs-Bands # 6.6 K/CMM 1.5 - 8.1 01/12/2013 Normal [facility] HEMATOLOGY Lymphocytes # 1.3 K/CMM 1.0 - 5.5 01/12/2013 Normal [facility] HEMATOLOGY Monocytes # 0.9 K/CMM 0.0 - 0.8 01/12/2013 [facility] HEMATOLOGY Basophils 0.2 % 0.0 - 1.0 01/12/2013 Normal [facility] HEMATOLOGY Eosinophils 1.2 % 0.0 - 4.0 01/12/2013 Normal [facility] HEMATOLOGY Basophils # 0.0 K/CMM 0.0 - 0.2 01/12/2013 Normal [facility] HEMATOLOGY Eosinophils # 0.1 K/CMM 0.0 - 0.5 01/12/2013 Normal [facility] HEMATOLOGY Monocytes 9.7 % 2.0 - 12.0 01/12/2013 Normal [facility] HEMATOLOGY Lymphocytes 14.5 % 20.0 - 40.0 01/12/2013 LOW [facility] HEMATOLOGY Segs 74.4 % 45.0 - 75.0 01/12/2013 Normal [facility] HEMATOLOGY MPV 6.3 fL 7.4 - 10.4 01/12/2013 [facility] HEMATOLOGY RDW 15.8 % 11.5 - 14.5 01/12/2013 [facility] HEMATOLOGY MCHC 32.4 g/dL 32.0 - 36.0 01/12/2013 Normal [facility] HEMATOLOGY Platelet 439 K/CMM 133 - 450 01/12/2013 Normal [facility] HEMATOLOGY MCV 92.6 fL 81.0 - 99.0 01/12/2013 Normal Formerly named [facility] MCH 30.0 pg 27.0 - 31.0 01/12/2013 Normal [facility] HEMATOLOGY RBC 3.19 M/CMM 4.20 - 5.40 01/12/2013 [facility] HEMATOLOGY Hct 29.6 % 36.0 - 48.0 01/12/2013 [facility] HEMATOLOGY Hgb 9.6 g/dL 12.0 - 16.0 01/12/2013 [facility] HEMATOLOGY WBC 8.9 K/CMM 3.7 - 10.4 01/12/2013 Normal [facility] HEMATOLOGY INR 1.20 0.85 - 1.17 01/12/2013 [place] 6Interpretive Data: RECOMMENDED RANGES FOR PROTIME INR: 2.0-3.0 for most medical and surgical thromboembolic states. 2.5-3.5 for artificial heart valves and recurrent embolism. INR SHOULD BE USED ONLY FOR PATIENTS ON STABLE ANTICOAGULANT THERAPY. [facility] HEMATOLOGY PT 15.4 s 12.0 - 14.7 01/12/2013 [facility] URINALYSIS UA Color Ltyellow 01/11/2013 [facility] URINALYSIS UA Urobilinogen <=1.0 mg/dL
*NA*
(01/11/2013 16:13:49) <sup> </sup> 0.1 - 1.0 01/11/2013 [facility] URINALYSIS UA Bacteria Occasional /HPF *NA* (01/11/2013 16:13:49) None Seen 01/11/2013 [facility] URINALYSIS UA Turbidity Clear (01/11/2013 16:13:49) Clear 01/11/2013 Normal [facility] URINALYSIS UA Spec Grav 1.008 <=1.030 01/11/2013 Normal [facility] URINALYSIS UA pH 8.0 5.0 - 8.0 01/11/2013 Normal [facility] URINALYSIS UA Ketones Negative mg/dL *NA* (01/11/2013 16:13:49) Negative 01/11/2013 [facility] URINALYSIS UA Bili Negative *NA* (01/11/2013 16:13:49) Negative 01/11/2013 [facility] URINALYSIS UA Blood Negative (01/11/2013 16:13:49) Negative 01/11/2013 Normal [facility] URINALYSIS UA Protein Negative mg/dL (01/11/2013 16:13:49) Negative 01/11/2013 Normal [facility] URINALYSIS UA Glucose Negative mg/dL *NA* (01/11/2013 16:13:49) Negative 01/11/2013 [facility] URINALYSIS UA WBC 5 /HPF 0 - 5 01/11/2013 Normal [facility] URINALYSIS UA RBC null 0 - 2 01/11/2013 Normal [facility] URINALYSIS UA Sq Epi Occasional /LPF *NA* (01/11/2013 16:13:49) Few 01/11/2013 [facility] URINALYSIS UA Nitrite Negative (01/11/2013 16:13:49) Negative 01/11/2013 Normal [facility] URINALYSIS UA Leuk Est Negative (01/11/2013 16:13:49) Negative 01/11/2013 Normal [facility] Chest 2 views Chest 2 views PA and LATERAL CHEST (2 views) HISTORY: Dyspnea There are no prior studies available for comparison. FINDINGS: The lungs are clear. There is mild flattened the hemidiaphragms suggestive of COPD. There is no evidence of an active or acute process within the chest. There slight tenting of the left hemidiaphragm. There is minimal blunting of the left posterior sulcus probably representing scarring. The heart and pulmonary vasculature are within normal limits. There are no pleural effusions. The regional skeleton is unremarkable. CONCLUSION: 1. No active disease. 2. Findings suggestive of COPD. Coding: Chest 2 views CPT Code: 28741 SL: 12 Martin Sierra M.D. 01/11/2013 - - Read by: Martin Sierra Dictated Date/time: 01/12/13 07:40 Electronically Signed by: Martin Sierra MD 01/12/13 07:41 FINAL REPORT Formerly named [facility] PT 16.7 s 12.0 - 14.7 01/11/2013 [facility] INR 1.33 0.85 - 1.17 01/11/2013 [place] 7Interpretive Data: RECOMMENDED RANGES FOR PROTIME INR: 2.0-3.0 for most medical and surgical thromboembolic states. 2.5-3.5 for artificial heart valves and recurrent embolism. INR SHOULD BE USED ONLY FOR PATIENTS ON STABLE ANTICOAGULANT THERAPY. [facility] HEMATOLOGY RBC 2.89 M/CMM 4.20 - 5.40 01/11/2013 LOW Formerly named [facility] Hgb 8.7 g/dL 12.0 - 16.0 01/11/2013 [facility] RDW 15.9 % 11.5 - 14.5 01/11/2013 [facility] WBC 15.7 K/CMM 3.7 - 10.4 01/11/2013 [facility] MCH 30.0 pg 27.0 - 31.0 01/11/2013 Normal Formerly named [facility] Hct 27.0 % 36.0 - 48.0 01/11/2013 LOW Formerly named [facility] MCV 93.4 fL 81.0 - 99.0 01/11/2013 Normal Formerly named [facility] Platelet 421 K/CMM 133 - 450 01/11/2013 Normal Formerly named [facility] MPV 6.2 fL 7.4 - 10.4 01/11/2013 LOW Formerly named [facility] MCHC 32.2 g/dL 32.0 - 36.0 01/11/2013 Normal [facility] HEMATOLOGY Segs 91.3 % 45.0 - 75.0 01/11/2013 [facility] HEMATOLOGY Plt Morph Normal (01/11/2013 11:53:00) 01/11/2013 Normal [facility] HEMATOLOGY RBC Morph Normal (01/11/2013 11:53:00) 01/11/2013 Normal [facility] HEMATOLOGY Lymphocytes # 0.8 K/CMM 1.0 - 5.5 01/11/2013 LOW [facility] HEMATOLOGY Basophils 0.1 % 0.0 - 1.0 01/11/2013 Normal [facility] HEMATOLOGY Eosinophils 0.2 % 0.0 - 4.0 01/11/2013 Normal [facility] HEMATOLOGY Lymphocytes 4.8 % 20.0 - 40.0 01/11/2013 LOW [facility] HEMATOLOGY Monocytes 3.6 % 2.0 - 12.0 01/11/2013 Normal [facility] HEMATOLOGY Basophils # 0.0 K/CMM 0.0 - 0.2 01/11/2013 Normal [facility] HEMATOLOGY Eosinophils # 0.0 K/CMM 0.0 - 0.5 01/11/2013 Normal [facility] HEMATOLOGY Monocytes # 0.6 K/CMM 0.0 - 0.8 01/11/2013 Normal [facility] HEMATOLOGY Segs-Bands # 14.4 K/CMM 1.5 - 8.1 01/11/2013 HI [facility] BLOOD BANK RESULTS ABO/Rh A POS 01/10/2013 Unknown [facility] BLOOD BANK RESULTS Antibody Scrn Negative (01/10/2013 15:15:00) 01/10/2013 Normal [facility] BLOOD BANK RESULTS FFP product Product available (01/10/2013 15:15:00) 01/10/2013 Normal [facility] CHEMISTRY AGAP 14.6 meq/L 10.0 - 20.0 01/10/2013 Normal [facility] CHEMISTRY A/G Ratio 1.0 0.7 - 1.6 01/10/2013 Normal [facility] CHEMISTRY Globulin 3.2 g/dL 2.0 - 4.0 01/10/2013 Normal [facility] CHEMISTRY B/C Ratio 8 6 - 25 01/10/2013 Normal [facility] CHEMISTRY Chloride Lvl 97 meq/L 95 - 109 01/10/2013 Normal [facility] CHEMISTRY Potassium Lvl 4.6 meq/L 3.5 - 5.1 01/10/2013 Normal [facility] CHEMISTRY Sodium Lvl 134 meq/L 135 - 145 01/10/2013 LOW [facility] CHEMISTRY eGFR 72 mL/min/1.73m2 01/10/2013 NA 2Result Comment: The eGFR is calculated using the CKD-EPI formula. In most young, healthy individuals the eGFR will be >90 mL/min/1.73m2. The eGFR declines with age. An eGFR of 60-89 may be normal in some populations, particularly the elderly, for whom the CKD-EPI formula has not been extensively validated. Use of the eGFR is not recommended in the following populations: Individuals with unstable creatinine concentrations, including patients and those with serious co-morbid conditions. Patients with extremes in muscle mass or diet. The data above are obtained from the National Kidney Disease Education Program (NKDEP) which additionally recommends that when the eGFR is used in patients with extremes of body mass index for purposes of drug dosing, the eGFR should be multiplied by the estimated BMI. [facility] CHEMISTRY CO2 27 meq/L 24 - 32 01/10/2013 Normal [facility] CHEMISTRY Creatinine Lvl 0.9 mg/dL 0.5 - 1.4 01/10/2013 Normal [facility] CHEMISTRY BUN 7 mg/dL 7 - 22 01/10/2013 Normal [facility] CHEMISTRY Total Protein 6.3 g/dL 6.4 - 8.4 01/10/2013 LOW [facility] CHEMISTRY Calcium Lvl 8.5 mg/dL 8.5 - 10.5 01/10/2013 Normal [facility] CHEMISTRY Albumin Lvl 3.1 g/dL 3.5 - 5.0 01/10/2013 LOW [facility] CHEMISTRY Alk Phos 50 unit/L 39 - 136 01/10/2013 Normal [facility] CHEMISTRY AST 13 unit/L 0 - 37 01/10/2013 Normal [facility] CHEMISTRY ALT 20 unit/L 0 - 65 01/10/2013 Normal [facility] CHEMISTRY Bili Total null 0.2 - 1.3 01/10/2013 LOW [facility] CHEMISTRY Glucose Lvl 106 mg/dL 70 - 99 01/10/2013 [place] 4Interpretive Data: Adult reference range values reflect the clinical guidelines of the [place] [employer]. [facility] HEMATOLOGY RBC Morph Normal (01/10/2013 15:15:00) 01/10/2013 Normal [facility] HEMATOLOGY Plt Morph Normal (01/10/2013 15:15:00) 01/10/2013 Normal [facility] Vital Signs Vital Sign Value Date Comments Source Weight 156 11/25/2016 Castro Cartagena Height 59 11/25/2016 Castro Cartagena Temperature Oral (F) 98.1 F 11/25/2016 Castro Cartagena Heart Rate 88 11/25/2016 Castro Cartagena Diastolic (mm Hg) 80 11/25/2016 Castro Cartagena Systolic (mm Hg) 138 11/25/2016 Castro Cartagena Weight 163.6 08/20/2016 Castro Cartagena Height 59 08/20/2016 Castro Cartagena Temperature Oral (F) 97.2 F 08/20/2016 Castro Cartagena Heart Rate 80 08/20/2016 Castro Cartagena Diastolic (mm Hg) 60 08/20/2016 Castro Cartagena Systolic (mm Hg) 118 08/20/2016 Castro Cartagena Weight 150 02/24/2016 Castro Cartagena Height 59 02/24/2016 Castro Cartagena Temperature Oral (F) 98.0 F 02/24/2016 Castro Cartagena Heart Rate 96 02/24/2016 Castro Cartagena Diastolic (mm Hg) 80 02/24/2016 Castro Cartagena Systolic (mm Hg) 136 02/24/2016 Castro Cartagena Weight 149 12/24/2015 Castro Cartagena Height 58 12/24/2015 Castro Cartagena Temperature Oral (F) 97.8 F 12/24/2015 Castro Cartagena Heart Rate 80 12/24/2015 Castro Cartagena Diastolic (mm Hg) 80 12/24/2015 Castro Cartagena Systolic (mm Hg) 122 12/24/2015 Castro Cartagena Weight 158 05/27/2015 Castro Cartagena Height 58 05/27/2015 Castro Cartagena Temperature Oral (F) 97.2 F 05/27/2015 Castro Cartagena Heart Rate 80 05/27/2015 Castro Cartagena Diastolic (mm Hg) 87 05/27/2015 Castro Cartagena Systolic (mm Hg) 137 05/27/2015 Castro Cartagena Weight 162 04/29/2015 Castro Cartagena Height 58 04/29/2015 Castro Cartagena Temperature Oral (F) 97.0 F 04/29/2015 Castro Cartagena Heart Rate 80 04/29/2015 Castro Cartagena Diastolic (mm Hg) 86 04/29/2015 Castro Cartagena Systolic (mm Hg) 128 04/29/2015 Castro Cartagena Weight 123 04/16/2014 Castro Cartagena Height 58 04/16/2014 Castro Cartagena Temperature Oral (F) 97.3 F 04/16/2014 Castro Cartagena Heart Rate 74 04/16/2014 Castro Cartagena Diastolic (mm Hg) 70 04/16/2014 Castro Cartagena Systolic (mm Hg) 106 04/16/2014 Castro Cartagena Temperature Oral (F) 96.5 F 10/05/2013 Castro Cartagena Heart Rate 84 10/05/2013 Castro Cartagena Diastolic (mm Hg) 78 10/05/2013 Castro Cartagena Systolic (mm Hg) 118 10/05/2013 [facility] Cartagena Temperature Oral (F) 98.1 F 01/13/2013 [facility] Respitory Rate 18 01/13/2013 [facility] Heart Rate 73 01/13/2013 [facility] Diastolic (mm Hg) 84 01/13/2013 [facility] Systolic (mm Hg) 140 01/13/2013 [facility] Temperature Oral (F) 97.5 F 01/13/2013 [facility] Diastolic (mm Hg) 80 01/13/2013 [facility] Heart Rate 64 01/13/2013 [facility] Respitory Rate 18 01/13/2013 [facility] Systolic (mm Hg) 141 01/13/2013 [facility] Systolic (mm Hg) 130 01/13/2013 [facility] Diastolic (mm Hg) 74 01/13/2013 [facility] Heart Rate 68 01/13/2013 [facility] Respitory Rate 18 01/13/2013 [facility] Temperature Oral (F) 98.6 F 01/13/2013 [facility] Weight 47.727 01/10/2013 [facility] Height 149.86 cm 01/10/2013 [facility] Weight 47.727 01/10/2013 [facility] Height 149.86 cm 01/10/2013 [facility] Encounters Location Location Details Encounter Type Encounter Number Reason For Visit Attending Provider ADM Date DC Date Status Source [id number] 787.03 - VOMITING ALONE TIBURCIO ARROYO 06/05/2011 Active OPID Sullivan [facility] Inpatient [id number] COUMADIN TOXICITY KANWARPREET BAWEJA 01/10/2013 01/13/2013 Active [facility] Donte Cartagena MD Follow up [id number] 10/05/2013 10/05/2013 Castro Cartagena MD Follow up [id number] 10/05/2013 10/05/2013 Castro Cartagena MD Follow up [id number] 10/05/2013 10/05/2013 Castro Cartagena MD Follow up [id number] 10/05/2013 10/05/2013 Castro Cartagena MD Follow up [id number] 10/05/2013 10/05/2013 Castro Cartagena MD Follow up [id number] 10/05/2013 10/05/2013 Castro Cartagena MD Follow up [id number] 10/05/2013 10/05/2013 Castro Cartagena MD Follow up [id number] 10/05/2013 10/05/2013 Castro Cartagena MD Follow up [id number] 10/05/2013 10/05/2013 Castro Cartagena MD Follow up [id number] 10/05/2013 10/05/2013 Castro Cartagena MD Follow up [id number] 10/05/2013 10/05/2013 Castro Cartagena MD Follow up [id number] 10/05/2013 10/05/2013 Castro Cartagena MD Follow up [id number] 10/05/2013 10/05/2013 Castro Cartagena MD Follow up [id number] 10/05/2013 10/05/2013 Castro Cartagena MD Follow up [id number] 10/05/2013 10/05/2013 Castro Cartagena MD Follow up [id number] 10/05/2013 10/05/2013 Castro Cartagena MD Follow up [id number] 10/05/2013 10/05/2013 Castro Cartagena MD Follow up [id number] 10/05/2013 10/05/2013 Castro Cartagena MD Follow up [id number] 10/05/2013 10/05/2013 Castro Cartagena MD Follow up [id number] 10/05/2013 10/05/2013 Castro Cartagena MD Follow up [id number] 10/05/2013 10/05/2013 Castro Cartagena MD Follow up [id number] 10/05/2013 10/05/2013 Castro Cartagena MD Follow up [id number] 10/05/2013 10/05/2013 Castro Cartagena MD Follow up [id number] 10/05/2013 10/05/2013 Castro Cartagena MD Follow up [id number] 10/05/2013 10/05/2013 Castro Cartagena MD Follow up [id number] 10/05/2013 10/05/2013 Castro Cartagena MD Follow up [id number] 10/05/2013 10/05/2013 Castro Cartagena MD Follow up [id number]-[id number] 10/05/2013 10/05/2013 Castro Cartagena MD Follow up [id number] 10/05/2013 10/05/2013 Castro Cartagena MD Follow up [id number] 10/05/2013 10/05/2013 Castro Cartagena MD Follow up [id number]-o2tg-36hx57zp56r6 10/05/2013 10/05/2013 Castro Cartagena MD Follow up 83ds2tlt-59c4-9562-200y-h420lz0k6839 10/05/2013 10/05/2013 Castro Cartagena MD Follow up [id number]-[id number] 10/05/2013 10/05/2013 Castro Cartagena MD Follow up [id number]-[id number]-[id number] 10/05/2013 10/05/2013 Castro Cartagena MD Follow up 83a1mrq2-g335-33c7-9603-p967f303f90y 10/05/2013 10/05/2013 Castro Cartagena MD Follow up [id number]-487o-vz84-4yv6n39djb78 10/05/2013 10/05/2013 Castro Cartagena MD Follow up [id number]-85o3-0da2max56166 10/05/2013 10/05/2013 Castro Cartagena MD Follow up [id number]-v874-oqya77542oy6 10/05/2013 10/05/2013 Castro Cartagena MD Follow up [id number]-u2ua-[id number] 10/05/2013 10/05/2013 Castro Cartagena MD Follow up [id number]-nqlb-5829-mqa9-pbq23m77563a 10/05/2013 10/05/2013 Castro Cartagena MD Follow up [id number]-[id number] 10/05/2013 10/05/2013 Castro Cartagena MD Follow up [id number]-o6wr0fs2p080 10/05/2013 10/05/2013 Castro Cartagena MD Follow up [id number]-[id number]-cd94-jc05n61nc29o 10/05/2013 10/05/2013 Castro Cartagena MD Follow up [id number]-dg93-6o2j7b673c2o 10/05/2013 10/05/2013 Castro Cartagena MD Follow up [id number]-fhbd-[id number] 10/05/2013 10/05/2013 Castro Cartagena MD Follow up [id number]-6nfm-[id number] 10/05/2013 10/05/2013 Castro Cartagena MD Follow up [id number]-ve7v-921schk80713 10/05/2013 10/05/2013 Castro Cartagena MD Follow up [id number]-[id number] 10/05/2013 10/05/2013 Castro Cartagena MD Prolia [id number]-[id number] 11/02/2013 11/02/2013 Castro Cartagena MD Prolia f439sa03-x550-2w1s-3w0w-g6ocq9j4i49l 11/02/2013 11/02/2013 MD Sherice Gonzales [id number]-18ym-0162-337065u169gx 11/02/2013 11/02/2013 MD Sherice Gonzales [id number]-811s-w091-jwaxe97p1760 11/02/2013 11/02/2013 MD Evie Gonzalesia 50r20r99-3w8w-94dj-8yku-e8um1b3p4660 11/02/2013 11/02/2013 Castro aCrtagena MD Prolia d277n8x5-00ko-225y-6rnf-4f0a6569f141 11/02/2013 11/02/2013 MD Evie Gonzalesia [id number]-042x-8c6m-s7lv-187770699t68 11/02/2013 11/02/2013 MD Evie Gonzalesia [id number]-5ek0-0702-55x3-5108u5644509 11/02/2013 11/02/2013 Castro Cartagena MD Prolia fh3g517l-s702-379g-10a5-1h90b24cko1z 11/02/2013 11/02/2013 MD Sherice Gonzales nop264lo-j9n2-7963-qt17-mksa27xkak73 11/02/2013 11/02/2013 MD Sherice Gonzales q4d6b089-g686-55t1-7869-114059c4em14 11/02/2013 11/02/2013 MD Sherice Gonzales 7702h141-60to-42o2-603x-ni788r8q0a65 11/02/2013 11/02/2013 MD Sherice Gonzales b9d86l5k-930d-05b0-be8a-5405bt3fi7e4 11/02/2013 11/02/2013 MD Sherice Gonzales 3128gm3u-7m34-070u-vlb4-0d2f6d4v85f5 11/02/2013 11/02/2013 MD Sherice Gonzales fgos4390-7751-5074-q586-141t6z5y8130 11/02/2013 11/02/2013 MD Sherice Gonzales 3043ki34-t0o8-584n-951e-v17s8d9q30fc 11/02/2013 11/02/2013 MD Sherice Gonzales 431unyfy-67fq-5aq33ie2-mv0g-95o50699c75y 11/02/2013 11/02/2013 MD Sherice Gonzales 02g7s9zu-t8m8-7j71-1893-59kj562b2p4c 11/02/2013 11/02/2013 MD Sherice Gonzales un467jw0-wlv2-1j5p-0993-6z3o2912729l 11/02/2013 11/02/2013 MD Sherice Gonzales [id number]-01og-wu21-47931726f8r0 11/02/2013 11/02/2013 MD Sherice Gonzales 5306my8x-5n1q-57o5-j862-78862n0914d4 11/02/2013 11/02/2013 MD Sherice Gonzales ss9n5srp-o790-191f-8830-176t8771855l 11/02/2013 11/02/2013 MD Sherice Gonzales h5h364tg-55p7-5518-x106-r8hv5dg3523d 11/02/2013 11/02/2013 MD Sherice Gonzales 952o3eo0-6060-35w2-n62v-4b36831h876k 11/02/2013 11/02/2013 MD Sherice Gonzales 91b4889k-o0yg-6b1z-8rs6-22nevt114351 11/02/2013 11/02/2013 MD Sherice Gonzales 9046d34s-uy1d-20i3-ih11-37k826qhb901 11/02/2013 11/02/2013 MD Sherice Gonzales 7q21l07q-92ik-2r06-13h0-1154of980hnn 11/02/2013 11/02/2013 MD Sherice Gonzales 5gw7j660-zy17-05g8-3p82-s80837bz9276 11/02/2013 11/02/2013 MD Sherice Gonzales vvu4m1mz-9865-6t98-gv2i-0rd484327864 11/02/2013 11/02/2013 MD Sherice Gonzales [id number]-j4h3-82x5-cav4-7ieb7a919ix8 11/02/2013 11/02/2013 MD Sherice Gonzales 51c5p9st-4x24-849c-z025-621j1o8a30r0 11/02/2013 11/02/2013 MD Sherice Gonzales y20d42be-8241-7467-2r58-jdz4yw8703dj 11/02/2013 11/02/2013 MD Sherice Gonzales 63ufl974-l350-68c3-j9gy-ysz88p544c57 11/02/2013 11/02/2013 MD Sherice Gonzales 0l7o3q39-g8q2-3g00-3685-x69439353fkf 11/02/2013 11/02/2013 MD Sherice Gonzales 0mu07851-cgok-3ssh-gwk1-z8qr0411i77y 11/02/2013 11/02/2013 MD Sherice Gonzales p5464l25-15fg-89m0-t7k0-21x3jt8407nn 11/02/2013 11/02/2013 MD Sherice Gonzales 1va4q3iy-6844-384c-j6l6-g26c30m0u6m0 11/02/2013 11/02/2013 MD Sherice Gonzales g23rq27g-26z9-1pp0-3pt6-5s3y6t2z757z 11/02/2013 11/02/2013 MD Sherice Gonzales 1pv42b70-sssb-9e24-4501-75z7ahbus546 11/02/2013 11/02/2013 MD Sherice Gonzales w92104ov-89q5-01bw-b7j7-62qi84409997 11/02/2013 11/02/2013 MD Sherice Gonzales muu409l3-3d34-8v00-x90s-619k2w27e748 11/02/2013 11/02/2013 MD Sherice Gonzales vh2670d4-ul70-41c5-51br-93032u6f6f1e 11/02/2013 11/02/2013 MD Sherice Gonzales 3cn9t50h-00bj-615d-y45z-i762l8yc2q80 11/02/2013 11/02/2013 MD Sherice Gonzales sytf0i10-3bx5-25d7-44n6-0pbzsh918059 11/02/2013 11/02/2013 MD Sherice Gonzales [id number]-ig53-8s17-f2r1-02rdw4638i73 11/02/2013 11/02/2013 MD Sherice Gonzales gg216b72-554t-3091-74d0-ny3001ek3wdp 11/02/2013 11/02/2013 MD Sherice Gonzales 85uk13n9-s608-4014-907c-ji9r9050mro8 11/02/2013 11/02/2013 Castro Cartagena MD refill temazepam s684215n-3128-4u00-jytt-1e4o2aaa5683 11/10/2013 11/10/2013 Castro Cartagena MD refill temazepam 13357990-a013-8k25-1pxo-96n478m33858 11/10/2013 11/10/2013 Castro Cartagena MD refill temazepam 7rzw1xe3-zx88-93q5-q7u6-645fi884trh7 11/10/2013 11/10/2013 Castro Cartagena MD refill temazepam 3if21vk9-0t40-82o9-302z-710e66ck76ug 11/10/2013 11/10/2013 Castro Cartagena MD refill temazepam v57p4817-097t-6qkt-1b2s-b0752e5kveh7 11/10/2013 11/10/2013 Castro Cartagena MD refill temazepam 17u99rp0-1r56-9299-u681-16o90m0274v7 11/10/2013 11/10/2013 Castro Cartagena MD refill temazepam 24eql09l-93v4-7y75-1553-013t766ed061 11/10/2013 11/10/2013 Castro Cartagena MD refill temazepam s79gz354-o57l-527u-m08x-61i9783g4h70 11/10/2013 11/10/2013 Castro Cartagena MD refill temazepam 2l450a11-i763-2274-vt64-q46a652722ze 11/10/2013 11/10/2013 Castro Cartagena MD refill temazepam 5w301134-79o4-1s61-nu62-646mpom34402 11/10/2013 11/10/2013 Castro Cartagena MD refill temazepam [id number]-u133-4x2502d32469 11/10/2013 11/10/2013 Castro Cartagena MD refill temazepam 3d3r0s8c-7461-40x0-3457-6692o0l866i1 11/10/2013 11/10/2013 Castro Cartagena MD refill temazepam 486a6ozx-c634-5965-yu7r-hf964hqr2500 11/10/2013 11/10/2013 Castro Cartagena MD refill temazepam tc5p3401-103a-9k7n-714h-291a049722z4 11/10/2013 11/10/2013 Castro Cartagena MD refill temazepam w1i4f7f4-e67x-8272-530u-lqvd15tbux01 11/10/2013 11/10/2013 Castro Cartagena MD refill temazepam 2tv161y3-01hv-81h3-g7ov-5ur5ga1nha8c 11/10/2013 11/10/2013 Castro Cartagena MD refill temazepam 04dipq67-1440-3zg8-s3c5-7y2xlc5188i1 11/10/2013 11/10/2013 Castro Cartagena MD refill temazepam m73ts016-1w0t-0515-kt90-284f9t05ub0x 11/10/2013 11/10/2013 Castro Cartagena MD refill temazepam 258h98y0-99a1-7v29-i302-u2751sle056e 11/10/2013 11/10/2013 Castro Cartagena MD refill temazepam 9906foj2-77df-5407-1pbq-ic0bq5ts2012 11/10/2013 11/10/2013 Castro Cartagena MD refill temazepam b13rurc9-9gw2-56g3-xu12-58053x1vs8lo 11/10/2013 11/10/2013 Castro Cartagena MD refill temazepam 7k856vk1-9991-0i40-kybl-j48s4c4t14k8 11/10/2013 11/10/2013 Castro Cartagena MD refill temazepam 2v81qjz9-8038-502h-exxo-786q4313d998 11/10/2013 11/10/2013 Castro Cartagena MD refill temazepam 8c67g15h-5k48-34ft-s7y2-08h712ke9516 11/10/2013 11/10/2013 Castro Cartagena MD refill temazepam pglgk87k-63pe-46xp-l9cs-v0i7t06pr8q6 11/10/2013 11/10/2013 Castro Cartagena MD refill temazepam 6q7293ru-37k0-3506-t7o1-09y8aze7t2wq 11/10/2013 11/10/2013 Castro Cartagena MD refill temazepam 80nyn234-la4o-08dh-c519-45lux8qh1953 11/10/2013 11/10/2013 Castro Cartagena MD refill temazepam e717rtc7-pf89-8426-n5v5-3ngg063e5b3y 11/10/2013 11/10/2013 Castro Cartagena MD refill temazepam 14m3330a-1544-27q3-c79c-9p31d68y0ctt 11/10/2013 11/10/2013 Castro Cartagena MD refill temazepam 729x734x-53c6-410c-c7a7-y672fl1f6f03 11/10/2013 11/10/2013 Castro Cartagena MD refill temazepam 83d398ii-0935-3662-6977-3no6284ct438 11/10/2013 11/10/2013 Castro Cartagena MD refill temazepam 96t842y9-k406-35d7-981b-417t775b371d 11/10/2013 11/10/2013 Castro Cartagena MD refill temazepam b36cx578-y2t1-231v-o801-b1dk0319318k 11/10/2013 11/10/2013 Castro Cartagnea MD refill temazepam 46gr43m2-7c9w-43m1-0fd9-o9r247c8q418 11/10/2013 11/10/2013 Castro Cartagena MD refill temazepam 1zg746a6-9op1-7upm-cpc3-8kmwm6u1s3d3 11/10/2013 11/10/2013 Castro Cartagena MD refill temazepam f9mekyd9-deuf-3ffe-2312-o8wsv12tief6 11/10/2013 11/10/2013 Castro Cartagena MD refill temazepam 0118h7dd-y955-0o97-2lr0-4nx8l48l2n99 11/10/2013 11/10/2013 Castro Cartagena MD refill temazepam 9llo4jsd-362c-1b91-1sq8-0n029dd746i3 11/10/2013 11/10/2013 Castro Cartagena MD refill temazepam 54zrle08-svth-8968-8erx-984l09v1l0e7 11/10/2013 11/10/2013 Castro Cartagena MD refill temazepam 73z41d5l-ukyc-67nv-j7yv-9v421vk2596v 11/10/2013 11/10/2013 Castro Cartagena MD refill temazepam 2sw127jz-hb70-8660-mup6-843jp6w501x4 11/10/2013 11/10/2013 Castro Cartagena MD refill temazepam 3h3f3213-zrx6-6t7m-7qf3-pk134h1k5i38 11/10/2013 11/10/2013 Castro Cartagena MD refill temazepam 5e361g9m-813m-3552-eue3-7165a1x7196n 11/10/2013 11/10/2013 Castro Cartagena MD refill temazepam 8713atsd-1a97-61032h25-9563-34ul-74gic72wu896 11/10/2013 11/10/2013 Castro Cartagena MD refill temazepam f1j4g43o-3a51-4161-4h1p-qhxi3372hjo7 11/10/2013 11/10/2013 Castro Cartagena MD refill temazepam ii1d7n9o-9m3l-46y1-151d-kg546549w8l4 11/10/2013 11/10/2013 Castro Cartagena MD refill temazepam 57y937u1-c5c8-1462-2521-y863r2nyg65t 11/10/2013 11/10/2013 Castro Cartagena MD Unknown j59asv7j-vs56-495d-qa83-18iqe60n0c8x 11/12/2013 11/12/2013 Castro Cartagena MD Unknown 1st1qw77-3978-474z-6o4x-9k971exg8j08 11/12/2013 11/12/2013 Castro Cartagena MD Unknown [id number]-6q90-wywi-20799u150047 11/12/2013 11/12/2013 Castro Cartagena MD Unknown [id number]-i6g2-53zk-udpj-ui016881586d 11/12/2013 11/12/2013 Castro Cartagena MD Unknown 0qj05h8b-7711-3o60-y84e-n4837a0ql9zv 11/12/2013 11/12/2013 Castro Cartagena MD Unknown n09v086n-4h4k-3172-449w-0l065y24j6k7 11/12/2013 11/12/2013 Castro Cartagena MD Unknown 8plq7c2t-40h5-1383-4c1l-p6ogj66ru174 11/12/2013 11/12/2013 Castro Cartagena MD Unknown l69ty2j8-9060-9n97-tk6s-17y39i23vk0z 11/12/2013 11/12/2013 Castro Cartagena MD Unknown 2769c7y3-8wpk-20ck-ne76-05s0on2l0k0q 11/12/2013 11/12/2013 Castro Cartagena MD Unknown [id number]-[id number]-e0l0420yz2k3 11/12/2013 11/12/2013 Castro Cartagena MD Unknown 1vq383t4-2854-1844-fv80-3y582sh32ma7 11/12/2013 11/12/2013 Castro Cartagena MD Unknown [id number]-08hn-rw3593g036lz 11/12/2013 11/12/2013 Castro Cartagena MD Unknown 56t5d81c-apjn-1211-5j43-li9649zy114j 11/12/2013 11/12/2013 Castro Cartagena MD Unknown v238g3m4-9c23-1855-c41o-jp30h047r56w 11/12/2013 11/12/2013 Castro Cartagena MD Unknown 42bf9y6b-4974-5q1p-oa18-jh59krr8n9z5 11/12/2013 11/12/2013 Castro Cartagena MD Unknown oz3yy4ms-d2b6-4u99-a2e7-2k9z9ufor464 11/12/2013 11/12/2013 Castro Cartagena MD Unknown 4j2su8ga-w007-36lx-2szm-9n856jpsc96n 11/12/2013 11/12/2013 Castro Cartagena MD Unknown 1b9u6r14-rk72-51ex-at2j-9n6971fhm888 11/12/2013 11/12/2013 Castro Cartagena MD Unknown 5m7zk047-sqb5-2js2-213p-376f3fv38lj5 11/12/2013 11/12/2013 Castro Cartagena MD Unknown [id number]-nj19-3479-74j5-895671zu5k2o 11/12/2013 11/12/2013 Castro Cartagena MD Unknown [id number]-b5z0-03t2m5f512u1 11/12/2013 11/12/2013 Castro Cartagena MD Unknown [id number]-j43e-[id number] 11/12/2013 11/12/2013 Castro Cartagena MD Unknown 8p582p8s-ofk2-9103-38yj-s72l964341xp 11/12/2013 11/12/2013 Castro Cartagena MD Unknown [id number]-z414-23yb-9ho8-878kap7j3253 11/12/2013 11/12/2013 Castro Cartagena MD Unknown tu86r6q2-8582-4601-e32j-840zvix97026 11/12/2013 11/12/2013 Castro Cartagena MD Unknown 72g5n508-m70i-6v6y-srdl-884k0gknf61y 11/12/2013 11/12/2013 Castro Cartagena MD Unknown 146dcc05-8ehn-47c4-j058-21m59169977z 11/12/2013 11/12/2013 Castro Cartagena MD Unknown [id number]-m62v-6e15-45in-0u0868t5s978 11/12/2013 11/12/2013 Castro Cartagena MD Unknown [id number]-oo8l-4982-383d-5u4444i9324v 11/12/2013 11/12/2013 Castro Cartagena MD Unknown 1et7vur2-95za-3c0s-tj96-px60c9gstx3g 11/12/2013 11/12/2013 Castro Cartagena MD Unknown mg858u3w-eo7y-0359-4op8-377m97o2w4k3 11/12/2013 11/12/2013 Castro Cartagena MD Unknown [id number]-996u-0m48-4e51-v2l26h58i1l2 11/12/2013 11/12/2013 Castro Cartagena MD Unknown [id number]-[id number] 11/12/2013 11/12/2013 Castro Cartagena MD Unknown [id number]-2803-9zg0-259310rsciy8 11/12/2013 11/12/2013 Castro Cartagena MD Unknown [id number]-12e5-77e3u86j67zp 11/12/2013 11/12/2013 Castro Cartagena MD Unknown [id number]-u5e7pg068h7y 11/12/2013 11/12/2013 Castro Cartagena MD Unknown [id number]-[id number] 11/12/2013 11/12/2013 Castro Cartagena MD Unknown [id number]-q3r2-7bbg-h0j6-2gha24909p35 11/12/2013 11/12/2013 Castro Cartagena MD Unknown [id number] 11/12/2013 11/12/2013 Castro Cartagena MD Unknown v06qwjqz-e6e0-972k-x5v0-723q674941h6 11/12/2013 11/12/2013 Castro Cartagena MD Unknown [id number] 11/12/2013 11/12/2013 Castro Cartagena MD Unknown [id number]-n05k-f6k876u60cz2 11/12/2013 11/12/2013 Castro Cartagena MD Unknown [id number]-t1p0-469fs454os28 11/12/2013 11/12/2013 Castro Cartagena MD Unknown [id number]-0789-0252-1vd7-ak1p4202nyf4 11/12/2013 11/12/2013 Castro Cartagena MD Unknown [id number]-[id number]-h57g-v5y41s977e60 11/12/2013 11/12/2013 Castro Cartagena MD Unknown [id number]-4989-96nz-8e9y-5326282nyt24 11/12/2013 11/12/2013 Castro Cartagena MD Unknown [id number] 11/12/2013 11/12/2013 Castro Cartagena MD soma refill [id number]-40rs-b16t347940ns 11/30/2013 11/30/2013 Castro Cartagena MD soma refill 5yoxsbn7-3527-997q-r6w3-ie9k2857b20z 11/30/2013 11/30/2013 Castro Cartagena MD soma refill [id number] 11/30/2013 11/30/2013 Castro Cartagena MD soma refill [id number]-r004-37qy-ezy4-142md2hs94dr 11/30/2013 11/30/2013 Castro Cartagena MD soma refill [id number]-8q0c-dmo0-5428p28x04c7 11/30/2013 11/30/2013 Castro Cartagena MD soma refill 960d872p-1wvp-9042-47gr-i671g43lj4b9 11/30/2013 11/30/2013 Castro Cartagena MD soma refill [id number]-27v8-zv6ct53zt8vh 11/30/2013 11/30/2013 Castro Cartagena MD soma refill [id number]-st7g33xt1b60 11/30/2013 11/30/2013 Castro Cartagena MD soma refill [id number]-[id number] 11/30/2013 11/30/2013 Castro Cartagena MD soma refill [id number] 11/30/2013 11/30/2013 Castro Cartagena MD soma refill 9970c3aq-1f2y-64ww-e251-63t12sb92j5s 11/30/2013 11/30/2013 Castro Cartagena MD soma refill [id number]-w279-236t15ob9004 11/30/2013 11/30/2013 Castro Cartagena MD soma refill ce5rt5o6-x2i8-799c-180m-7304k39y056p 11/30/2013 11/30/2013 Castro Cartagena MD soma refill c1r7rl2j-07f9-3uz0-9n7j-79voz3a5x4w8 11/30/2013 11/30/2013 Castro Cartagena MD soma refill k06x8g72-z1u2-7t43-9885-s6313p8key7m 11/30/2013 11/30/2013 Castro Cartagena MD soma refill 08ye1x4m-4f7z-6593-2926-17b8l4j20as8 11/30/2013 11/30/2013 Castro Cartagena MD soma refill [id number]-102d-s175-5v61j4x7778o 11/30/2013 11/30/2013 Castro Cartagena MD soma refill og89n581-l1f1-4474-k584-601ck1l4hnzj 11/30/2013 11/30/2013 Castro Cartagena MD soma refill [id number]-p46m-[id number] 11/30/2013 11/30/2013 Castro Cartagena MD soma refill 0p8y09u3-5321-1859-l7wl-d09w40lcqm7o 11/30/2013 11/30/2013 Castro Cartagena MD soma refill [id number]-757o-89c9-d58095c74e73 11/30/2013 11/30/2013 Castro Cartagena MD soma refill [id number]-5uh8-25u9z45qq1b8 11/30/2013 11/30/2013 Castro Cartagena MD soma refill 2p0f3h4n-f446-447c-y9zc-[id number] 11/30/2013 11/30/2013 Castro Cartagena MD soma refill x19owp49-g19t-0986-9172-l211w4kf509s 11/30/2013 11/30/2013 Castro Cartagena MD soma refill h907uzg3-d5e4-82g1-88g7-l454q75106y6 11/30/2013 11/30/2013 Castro Cartagena MD soma refill 86i1007t-67s5-9247-y337-zk420z6nn318 11/30/2013 11/30/2013 Castro Cartagena MD soma refill e30jfr50-87g8-4879-4j9s-451ovq5g9siz 11/30/2013 11/30/2013 Castro Cartagena MD soma refill [id number]-g8wd-0685kylu6563 11/30/2013 11/30/2013 Castro Cartagena MD soma refill [id number] 11/30/2013 11/30/2013 Castro Cartagena MD soma refill [id number] 11/30/2013 11/30/2013 Castro Cartagena MD [facility]a refill [id number] 11/30/2013 11/30/2013 Castro Cartagena MD [facility]a refill [id number] 11/30/2013 11/30/2013 Castro Cartagena MD [facility]a refill [id number] 11/30/2013 11/30/2013 Castro Cartagena MD soma refill [id number] 11/30/2013 11/30/2013 Castro Cartagena MD soma refill [id number] 11/30/2013 11/30/2013 Castro Cartagena MD soma refill [id number] 11/30/2013 11/30/2013 Castro Cartagena MD soma refill [id number] 11/30/2013 11/30/2013 Castro Cartagena MD [facility]a refill [id number] 11/30/2013 11/30/2013 Castro Cartagena MD soma refill [id number] 11/30/2013 11/30/2013 Castro Cartagena MD soma refill [id number] 11/30/2013 11/30/2013 Castro Cartagena MD soma refill [id number] 11/30/2013 11/30/2013 Castro Cartagena MD soma refill [id number] 11/30/2013 11/30/2013 Castro Cartagena MD soma refill [id number] 11/30/2013 11/30/2013 Castro Cartagena MD soma refill [id number] 11/30/2013 11/30/2013 Castro Cartagena MD soma refill [id number] 11/30/2013 11/30/2013 Castro Cartagena MD soma refill [id number] 11/30/2013 11/30/2013 Castro Cartagena MD soma refill [id number] 11/30/2013 11/30/2013 MD evie Gonzalesia [id number] 12/29/2013 12/29/2013 MD evie Gonzalesia [id number] 12/29/2013 12/29/2013 MD evie Gonzalesia [id number] 12/29/2013 12/29/2013 MD sherice Gonzales [id number] 12/29/2013 12/29/2013 MD sherice Gonzales [id number] 12/29/2013 12/29/2013 MD sherice Gonzales [id number] 12/29/2013 12/29/2013 MD sherice Gonzales [id number] 12/29/2013 12/29/2013 MD sherice Gonzales [id number] 12/29/2013 12/29/2013 MD sherice Gonzales [id number] 12/29/2013 12/29/2013 MD sherice Gonzales [id number] 12/29/2013 12/29/2013 MD sherice Gonzales [id number] 12/29/2013 12/29/2013 MD sherice Gonzales [id number] 12/29/2013 12/29/2013 MD sherice Gonzales [id number] 12/29/2013 12/29/2013 MD sherice Gonzales [id number] 12/29/2013 12/29/2013 MD sherice Gonzales [id number] 12/29/2013 12/29/2013 MD sherice Gonzales [id number] 12/29/2013 12/29/2013 MD sherice Gonzales [id number] 12/29/2013 12/29/2013 MD sherice Gonzales [id number] 12/29/2013 12/29/2013 MD sherice Gonzales [id number] 12/29/2013 12/29/2013 MD sherice Gonzales [id number] 12/29/2013 12/29/2013 MD sherice Gonzales [id number] 12/29/2013 12/29/2013 MD sherice Gonzales [id number] 12/29/2013 12/29/2013 MD sherice Gonzales [id number] 12/29/2013 12/29/2013 MD sherice Gonzales [id number] 12/29/2013 12/29/2013 MD sherice Gonzales [id number] 12/29/2013 12/29/2013 MD sherice Gonzales [id number] 12/29/2013 12/29/2013 MD sherice Gonzales [id number] 12/29/2013 12/29/2013 MD sherice Gonzales [id number] 12/29/2013 12/29/2013 MD sherice Gonzales [id number] 12/29/2013 12/29/2013 MD sherice Gonzales [id number] 12/29/2013 12/29/2013 MD sherice Gonzales [id number] 12/29/2013 12/29/2013 MD sherice Gonzales [id number] 12/29/2013 12/29/2013 MD sherice Gonzales [id number] 12/29/2013 12/29/2013 MD sherice Gonzales [id number] 12/29/2013 12/29/2013 MD sherice Gonzales [id number] 12/29/2013 12/29/2013 MD sherice Gonzales [id number] 12/29/2013 12/29/2013 Castro Cartagena MD prolia [id number] 12/29/2013 12/29/2013 Castro Cartagena MD prolia [id number] 12/29/2013 12/29/2013 Castro Cartagena MD prolia [id number] 12/29/2013 12/29/2013 Castro Cartagena MD prolia [id number] 12/29/2013 12/29/2013 Castro Cartagena MD prolia [id number] 12/29/2013 12/29/2013 Castro Cartagena MD prolia [id number] 12/29/2013 12/29/2013 Castro Cartagena MD prolia [id number] 12/29/2013 12/29/2013 Castro Cartagena MD Bloodwork Orders [id number] 01/08/2014 01/08/2014 Castro Cartagena MD Bloodwork Orders [id number] 01/08/2014 01/08/2014 Castro Cartagena MD Bloodwork Orders [id number] 01/08/2014 01/08/2014 Castro Cartagena MD Bloodwork Orders [id number] 01/08/2014 01/08/2014 Castro Cartagena MD Bloodwork Orders [id number] 01/08/2014 01/08/2014 Castro Cartagena MD Bloodwork Orders [id number] 01/08/2014 01/08/2014 Castro Cartagena MD Bloodwork Orders [id number] 01/08/2014 01/08/2014 Castro Cartagena MD Bloodwork Orders [id number] 01/08/2014 01/08/2014 Castro Cartagena MD Bloodwork Orders [id number] 01/08/2014 01/08/2014 Castro Cartagena MD Bloodwork Orders [id number] 01/08/2014 01/08/2014 Castro Cartagena MD Bloodwork Orders [id number] 01/08/2014 01/08/2014 Castro Cartagena MD Bloodwork Orders [id number] 01/08/2014 01/08/2014 Castro Cartagena MD Bloodwork Orders [id number] 01/08/2014 01/08/2014 Castro Cartagena MD Bloodwork Orders [id number] 01/08/2014 01/08/2014 Castro Cartagena MD Bloodwork Orders [id number] 01/08/2014 01/08/2014 Castro Cartagena MD Bloodwork Orders [id number] 01/08/2014 01/08/2014 Castro Cartagena MD Bloodwork Orders [id number] 01/08/2014 01/08/2014 Castro Cartagena MD Bloodwork Orders [id number] 01/08/2014 01/08/2014 Castro Cartagena MD Bloodwork Orders [id number] 01/08/2014 01/08/2014 Castro Cartagena MD Bloodwork Orders [id number] 01/08/2014 01/08/2014 Castro Cartagena MD Bloodwork Orders [id number] 01/08/2014 01/08/2014 Castro Cartagena MD Bloodwork Orders [id number] 01/08/2014 01/08/2014 Castro Cartagena MD Bloodwork Orders [id number] 01/08/2014 01/08/2014 Castro Cartagena MD Bloodwork Orders [id number] 01/08/2014 01/08/2014 Castro Cartagena MD Bloodwork Orders [id number] 01/08/2014 01/08/2014 Castro Cartagena MD Bloodwork Orders [id number] 01/08/2014 01/08/2014 Castro Cartagena MD Bloodwork Orders [id number] 01/08/2014 01/08/2014 Castro Cartagena MD Bloodwork Orders [id number] 01/08/2014 01/08/2014 Castro Cartagena MD Bloodwork Orders [id number] 01/08/2014 01/08/2014 Castro Cartagena MD Bloodwork Orders [id number] 01/08/2014 01/08/2014 Castro Cartagena MD Bloodwork Orders [id number] 01/08/2014 01/08/2014 Castro Cartagena MD Bloodwork Orders [id number] 01/08/2014 01/08/2014 Castro Cartagena MD Bloodwork Orders [id number] 01/08/2014 01/08/2014 Castro Cartagena MD Bloodwork Orders [id number] 01/08/2014 01/08/2014 Castro Cartagena MD Bloodwork Orders [id number] 01/08/2014 01/08/2014 Castro Cartagena MD Bloodwork Orders [id number] 01/08/2014 01/08/2014 Castro Cartagena MD Bloodwork Orders [id number] 01/08/2014 01/08/2014 Castro Cartagena MD Bloodwork Orders [id number] 01/08/2014 01/08/2014 Castro Cartagena MD Bloodwork Orders [id number] 01/08/2014 01/08/2014 Castro Cartagena MD Bloodwork Orders [id number] 01/08/2014 01/08/2014 Castro Cartagena MD Bloodwork Orders [id number] 01/08/2014 01/08/2014 Castro Cartagena MD Bloodwork Orders [id number] 01/08/2014 01/08/2014 Castro Cartagena MD Bloodwork Orders [id number] 01/08/2014 01/08/2014 Castro Cartagena MD RX Refill Request [id number] 02/16/2014 02/16/2014 Castro Cartagena MD RX Refill Request [id number] 02/16/2014 02/16/2014 Castro Cartagena MD RX Refill Request [id number] 02/16/2014 02/16/2014 Castro Cartagena MD RX Refill Request [id number] 02/16/2014 02/16/2014 Castro Cartagena MD RX Refill Request [id number] 02/16/2014 02/16/2014 Castro Cartagena MD RX Refill Request [id number] 02/16/2014 02/16/2014 Castro Cartagena MD RX Refill Request [id number] 02/16/2014 02/16/2014 Castro Cartagena MD RX Refill Request [id number] 02/16/2014 02/16/2014 Castro Cartagena MD RX Refill Request [id number] 02/16/2014 02/16/2014 Castro Cartagena MD RX Refill Request [id number] 02/16/2014 02/16/2014 Castro Cartagena MD RX Refill Request [id number] 02/16/2014 02/16/2014 Castro Cartagena MD RX Refill Request [id number] 02/16/2014 02/16/2014 Castro Cartagena MD RX Refill Request [id number] 02/16/2014 02/16/2014 Castro Cartagena MD RX Refill Request [id number] 02/16/2014 02/16/2014 Castro Cartagena MD RX Refill Request [id number] 02/16/2014 02/16/2014 Castro Cartagena MD RX Refill Request [id number] 02/16/2014 02/16/2014 Castro Cartagena MD RX Refill Request [id number] 02/16/2014 02/16/2014 Castro Cartagena MD RX Refill Request [id number] 02/16/2014 02/16/2014 Castro Cartagena MD RX Refill Request [id number] 02/16/2014 02/16/2014 Castro Cartagena MD RX Refill Request [id number] 02/16/2014 02/16/2014 Castro Cartagena MD RX Refill Request [id number] 02/16/2014 02/16/2014 Castro Cartagena MD RX Refill Request [id number] 02/16/2014 02/16/2014 Castro Cartagena MD RX Refill Request [id number] 02/16/2014 02/16/2014 Castro Cartagena MD RX Refill Request [id number] 02/16/2014 02/16/2014 Castro Cartagena MD RX Refill Request [id number] 02/16/2014 02/16/2014 Castro Cartagena MD RX Refill Request [id number] 02/16/2014 02/16/2014 Castro Cartagena MD RX Refill Request [id number] 02/16/2014 02/16/2014 Castro Cartagena MD RX Refill Request [id number] 02/16/2014 02/16/2014 Castro Cartagena MD RX Refill Request [id number] 02/16/2014 02/16/2014 Castro Cartagena MD RX Refill Request [id number] 02/16/2014 02/16/2014 Castro Cartagena MD RX Refill Request [id number] 02/16/2014 02/16/2014 Castro Cartagena MD RX Refill Request [id number] 02/16/2014 02/16/2014 Castro Cartagena MD RX Refill Request [id number] 02/16/2014 02/16/2014 Castro Cartagena MD RX Refill Request [id number] 02/16/2014 02/16/2014 Castro Cartagena MD RX Refill Request [id number] 02/16/2014 02/16/2014 Castro Cartagena MD RX Refill Request [id number] 02/16/2014 02/16/2014 Castro Cartagena MD RX Refill Request [id number] 02/16/2014 02/16/2014 Castro Cartagena MD RX Refill Request [id number] 02/16/2014 02/16/2014 Castro Cartagena MD RX Refill Request [id number] 02/16/2014 02/16/2014 Castro Cartagena MD RX Refill Request [id number] 02/16/2014 02/16/2014 Castro Cartagena MD RX Refill Request [id number] 02/16/2014 02/16/2014 Castro Cartagena MD Unknown [id number] 02/17/2014 02/17/2014 Castro Cartagena MD Unknown [id number] 02/17/2014 02/17/2014 Castro Cartagena MD Unknown [id number] 02/17/2014 02/17/2014 Castro Cartagena MD Unknown [id number] 02/17/2014 02/17/2014 Castro Cartagena MD Unknown [id number] 02/17/2014 02/17/2014 Castro Catragena MD Unknown [id number] 02/17/2014 02/17/2014 Castro Cartagena MD Unknown [id number] 02/17/2014 02/17/2014 Castro Cartagena MD Unknown [id number] 02/17/2014 02/17/2014 Castro Cartagena MD Unknown [id number] 02/17/2014 02/17/2014 Castro Cartagena MD Unknown [id number] 02/17/2014 02/17/2014 Castro Cartagena MD Unknown [id number] 02/17/2014 02/17/2014 Castro Cartagena MD Unknown [id number] 02/17/2014 02/17/2014 Castro Cartagena MD Unknown [id number] 02/17/2014 02/17/2014 Castro Cartagena MD Unknown [id number] 02/17/2014 02/17/2014 Castro Cartagena MD Unknown [id number] 02/17/2014 02/17/2014 Castro Cartagena MD Unknown [id number] 02/17/2014 02/17/2014 Castro Cartagena MD Unknown [id number] 02/17/2014 02/17/2014 Castro Cartagena MD Unknown [id number] 02/17/2014 02/17/2014 Castro Cartagena MD Unknown [id number] 02/17/2014 02/17/2014 Castro Cartagena MD Unknown [id number] 02/17/2014 02/17/2014 Castro Cartagena MD Unknown [id number] 02/17/2014 02/17/2014 Castro Cartagena MD Unknown [id number]-[id number] 02/17/2014 02/17/2014 Castro Cartagena MD Unknown [id number] 02/17/2014 02/17/2014 Castro Cartagena MD Unknown [id number]-x4pfot265pic 02/17/2014 02/17/2014 Castro Cartagena MD Unknown [id number] 02/17/2014 02/17/2014 Castro Cartagena MD Unknown [id number] 02/17/2014 02/17/2014 Castro Cartagena MD Unknown [id number] 02/17/2014 02/17/2014 Castro Cartagena MD Unknown [id number] 02/17/2014 02/17/2014 Castro Cartagena MD Unknown [id number] 02/17/2014 02/17/2014 Castro Cartagena MD Unknown [id number] 02/17/2014 02/17/2014 Castro Cartagena MD Unknown [id number] 02/17/2014 02/17/2014 Castro Cartagena MD Unknown [id number] 02/17/2014 02/17/2014 Castro Cartagena MD Unknown [id number] 02/17/2014 02/17/2014 Castro Cartagena MD Unknown [id number] 02/17/2014 02/17/2014 Castro Cartagena MD Unknown [id number] 02/17/2014 02/17/2014 Castro Cartagena MD Unknown [id number] 02/17/2014 02/17/2014 Castro Cartagena MD Unknown [id number] 02/17/2014 02/17/2014 Castro Cartagena MD Unknown [id number] 02/17/2014 02/17/2014 Castro Cartagena MD Unknown [id number] 02/17/2014 02/17/2014 Castro Cartagena MD Unknown [id number] 02/17/2014 02/17/2014 Castro Cartagena MD Unknown [id number] 02/17/2014 02/17/2014 Castro Cartagena MD REfill--SOMA/OV 4bgib82o-3433-9zqx-r3b7-5b9s8rocn2kv 03/13/2014 03/13/2014 Castro Cartagena MD REfill--SOMA/OV 4953m678-9t83-77a0-h7s2-6a2m7r3b1sp3 03/13/2014 03/13/2014 Castro Cartagena MD REfill--SOMA/OV 8083080j-j88e-6jt3-f26q-z92g2o539sa0 03/13/2014 03/13/2014 Castro Cartagena MD REfill--SOMA/OV 79356ya3-53wo-235r-6kx5-og82a34c2e8l 03/13/2014 03/13/2014 Castro Cartagena MD REfill--SOMA/OV q6128e6u-9135-059l-1512-04682iqf912q 03/13/2014 03/13/2014 Castro Cartagena MD REfill--SOMA/OV 55kmooz9-x72l-911e-l7i8-5g9445254042 03/13/2014 03/13/2014 Castro Cartagena MD REfill--SOMA/OV wew2y64i-37z9-5v20-8090-412025789m27 03/13/2014 03/13/2014 Castro Cartagena MD REfill--SOMA/OV 82x8ey85-ec19-69j3-bq41-bz58386173j8 03/13/2014 03/13/2014 Castro Cartagena MD REfill--SOMA/OV 5289613h-k785-6737-zovi-86o8yh97pj3w 03/13/2014 03/13/2014 Castro Cartagena MD REfill--SOMA/OV te5x6t7n-4080-0mz7-e0l8-39na1g96m82m 03/13/2014 03/13/2014 Castro Cartagena MD REfill--SOMA/OV [id number]-t5usi2t203k9 03/13/2014 03/13/2014 Castro Cartagena MD REfill--SOMA/OV q3246w17-3e0r-64ko-xr2p-8x79144549sr 03/13/2014 03/13/2014 Castro Cartagena MD REfill--SOMA/OV 8v368d81-g73y-7310-u281-6n3n51gz8xm2 03/13/2014 03/13/2014 Castro Cartagena MD REfill--SOMA/OV m5n67ay0-1314-3t0g-j195-324f42fv5cr5 03/13/2014 03/13/2014 Castro Cartagena MD REfill--SOMA/OV 0g914rvu-9qj1-446w-25v5-banv7q370o7d 03/13/2014 03/13/2014 Castro Cartagena MD REfill--SOMA/OV 892106mt-4756-9v3h-11o8-f62w87jy8c37 03/13/2014 03/13/2014 Castro Cartagena MD REfill--SOMA/OV 4e1295vf-j7kz-60wb-9pbw-wx083g1w6251 03/13/2014 03/13/2014 Castro Cartagena MD REfill--SOMA/OV 07a5484j-5ll4-99l5-m10c-d01tk0548a38 03/13/2014 03/13/2014 Castro Cartagena MD REfill--SOMA/OV r8ut8710-rw7k-658c-g8th-k9b1u63r42o7 03/13/2014 03/13/2014 Castro Cartagena MD REfill--SOMA/OV v3nkz77p-w0i4-4ga0-gh1z-m1tq2706mr46 03/13/2014 03/13/2014 Castro Cartagena MD REfill--SOMA/OV x9s4is10-p740-3jvk-21qk-1924rm5p5693 03/13/2014 03/13/2014 Castro Cartagena MD REfill--SOMA/OV 9533hvou-o77i-51rjm05m-23al-06st-axgw2p99b19c 03/13/2014 03/13/2014 Castro Cartagena MD REfill--SOMA/OV z01o9v6n-2685-8y46-7g08-495ztrw92289 03/13/2014 03/13/2014 Castro Cartagena MD REfill--SOMA/OV 22gvfrr9-8p08-3740-a743-5961mb7hsu41 03/13/2014 03/13/2014 Castro Cartagena MD REfill--SOMA/OV 95127h6y-750d-4k33-4ir7-14649q0072ks 03/13/2014 03/13/2014 Castro Cartagena MD REfill--SOMA/OV 60d7i9d0-z188-03hu-z84o-rm4a6r381m23 03/13/2014 03/13/2014 Castro Cartagena MD REfill--SOMA/OV 5l94583c-3200-2379-5631-109080k11108 03/13/2014 03/13/2014 Castro Cartagena MD REfill--SOMA/OV d1ee24j2-1s98-0296-3h3h-gp5527n1p75j 03/13/2014 03/13/2014 Castro Cartagena MD REfill--SOMA/OV 5k2v4115-0slt-8v75-h9j3-angjzq2t7346 03/13/2014 03/13/2014 Castro Cartagena MD REfill--SOMA/OV 7kwy0jwd-3hb4-4243-8ef7-w6bn3yn89063 03/13/2014 03/13/2014 Castro Cartagena MD REfill--SOMA/OV dfq0atec-922h-9ese-pu81-y6w7o20u83ad 03/13/2014 03/13/2014 Castro Cartagena MD REfill--SOMA/OV 967897sg-4vh4-720i-z0k5-kin221w8l90f 03/13/2014 03/13/2014 Castro Cartagena MD REfill--SOMA/OV 82581f4l-yzwb-22z4-2aqo-hg6jc11g8132 03/13/2014 03/13/2014 Castro Cartagena MD REfill--SOMA/OV o12574b8-8819-255i-u6d4-u3d5811n1j43 03/13/2014 03/13/2014 Castro Cartagena MD REfill--SOMA/OV fz4ca07w-494h-6n47-8a79-uo05sp6152v7 03/13/2014 03/13/2014 Castro Cartagena MD REfill--SOMA/OV 9v012b7b-9db5-57u5-7815-d6ll7b77q0i0 03/13/2014 03/13/2014 Castro Cartagena MD REfill--SOMA/OV 13r31d84-o7v3-6j77-703d-n0457885q4e8 03/13/2014 03/13/2014 Castro Cartagena MD REfill--SOMA/OV 9vy9wa33-r7a8-79n9-j657-1j929147604o 03/13/2014 03/13/2014 Castro Cartagena MD REfill--SOMA/OV e54up5h6-3mxn-0f4l-48xw-hkvaqh6jrwr6 03/13/2014 03/13/2014 Castro Cartagena MD MRI Bi Wrist 1729e3n5-8q3y-184a-01e6-5ed6o5798i5g 04/12/2014 04/12/2014 Castro Cartagena MD MRI Bi Wrist 498d6g90-2kg8-6pt8-x17p-1sdlm64ff816 04/12/2014 04/12/2014 Castro Cartagena MD MRI Bi Wrist h762hvw0-41u1-103a-1997-j113f6727m7b 04/12/2014 04/12/2014 Castro Cartagena MD MRI Bi Wrist 744e7ij4-7731-0815-1742-4dnb2f8r5zf5 04/12/2014 04/12/2014 Castro Cartagena MD MRI Bi Wrist [id number]-a824-06xpg586-18yk-87k8-2x74022by230 04/12/2014 04/12/2014 Castro Cartagena MD MRI Bi Wrist [id number]-66c8-az57-i9454f94nsz1 04/12/2014 04/12/2014 Castro Cartagena MD MRI Bi Wrist 7q4ty582-wmx5-15m9-d316-24ca87028mm8 04/12/2014 04/12/2014 Castro Cartagena MD MRI Bi Wrist 60q0o538-9899-45m5-m597-3793369h5it5 04/12/2014 04/12/2014 Castro Cartagena MD MRI Bi Wrist [id number]-5764-7ycq-7yf4-q948422287t2 04/12/2014 04/12/2014 Castro Cartagena MD MRI Bi Wrist iw3ycm29-l167-8mpa-h905-x808inf022ox 04/12/2014 04/12/2014 Castro Cartagena MD MRI Bi Wrist 95504c7c-21tp-71y5-o16b-h816l4491704 04/12/2014 04/12/2014 Castro Cartagena MD MRI Bi Wrist 2kcc61o5-b859-7k2k-w02q-7054572232v7 04/12/2014 04/12/2014 Castro Cartagena MD MRI Bi Wrist 514si28m-4tq5-2ug0-41w1-s4ti43u32096 04/12/2014 04/12/2014 Castro Cartagena MD MRI Bi Wrist [id number]-1pyz-8n76503369v3 04/12/2014 04/12/2014 Castro Cartagena MD MRI Bi Wrist 103868q3-rk7g-852j-068s-641v4604j633 04/12/2014 04/12/2014 Castro Cartagena MD MRI Bi Wrist cozls98q-gp81-9l4q-b4gp-675f177h2602 04/12/2014 04/12/2014 Castro Cartagena MD MRI Bi Wrist [id number]-xy75-1uo7-owi8-4dyq1g514921 04/12/2014 04/12/2014 Castro Cartagena MD MRI Bi Wrist [id number]-i4z7-46d6-8546-1ok1xjews309 04/12/2014 04/12/2014 Castro Cartagena MD MRI Bi Wrist 1167spw5-t973-2250-128k-st3u3gigf903 04/12/2014 04/12/2014 Castro Cartagena MD MRI Bi Wrist w16p8576-xjcr-2cy8-tipu-h0y4meg5s7kn 04/12/2014 04/12/2014 Castro Cartagena MD MRI Bi Wrist d0p396rn-0xhu-7o43-y151-2p8ei4v3u0p4 04/12/2014 04/12/2014 Castro Cartagena MD MRI Bi Wrist [id number] 04/12/2014 04/12/2014 Castro Cartagena MD MRI Bi Wrist 237co48x-8e8t-03u0-006j-26w6z21k58xu 04/12/2014 04/12/2014 Castro Cartagena MD MRI Bi Wrist [id number]-33e9-9y28-86u5-0t710e5z934c 04/12/2014 04/12/2014 Castro Cartagena MD MRI Bi Wrist [id number]-9b20-6iko1fcuk5a1 04/12/2014 04/12/2014 Castro Cartagena MD MRI Bi Wrist [id number]-t8w5-0358-g107-9epwv3242l61 04/12/2014 04/12/2014 Castro Cartagena MD MRI Bi Wrist [id number]-316y-7w57-rq87-j23s40623sqc 04/12/2014 04/12/2014 Castro Cartagena MD appt issue 54973gfg-5soh-70is-3f5x-5w8630f65ts3 04/13/2014 04/13/2014 Castro Cartagena MD appt issue [id number]-o906-8207-2z6b-15g9g309eriv 04/13/2014 04/13/2014 Castro Cartagena MD appt issue [id number] 04/13/2014 04/13/2014 Castro Cartagena MD appt issue f677efjy-9k1i-433p-1s21-zc78302jc843 04/13/2014 04/13/2014 Castro Cartagena MD appt issue 5a3kv78m-mg98-355g-jjq6-44l57864ej76 04/13/2014 04/13/2014 Castro Cartagena MD appt issue [id number]-v620-h1u06xur233g 04/13/2014 04/13/2014 Castro Cartagena MD appt issue 2247l8m9-u5u2-85am-k0cn-5zx3t2p5vb7d 04/13/2014 04/13/2014 Castro Cartagena MD appt issue 8799l16w-w79i-543w-jd7i-595783p10cnl 04/13/2014 04/13/2014 Castro Cartagena MD appt issue 192a1mh6-8l0d-78ka-9w12-reb96rz2zj79 04/13/2014 04/13/2014 Castro Cartagena MD appt issue 071al9q0-ghel-9q4q-ls73-4c29vofjuwl2 04/13/2014 04/13/2014 Castro Cartagena MD appt issue 28i682h6-0e1n-1x45-8d42-5s72ym5g765r 04/13/2014 04/13/2014 Castro Cartagena MD appt issue [id number] 04/13/2014 04/13/2014 Castro Cartagena MD appt issue y9k6d359-60y2-966l-j0h6-2joh8ij0443s 04/13/2014 04/13/2014 Castro Cartagena MD appt issue [id number]-8t84-zu42z3a8n910 04/13/2014 04/13/2014 Castro Cartagena MD appt issue [id number] 04/13/2014 04/13/2014 Castro Cartagena MD appt issue [id number] 04/13/2014 04/13/2014 Castro Cartagena MD appt issue [id number] 04/13/2014 04/13/2014 Castro Cartagena MD appt issue [id number] 04/13/2014 04/13/2014 Castro Cratagena MD appt issue [id number] 04/13/2014 04/13/2014 Castro Cartagena MD appt issue [id number] 04/13/2014 04/13/2014 Castro Cartagena MD appt issue [id number] 04/13/2014 04/13/2014 Castro Cartagena MD appt issue [id number] 04/13/2014 04/13/2014 Castro Cartagena MD appt issue [id number] 04/13/2014 04/13/2014 Castro Cartagena MD appt issue [id number] 04/13/2014 04/13/2014 Castro Cartagena MD appt issue [id number] 04/13/2014 04/13/2014 Castro Cartagena MD appt issue [id number] 04/13/2014 04/13/2014 Castro Cartagena MD appt issue [id number]-3u4f2drrqd61 04/13/2014 04/13/2014 Castro Cartagena MD appt issue [id number] 04/13/2014 04/13/2014 Castro Cartagena MD appt issue [id number] 04/13/2014 04/13/2014 Castro Cartagena MD appt issue [id number] 04/13/2014 04/13/2014 Castro Cartagena MD appt issue [id number] 04/13/2014 04/13/2014 Castro Cartagena MD appt issue [id number] 04/13/2014 04/13/2014 Castro Cartagena MD appt issue [id number] 04/13/2014 04/13/2014 Castro Cartagena MD appt issue [id number] 04/13/2014 04/13/2014 Castro Cartagena MD appt issue [id number] 04/13/2014 04/13/2014 Castro Cartagena MD appt issue [id number] 04/13/2014 04/13/2014 Castro Cartagena MD appt issue [id number] 04/13/2014 04/13/2014 Castro Cartagena MD appt issue [id number] 04/13/2014 04/13/2014 Castro Cartagena MD F/U [id number] 04/16/2014 04/16/2014 Castro Cartagena MD F/U [id number] 04/16/2014 04/16/2014 Castro Cartagena MD F/U [id number] 04/16/2014 04/16/2014 Castro Cartagena MD F/U [id number] 04/16/2014 04/16/2014 Castro Cartagena MD F/U [id number] 04/16/2014 04/16/2014 Castro Cartagena MD F/U [id number] 04/16/2014 04/16/2014 Castro Cartagena MD F/U [id number]-[id number] 04/16/2014 04/16/2014 Castro Cartagena MD F/U [id number] 04/16/2014 04/16/2014 Castro Cartagena MD F/U [id number] 04/16/2014 04/16/2014 Castro Cartagena MD F/U [id number] 04/16/2014 04/16/2014 Castro Cartagena MD F/U [id number] 04/16/2014 04/16/2014 Castro Cartagena MD F/U [id number] 04/16/2014 04/16/2014 Castro Cartagena MD F/U [id number] 04/16/2014 04/16/2014 Castro Cartagena MD F/U [id number] 04/16/2014 04/16/2014 Castro Cartagena MD F/U [id number] 04/16/2014 04/16/2014 Castro Cartagena MD F/U [id number]-e622u9z91ktq 04/16/2014 04/16/2014 Castro Cartagena MD F/U [id number]-[id number] 04/16/2014 04/16/2014 Castro Cartagena MD F/U [id number]-[id number] 04/16/2014 04/16/2014 Castro Cartagena MD F/U [id number] 04/16/2014 04/16/2014 Castro Cartagena MD F/U [id number] 04/16/2014 04/16/2014 Castro Cartagena MD F/U [id number] 04/16/2014 04/16/2014 Castro Cartagena MD F/U [id number]-fkw3-lw15v847j197 04/16/2014 04/16/2014 Castro Cartagena MD F/U [id number] 04/16/2014 04/16/2014 Castro Cartagena MD F/U [id number]-r58z-qa7ts86el6o8 04/16/2014 04/16/2014 Castro Cartagena MD F/U [id number] 04/16/2014 04/16/2014 Castro Cartagena MD F/U [id number]-f3s1-9p7fv547ywzh 04/16/2014 04/16/2014 Castro Cartagena MD F/U [id number]-p82kx01u0vbu 04/16/2014 04/16/2014 Castro Cartagena MD F/U [id number] 04/16/2014 04/16/2014 Castro Cartagena MD F/U [id number] 04/16/2014 04/16/2014 Castro Cartagena MD Pt. needs to know what to do. [id number] 04/17/2014 04/17/2014 Castro Cartagena MD Pt. needs to know what to do. [id number] 04/17/2014 04/17/2014 Castro Cartagena MD Pt. needs to know what to do. [id number] 04/17/2014 04/17/2014 Castro Cartagena MD Pt. needs to know what to do. [id number] 04/17/2014 04/17/2014 Castro Cartagena MD Pt. needs to know what to do. [id number] 04/17/2014 04/17/2014 Castro Cartagena MD Pt. needs to know what to do. [id number]-z0i0-1mw0y6g93d67 04/17/2014 04/17/2014 Castro Cartagena MD Pt. needs to know what to do. [id number]-[id number] 04/17/2014 04/17/2014 Castro Cartagena MD Pt. needs to know what to do. [id number]-kn66br0o27o7 04/17/2014 04/17/2014 Castro Cartagena MD Pt. needs to know what to do. [id number]-ijo2-s0i8ir9j891g 04/17/2014 04/17/2014 Castro Cartagena MD Pt. needs to know what to do. [id number]-190s-m6j6-50xs5l76037d 04/17/2014 04/17/2014 Castro Cartagena MD Pt. needs to know what to do. [id number]-vo558ay7kue5 04/17/2014 04/17/2014 Castro Cartagena MD Pt. needs to know what to do. [id number] 04/17/2014 04/17/2014 Castro Cartagena MD Pt. needs to know what to do. [id number]-l542-rxs8c9sk448x 04/17/2014 04/17/2014 Castro Cartagena MD Pt. needs to know what to do. [id number] 04/17/2014 04/17/2014 Castro Cartagena MD Pt. needs to know what to do. [id number] 04/17/2014 04/17/2014 Castro Cartagena MD Pt. needs to know what to do. [id number] 04/17/2014 04/17/2014 Castro Cartagena MD Pt. needs to know what to do. [id number]-[id number] 04/17/2014 04/17/2014 Castro Cartagena MD Pt. needs to know what to do. [id number] 04/17/2014 04/17/2014 Castro Cartagena MD Pt. needs to know what to do. [id number] 04/17/2014 04/17/2014 Castro Cartagena MD Pt. needs to know what to do. [id number] 04/17/2014 04/17/2014 Castro Cartagena MD Pt. needs to know what to do. [id number] 04/17/2014 04/17/2014 Castro Cartagena MD Pt. needs to know what to do. 2umz3j35-463y-56cn-b0ue-1wc4ows61752 04/17/2014 04/17/2014 Castro Cartagena MD Pt. needs to know what to do. 23rf1ck2-0c4w-4nn8-mc38-m9b1c7v015s9 04/17/2014 04/17/2014 Castro Cartagena MD Pt. needs to know what to do. 3164r58g-sro1-5wuo-7124-894007113029 04/17/2014 04/17/2014 Castro Cartagena MD Pt. needs to know what to do. 088cp078-s370-967w-wk2q-1lt0te5jgd3c 04/17/2014 04/17/2014 Castro Cartagena MD Pt. needs to know what to do. 15gl2z09-0526-747f-72y3-by09m9nd020i 04/17/2014 04/17/2014 Castro Cartagena MD Pt. needs to know what to do. f8gpbz4o-4200-023o-u71x-0c822m90li32 04/17/2014 04/17/2014 Castro Cartagena MD Pt. needs to know what to do. p0pj3wc6-4713-2mwc-z48a-0f503ol498v5 04/17/2014 04/17/2014 Castro Cartagena MD Pt. needs to know what to do. 291p24wl-6f36-2q3s-q0j9-bwivt8vcmw8u 04/17/2014 04/17/2014 Castro Cartagena MD Pt. needs to know what to do. vob5u833-4346-9360-s079-8f2aw5ggk744 04/17/2014 04/17/2014 Castro Cartagena MD Pt. needs to know what to do. y7516912-71xe-43dj-2197-5a37tmrb4nt7 04/17/2014 04/17/2014 Castro Cartagena MD Pt. needs to know what to do. 57873o54-3484-54e0-y0so-98p26942r1fh 04/17/2014 04/17/2014 Castro Cartagena MD Pt. needs to know what to do. 427r366c-a0e6-43ix-875r-807264rqs227 04/17/2014 04/17/2014 Castro Cartagena MD Pt. needs to know what to do. 2i40l742-t112-0o0y-t2r1-50gs34695jvc 04/17/2014 04/17/2014 Castro Cartagena MD Pt. needs to know what to do. m2869h6v-2j8x-005d-jy77-992q2thgt1g4 04/17/2014 04/17/2014 Castro Cartagena MD Pt. needs to know what to do. 1504569w-nida-7691-q489-483163s4ce75 04/17/2014 04/17/2014 Castro Cartagena MD Pt. needs to know what to do. f28a04ub-i34l-4sin-8373-49x281844892 04/17/2014 04/17/2014 Castro Cartagena MD Pt. needs to know what to do. s4doyhxn-3766-4502-4o47-9hclg4v2618b 04/17/2014 04/17/2014 Castro Cartagena MD NEW RX REQ 8b8633q7-64r1-3u25-2590-h69o1715ou43 04/17/2014 04/17/2014 Castro Cartagena MD NEW RX REQ 943j4jme-mgei-64t2-ti5e-8t667n3651t8 04/17/2014 04/17/2014 Castro Cartagena MD NEW RX REQ 0s58fx77-8gi3-64vd-7ly2-18fqz30eueow 04/17/2014 04/17/2014 Castro Cartagena MD NEW RX REQ [id number]-4950-6336-91h7w7939i18 04/17/2014 04/17/2014 Castro Cartagena MD NEW RX REQ 5134g934-63c8-2dtd-rv98-62t345xee78k 04/17/2014 04/17/2014 Castro Cartagena MD NEW RX REQ 492390j7-nb37-07i7-y15h-585x466suj11 04/17/2014 04/17/2014 Castro Cartagena MD NEW RX REQ 23r6e387-j0li-706z-i5ve-pi8wgii65x2x 04/17/2014 04/17/2014 Castro Cartagena MD NEW RX REQ 5p494r03-2c6z-4z46-02g4-5pm08d638v5t 04/17/2014 04/17/2014 Castro Cartagena MD NEW RX REQ jf27vd7g-27cz-87vx-4g41-4z497m791910 04/17/2014 04/17/2014 Castro Cartagena MD NEW RX REQ 75j30p3z-t558-2o15-567j-7t61k36842k6 04/17/2014 04/17/2014 Castro Cartagena MD NEW RX REQ 3824298a-17z1-22sm-ptjj-6288p8992afj 04/17/2014 04/17/2014 Castro Cartagena MD NEW RX REQ 51e925l0-518j-525y-9k88-14du6z4559fq 04/17/2014 04/17/2014 Csatro Cartagena MD NEW RX REQ jfp57p3n-f81g-64f7-v821-f86v85616m0m 04/17/2014 04/17/2014 Castro Cartagena MD NEW RX REQ 53r8l98w-tm69-8133-zia1-890on8ii6932 04/17/2014 04/17/2014 Castro Cartagena MD NEW RX REQ 69b3m07s-4y54-2672-5h51-wn419w1113jt 04/17/2014 04/17/2014 Castro Cartagena MD NEW RX REQ 0l9x4z7e-176e-3zt2-97n8-iwq392w5p024 04/17/2014 04/17/2014 Castro Cartagena MD NEW RX REQ 45zol51v-78q5-47ka-7828-h6o28ti94f02 04/17/2014 04/17/2014 Castro Cartagena MD NEW RX REQ 50718149-yrya-9m48-456r-6f5m20865r0i 04/17/2014 04/17/2014 Castro Cartagena MD NEW RX REQ g7098s66-2087-2mmm-rj0r-x0z012r67x53 04/17/2014 04/17/2014 Castro Cartagena MD NEW RX REQ 7889lm0q-76gg-6ow9-6s63-b0j75q7c1228 04/17/2014 04/17/2014 Castro Cartagena MD NEW RX REQ ayi25w1r-0cw2-5372-90w2-699gq91596x4 04/17/2014 04/17/2014 Castro Cartagena MD NEW RX REQ 802y8u57-nux1-1890-m534-713r63g178z2 04/17/2014 04/17/2014 Castro Cartagena MD NEW RX REQ 167736e2-jrp5-78xn-9471-2d0u10d99v88 04/17/2014 04/17/2014 Castro Cartagena MD NEW RX REQ 2kfbbm2x-7i22-21n4-p255-8i4707gdn845 04/17/2014 04/17/2014 Castro Cartagena MD NEW RX REQ kh72r435-m9a8-9hx6-543r-87i9m6459494 04/17/2014 04/17/2014 Castro Cartagena MD NEW RX REQ 56m35d20-2p53-8823-f055-68f798y94zb3 04/17/2014 04/17/2014 Castro Cartagena MD NEW RX REQ 3nj3e316-0124-9i6j-01j8-zte2u604gmor 04/17/2014 04/17/2014 Castro Cartagena MD NEW RX REQ 14x85943-20y7-02yc-vdg8-2ln9szb980y2 04/17/2014 04/17/2014 Castro Cartagena MD NEW RX REQ 3012u150-772p-0v51-94ke-l51bvz0nl4hl 04/17/2014 04/17/2014 Castro Cartagena MD NEW RX REQ 13yes310-7821-9ea8-0527-40e416s442k5 04/17/2014 04/17/2014 Castro Cartagena MD NEW RX REQ u6e7919v-m907-0lb0-ox48-2rj7o257rn1k 04/17/2014 04/17/2014 Castro Cartagena MD NEW RX REQ 40c7n2c9-4yja-0227-go49-86055966urm0 04/17/2014 04/17/2014 Castro Cartagena MD NEW RX REQ gs7pr22z-8320-7868-63x1-f96fd4227f31 04/17/2014 04/17/2014 Castro Cartagena MD NEW RX REQ 7oo40876-oqy5-585k-r177-sm06t5h71282 04/17/2014 04/17/2014 Castro aCrtagena MD NEW RX REQ 5yh2x21x-805o-6780-478g-xeu22wp17lzi 04/17/2014 04/17/2014 Castro Cartagena MD NEW RX REQ m9ms4l54-m214-6576-l164-8x7542yrl8p0 04/17/2014 04/17/2014 Castro Cartagena MD NEW RX REQ f072k586-q671-1rxu-01g2-ua960s71u637 04/17/2014 04/17/2014 Castro Cartagena MD NEW RX REQ x0v221en-339o-1ewi-15j6-es6wc823119o 04/17/2014 04/17/2014 Castro Cartagena MD Refill 33t68b08-8xqf-2s46-stgz-48c950748no8 04/19/2014 04/19/2014 Castro Cartagena MD Refill t4n818wi-w6s7-3d6i-5l5r-leq5190dbc8k 04/19/2014 04/19/2014 Castro Cartagena MD Refill 84z3685q-95z3-11h0-4831-130i52399c13 04/19/2014 04/19/2014 Castro Cartagena MD Refill 6249u70z-oy9t-2a82-0e6c-iw228m67ti6b 04/19/2014 04/19/2014 Castro Cartagena MD Refill 42n64w3k-02e7-3969-2aq5-7jzj1x44h5c7 04/19/2014 04/19/2014 Castro Cartagena MD Refill p515d527-z075-3602-9f5w-g5i9v0f34l29 04/19/2014 04/19/2014 Castro Cartagena MD Refill 4t13101a-93q4-3w42-s7p9-428xz13a0231 04/19/2014 04/19/2014 Castro Cartagena MD Refill 5396z87e-qq6t-628t-7924-3811433h12h9 04/19/2014 04/19/2014 Castro Cartagena MD Refill 79351cch-285y-040y-f510-799fq2052zd6 04/19/2014 04/19/2014 Castro Cartagena MD Refill 61q204i9-b479-03v8-1b5x-5fo7719622l0 04/19/2014 04/19/2014 Castro Cartagena MD Refill xv8m08z9-zro7-7452-6ocw-05cf615cd98i 04/19/2014 04/19/2014 Castro Cartagena MD Refill 49y62h32-633c-5l59-t4u4-520w8jd391f5 04/19/2014 04/19/2014 Castro Cartagena MD Refill mt4w7gqc-m684-9k41-k7o7-8148xm0c30h8 04/19/2014 04/19/2014 Castro Cartagena MD Refill xk0t54v5-a0n3-4x9x-j61z-aqm91d8z0e0l 04/19/2014 04/19/2014 Castro Cartagena MD Refill 350f92q2-6297-73n7-5y49-6gdp9so404j5 04/19/2014 04/19/2014 Castro Cartagena MD Refill [id number]-97e0-7n94-n4a5-ex0nf127h35z 04/19/2014 04/19/2014 Castro Cartagena MD Refill 3aor6u37-7w92-3559-84l9-1w0rd6939xd7 04/19/2014 04/19/2014 Castro Cartagena MD Refill ew117247-f7w5-6ejc-q934-k8u245c884f0 04/19/2014 04/19/2014 Castro Cartagena MD Refill f4s172wj-8qoi-64p2-z259-u6992b07b7c6 04/19/2014 04/19/2014 Castro Cartagena MD Refill 93q7497c-2872-8m67-v189-4oy06av378aw 04/19/2014 04/19/2014 Castro Cartagena MD Refill 656o3094-41x0-20ml-m4h5-f0nq71kvx297 04/19/2014 04/19/2014 Castro Cartagena MD Refill x0qzm64g-7b00-09f9-fc06-l22m11775495 04/19/2014 04/19/2014 Castro Cartagena MD Refill [id number]ot1 04/19/2014 04/19/2014 Castro Cartagena MD Refill 0c2l8wu5-9y2i-1763-2214-l49u2dc3a595 04/19/2014 04/19/2014 Castro Cartagena MD Refill 21e59je1-438j-2j97-avqs-bi4767t7p8x3 04/19/2014 04/19/2014 Castro Cartagena MD Refill [id number]-3717-y296-46ii059km424 04/19/2014 04/19/2014 Castro Cartagena MD Refill l59436c8-87qe-4x80-383x-4g6o5i5d0i23 04/19/2014 04/19/2014 Castro Cartagena MD Refill 35v3fon0-622i-1lk4-z9t0-24ptt7jmft0m 04/19/2014 04/19/2014 Castro Cartagena MD Refill 3q2ovdub-v498-95xv-8989-xe7b273f1oco 04/19/2014 04/19/2014 Castro Cartagena MD Refill 74cun46m-250c-86rn-o96w-dbbik989b0u4 04/19/2014 04/19/2014 Castro Cartagena MD Refill q14m5i9t-6p3t-914s-ecq9-4pd86p7nq3p4 04/19/2014 04/19/2014 Castro Cartagena MD Refill u16b788e-4130-0689-8j86-0a8682w128z5 04/19/2014 04/19/2014 Castro Cartagena MD Refill 9k062z5q-6p18-74q5-a40c-nj88s7vt5xpk 04/19/2014 04/19/2014 Castro Cartagena MD Refill l238qthf-64ym-0mf4-u938-lc7vgn6313q4 04/19/2014 04/19/2014 Castro Cartagena MD Refill y05t6938-54e2-775i-dfj4-jj5015914808 04/19/2014 04/19/2014 Castro Cartagena MD Refill [id number]-lp9i-3esv-8595-xiyfz96g20n8 04/19/2014 04/19/2014 Castro Cartagena MD Refill 8cq660tj-7668-5v4f-0571-fcmn0d635jx0 04/19/2014 04/19/2014 Castro Cartagena MD Refill [id number]-u130-1n8d-6ec1-787b2u6ym290 04/19/2014 04/19/2014 Castro Cartagena MD vitamin d g448k2c5-o992-293y-a1p0-0c53b18o019w 04/25/2014 04/25/2014 Castro Cartagena MD vitamin d 3l6q2m0s-65k2-4211-it3e-low264726i88 04/25/2014 04/25/2014 Castro Cartagena MD vitamin d 1nv09lk6-6046-681k-bf8u-886712099471 04/25/2014 04/25/2014 Castro Cartagena MD vitamin d 04235i01-t07e-82ym-8155-7j5i7410i371 04/25/2014 04/25/2014 Castro Cartagena MD vitamin d 00604148-306q-67j4-9rl7-46nmc0d2m582 04/25/2014 04/25/2014 Castro Cartagena MD vitamin d 2bxh86ug-o96h-1962-6571-4q24877qa9v2 04/25/2014 04/25/2014 Castro Cartagena MD vitamin d r4z49t7p-8i81-7j65-s621-7709wt3d6508 04/25/2014 04/25/2014 Castro Cartagena MD vitamin d 15858216-9qmu-8s44-6jri-i247t14utt8l 04/25/2014 04/25/2014 Castro Cartagena MD vitamin d 25246d3v-p26v-1s9n-02ij-c6u2v321xl79 04/25/2014 04/25/2014 Castro Cartagena MD vitamin d 1z4y0702-zfiu-8c37-91o6-2948o24h41j9 04/25/2014 04/25/2014 Castro Cartagena MD vitamin d ex5k6gm5-0228-2795-p159-xu8d79tf04f7 04/25/2014 04/25/2014 Castro Cartagena MD vitamin d oe50z10u-4rwr-2q01-94i5-35c1g3816c1w 04/25/2014 04/25/2014 Castro Cartagena MD vitamin d q17v6g0e-0243-589j-c613-591d186ku6y1 04/25/2014 04/25/2014 Castro Cartagena MD vitamin d 42xq8901-8223-875a-8ne2-efu8ex488yka 04/25/2014 04/25/2014 Castro Cartagena MD vitamin d 0176k6n5-tr72-36wo-3k42-62u56187lh9z 04/25/2014 04/25/2014 Castro Cartagena MD vitamin d d1564j8e-39he-7748-1474-33554u4sdfvb 04/25/2014 04/25/2014 Castro Cartagena MD vitamin d 15t366g7-k4ry-13sl-aku8-28022x383cdl 04/25/2014 04/25/2014 Castro Cartagena MD vitamin d 6g734u96-15tp-9014-h698-162459lx0019 04/25/2014 04/25/2014 Castro Cartagena MD vitamin d 9812141c-4c34-134a-b34g-4771e9437822 04/25/2014 04/25/2014 Castro Cartagena MD vitamin d 9828gp36-3914-1u42-v592-np66m57c7e02 04/25/2014 04/25/2014 Castro Cartagena MD vitamin d tzjx5448-g01v-258k-3626-2l9p0c24t2y0 04/25/2014 04/25/2014 Castro Cartagena MD vitamin d 207qa305-p377-1p6g-w32m-62417754i6i9 04/25/2014 04/25/2014 Castro Cartagena MD vitamin d 16v24x13-9228-69rm-p173-071l7q9rkwj6 04/25/2014 04/25/2014 Castro Cartagena MD vitamin d 46i57u96-1505-9p49-6604-e23ii96125ph 04/25/2014 04/25/2014 Castro Cartagena MD vitamin d x85p3ipf-mkh6-8833-xup4-284ss7s52m3z 04/25/2014 04/25/2014 Castro Cartagena MD vitamin d 2677230n-8618-576p-rf82-ov3h03550095 04/25/2014 04/25/2014 Castro Cartagena MD vitamin d 27732s6e-rfq0-7i94-9k2b-15qji13t2953 04/25/2014 04/25/2014 Castro Cartagena MD vitamin d a3r37s7x-90x7-8v98-3150-239w9t0601c1 04/25/2014 04/25/2014 Castro Cartagena MD vitamin d 8da6eqfq-113t-379w-457r-9f371q73502w 04/25/2014 04/25/2014 Castro Cartagena MD vitamin d n0lh2y11-3ouz-0l3r-ab9u-a44606bx937m 04/25/2014 04/25/2014 Castro Cartagena MD vitamin d 7z440gnj-z5j1-52r1-hs3a-8647292f2j34 04/25/2014 04/25/2014 Castro Cartagena MD vitamin d e03zkl31-t3zy-49k2-710i-5i3f403fsn38 04/25/2014 04/25/2014 Castro Cartagena MD vitamin d 6271vw83-n709-03oj-8b75-6s0p5h43c79c 04/25/2014 04/25/2014 Castro Cartagena MD vitamin d 2j448c8i-2qw4-9t5h-a4mx-2g7p865451yo 04/25/2014 04/25/2014 Castro Cartagena MD vitamin d 3cfr94ty-80n1-5ofq-1j13-4f36el0x4304 04/25/2014 04/25/2014 Castro Cartagena MD vitamin d 3pp92pv4-fus7-538d-8613-7r4r3993g1g9 04/25/2014 04/25/2014 Castro Cartagena MD vitamin d mik7505a-3p6e-1l1c-5807-i02a3ixu9539 04/25/2014 04/25/2014 Castro Cartagena MD vitamin d ho41428z-3n8a-2693-3f65-68d4uw28j98m 04/25/2014 04/25/2014 Castro Cartagena MD Refills- Temazepam tp2581t8-g113-274t-8871-5158n907fvfm 05/01/2014 05/01/2014 Castro Cartagena MD Unknown [id number]-006f-joef-mps7o924e1b2 05/01/2014 05/01/2014 Castro Cartagena MD Refills- Temazepam d8z50889-2377-99rc-5r5n-q2h53nlz7578 05/01/2014 05/01/2014 Castro Cartagena MD Unknown [id number]-t772-45ru-5j43-m560254p50o2 05/01/2014 05/01/2014 Castro Cartagena MD Refills- Temazepam 3w79q891-220i-5ry3-84m2-ds978220ci44 05/01/2014 05/01/2014 Castro Cartagena MD Unknown [id number]-163c-o36v-hiw6b5hddro3 05/01/2014 05/01/2014 Castro Cartagena MD Refills- Temazepam 9j6g5475-75px-0292-ga50-3w8676ub8c62 05/01/2014 05/01/2014 Castro Cartagena MD Unknown ex418qb2-fb44-0gu7-8hab-k88ghnj10c62 05/01/2014 05/01/2014 Castro Cartagena MD Refills- Temazepam 92qt9k58-pfd6-226c-p065-b22th95v15hv 05/01/2014 05/01/2014 Castro Cartagena MD Unknown 3jb2f03s-055u-95h2-fg40-7m70a93hwi04 05/01/2014 05/01/2014 Castro Cartagena MD Refills- Temazepam 80f896ch-3045-3455-m03y-y7gjf27779bj 05/01/2014 05/01/2014 Castro Cartagena MD Unknown [id number]-tmnw-1q7t3n840474 05/01/2014 05/01/2014 Castro Cartagena MD Refills- Temazepam 322nl890-5z76-1483-1i87-89k5f207hhm6 05/01/2014 05/01/2014 Castro Cartagena MD Unknown [id number] 05/01/2014 05/01/2014 Castro Cartagena MD Refills- Temazepam [id number]-3239-1b241n13i0am 05/01/2014 05/01/2014 Castro Cartagena MD Unknown [id number]-[id number]-f38354587w3r 05/01/2014 05/01/2014 Castro Cartagena MD Refills- Temazepam [id number] 05/01/2014 05/01/2014 Castro Cartagena MD Unknown [id number] 05/01/2014 05/01/2014 Castro Cartagena MD Refills- Temazepam 6ygg241p-72xr-157m-207h-199r8w5cku17 05/01/2014 05/01/2014 aCstro Cartagena MD Unknown [id number] 05/01/2014 05/01/2014 Castro Cartagena MD Refills- Temazepam [id number]-5uhn-9a1y-[id number] 05/01/2014 05/01/2014 Castro Cartagena MD Unknown [id number]-50k0-yw61muw8x47b 05/01/2014 05/01/2014 Castro Cartagena MD Refills- Temazepam [id number]-s4pu-8645-xkv0-92jfwe388p9x 05/01/2014 05/01/2014 Castro Cartagena MD Unknown [id number]-6ck3-qo28-472qdpidu7y9 05/01/2014 05/01/2014 Castro Cartagena MD Refills- Temazepam [id number]-zgj02q820c42 05/01/2014 05/01/2014 Castro Cartagena MD Unknown [id number] 05/01/2014 05/01/2014 Castro Cartagena MD Refills- Temazepam [id number]-h6d2-982zd565gvhv 05/01/2014 05/01/2014 Castro Cartagena MD Unknown [id number]-[id number] 05/01/2014 05/01/2014 Castro Cartagena MD Refills- Temazepam [id number]-y625-yu45y4m49203 05/01/2014 05/01/2014 Castro Cartagena MD Unknown [id number] 05/01/2014 05/01/2014 Castro Cartagena MD Refills- Temazepam [id number]-ez92ju81q7h8 05/01/2014 05/01/2014 Castro Cartagena MD Unknown [id number] 05/01/2014 05/01/2014 Csatro Cartagena MD Refills- Temazepam [id number]-[id number]-523s2g90e2zl 05/01/2014 05/01/2014 Castro Cartagena MD Unknown [id number] 05/01/2014 05/01/2014 Castro Cartagena MD Refills- Temazepam [id number] 05/01/2014 05/01/2014 Castro Cartagena MD Unknown [id number] 05/01/2014 05/01/2014 Castro Cartagena MD Refills- Temazepam [id number]-[id number] 05/01/2014 05/01/2014 Castro Cartagena MD Unknown [id number] 05/01/2014 05/01/2014 Castro Cartagena MD Refills- Temazepam [id number] 05/01/2014 05/01/2014 Castro Cartagena MD Unknown [id number]-[id number] 05/01/2014 05/01/2014 Castro Cartagena MD Refills- Temazepam [id number]-ma77-hr3q9c134bx9 05/01/2014 05/01/2014 Castro Cartagena MD Unknown [id number] 05/01/2014 05/01/2014 Castro Cartagena MD Refills- Temazepam [id number]-l3gq46l1e6lt 05/01/2014 05/01/2014 Castro Cartagena MD Unknown [id number] 05/01/2014 05/01/2014 Castro Cartagena MD Refills- Temazepam [id number] 05/01/2014 05/01/2014 Castro Cartagena MD Unknown [id number] 05/01/2014 05/01/2014 Castro Cartagena MD Refills- Temazepam [id number]-p8p30o01c605 05/01/2014 05/01/2014 Castro Cartagena MD Unknown [id number] 05/01/2014 05/01/2014 Castro Cartagena MD Refills- Temazepam [id number]-vkg8-12il5d63dai7 05/01/2014 05/01/2014 Castro Cartagena MD Unknown [id number] 05/01/2014 05/01/2014 Castro Cartagena MD Refills- Temazepam [id number]-n02g72by47p5 05/01/2014 05/01/2014 Castro Cartagena MD Unknown [id number]-g0ex-[id number] 05/01/2014 05/01/2014 Castro Cartagena MD Refills- Temazepam [id number] 05/01/2014 05/01/2014 Castro Cartagena MD Unknown [id number] 05/01/2014 05/01/2014 Castro Cartagena MD Refills- Temazepam [id number]-m3nxd9gugb08 05/01/2014 05/01/2014 Castro Cartagena MD Unknown [id number] 05/01/2014 05/01/2014 Castro Cartagena MD Refills- Temazepam [id number] 05/01/2014 05/01/2014 Castro Cartagena MD Unknown [id number] 05/01/2014 05/01/2014 Castro Cartagena MD Refills- Temazepam [id number] 05/01/2014 05/01/2014 Castro Cartagena MD Unknown [id number] 05/01/2014 05/01/2014 Castro Cartagena MD Refills- Temazepam [id number] 05/01/2014 05/01/2014 Castro Cartagena MD Unknown [id number] 05/01/2014 05/01/2014 Castro Cartagena MD Refills- Temazepam [id number] 05/01/2014 05/01/2014 Castro Cartagena MD Unknown [id number] 05/01/2014 05/01/2014 Castro Cartagena MD Refills- Temazepam [id number] 05/01/2014 05/01/2014 Castro Cartagena MD Unknown [id number] 05/01/2014 05/01/2014 Castro Cartagena MD MRI [id number] 05/11/2014 05/11/2014 Castro Cartagena MD MRI [id number] 05/11/2014 05/11/2014 Castro Cartagena MD MRI [id number] 05/11/2014 05/11/2014 Castro Cartagena MD MRI [id number] 05/11/2014 05/11/2014 Castro Cartagena MD MRI [id number] 05/11/2014 05/11/2014 Castro Cartagena MD MRI [id number] 05/11/2014 05/11/2014 Castro Cartagena MD MRI [id number] 05/11/2014 05/11/2014 Castro Cartagena MD MRI [id number] 05/11/2014 05/11/2014 Castro Cartagena MD MRI [id number] 05/11/2014 05/11/2014 Castro Cartagena MD MRI [id number] 05/11/2014 05/11/2014 Castro Cartagena MD MRI [id number] 05/11/2014 05/11/2014 Castro Cartagena MD MRI [id number] 05/11/2014 05/11/2014 Castro Cartagena MD MRI [id number] 05/11/2014 05/11/2014 Castro Cartagena MD MRI [id number] 05/11/2014 05/11/2014 Castro Cartagena MD MRI [id number] 05/11/2014 05/11/2014 Castro Cartagena MD MRI [id number] 05/11/2014 05/11/2014 Castro Cartagena MD MRI [id number] 05/11/2014 05/11/2014 Castro Cartagena MD MRI [id number] 05/11/2014 05/11/2014 Castro Cartagena MD MRI [id number] 05/11/2014 05/11/2014 Castro Cartagena MD MRI [id number] 05/11/2014 05/11/2014 Castro Cartagena MD MRI [id number] 05/11/2014 05/11/2014 Castro Cartagena MD MRI [id number] 05/11/2014 05/11/2014 Castro Cartagena MD MRI [id number] 05/11/2014 05/11/2014 Castro Cartagena MD MRI [id number] 05/11/2014 05/11/2014 Castro Cartagena MD MRI [id number] 05/11/2014 05/11/2014 Castro Cartagena MD MRI [id number] 05/11/2014 05/11/2014 Castro Cartagena MD MRI [id number] 05/11/2014 05/11/2014 Castro Cartagena MD MRI [id number] 05/11/2014 05/11/2014 Castro Cartagena MD MRI [id number] 05/11/2014 05/11/2014 Castro Cartagena MD MRI [id number] 05/11/2014 05/11/2014 Castro Cartagena MD MRI [id number] 05/11/2014 05/11/2014 Castro Cartagena MD Refund Request [id number] 05/18/2014 05/18/2014 Castro Cartagena MD Refund Request [id number] 05/18/2014 05/18/2014 Castro Cartagena MD Refund Request [id number] 05/18/2014 05/18/2014 Castro Cartagena MD Refund Request [id number] 05/18/2014 05/18/2014 Castro Cartagena MD Refund Request [id number] 05/18/2014 05/18/2014 Castro Cartagena MD Refund Request [id number] 05/18/2014 05/18/2014 Castro Cartagena MD Refund Request [id number] 05/18/2014 05/18/2014 Castro Cartagena MD Refund Request [id number] 05/18/2014 05/18/2014 Castro Cartagena MD Refund Request [id number] 05/18/2014 05/18/2014 Castro Cartagena MD Refund Request [id number] 05/18/2014 05/18/2014 Castro Cartagena MD Refund Request [id number] 05/18/2014 05/18/2014 Castro Cartagena MD Refund Request [id number] 05/18/2014 05/18/2014 Castro Cartagena MD Refund Request [id number] 05/18/2014 05/18/2014 Castro Cartagena MD Refund Request [id number] 05/18/2014 05/18/2014 Castro Cartagena MD Refund Request [id number] 05/18/2014 05/18/2014 Castro Cartagena MD Refund Request [id number] 05/18/2014 05/18/2014 Castro Cartagena MD Refund Request [id number] 05/18/2014 05/18/2014 Castro Cartagena MD Refund Request [id number] 05/18/2014 05/18/2014 Castro Cartagena MD Refund Request [id number] 05/18/2014 05/18/2014 Castro Cartagena MD Refund Request [id number] 05/18/2014 05/18/2014 Castro Cartagena MD Refund Request [id number] 05/18/2014 05/18/2014 Castro Cartagena MD Refund Request [id number] 05/18/2014 05/18/2014 Castro Cartagena MD Refund Request [id number] 05/18/2014 05/18/2014 Castro Cartagena MD Refund Request [id number] 05/18/2014 05/18/2014 Castro Cartagena MD Refund Request [id number] 05/18/2014 05/18/2014 Castro Cartagena MD Refund Request [id number] 05/18/2014 05/18/2014 Castro Cartagena MD Refund Request [id number] 05/18/2014 05/18/2014 Castro Cartagena MD RX Request-- Soma [id number] 06/05/2014 06/05/2014 Castro Cartagena MD RX Request-- Soma [id number] 06/05/2014 06/05/2014 Castro Cartagena MD RX Request-- Soma [id number] 06/05/2014 06/05/2014 Castro Cartagena MD RX Request-- Soma [id number] 06/05/2014 06/05/2014 Castro Cartagena MD RX Request-- Soma [id number] 06/05/2014 06/05/2014 Castro Cartagena MD RX Request-- Soma [id number] 06/05/2014 06/05/2014 Castro Cartagena MD RX Request-- Soma [id number] 06/05/2014 06/05/2014 Castro Cartagena MD RX Request-- Soma [id number] 06/05/2014 06/05/2014 Castro Cartagena MD RX Request-- Soma [id number] 06/05/2014 06/05/2014 Castro Cartagena MD RX Request-- Soma [id number] 06/05/2014 06/05/2014 Castro Cartagena MD RX Request-- [facility] [id number]-mwsg-[id number] 06/05/2014 06/05/2014 Castro Cartagena MD RX Request-- [facility] [id number] 06/05/2014 06/05/2014 Castro Cartagena MD RX Request-- [facility] [id number] 06/05/2014 06/05/2014 Castro Cartagena MD RX Request-- [facility] [id number] 06/05/2014 06/05/2014 Castro Cartagena MD RX Request-- [facility] [id number] 06/05/2014 06/05/2014 Castro Cartagena MD RX Request-- [facility] [id number]-[id number] 06/05/2014 06/05/2014 Castro Cartagena MD RX Request-- [facility] [id number]-b3e1q5l7sk32 06/05/2014 06/05/2014 Castro Cartagena MD RX Request-- [facility] [id number]-ctma-7410-te19-q6h75moeumd3 06/05/2014 06/05/2014 Castro Cartagena MD RX Request-- [facility] [id number]-0589-ydbv-[id number] 06/05/2014 06/05/2014 Castro Cartagena MD RX Request-- [facility] [id number]-35q2-4199-tx7p-0ao8jq6tq11n 06/05/2014 06/05/2014 Castro Cartagena MD RX Request-- [facility] [id number] 06/05/2014 06/05/2014 Castro Cartagena MD RX Request-- [facility] [id number]-6zqt-31u1-67nfuc25qe5p 06/05/2014 06/05/2014 Castro Cartagena MD RX Request-- [facility] [id number]-n806-20w8-3h20-3h1skx9d2x62 06/05/2014 06/05/2014 Castro Cartagena MD RX Request-- [facility] [id number]-[id number] 06/05/2014 06/05/2014 Castro Cartagena MD RX Request-- [facility] [id number]-[id number]-[id number] 06/05/2014 06/05/2014 Castro Cartagena MD RX Request-- [facility] [id number] 06/05/2014 06/05/2014 Castro Cartagena MD RX Request-- [facility] [id number]-qx7y-[id number] 06/05/2014 06/05/2014 Castro Cartagena MD RX Request-- [facility] [id number] 06/05/2014 06/05/2014 Castro Cartagena MD RX Request-- [facility] [id number]-[id number] 06/05/2014 06/05/2014 Castro Cartagena MD RX Request-- [facility] [id number]-[id number] 06/05/2014 06/05/2014 Castro Cartagena MD RX Request-- [facility] [id number]-k1u7-6t9086k40n7g 07/03/2014 07/03/2014 Castro Cartagena MD RX Request-- [facility] [id number]-dzu0-87q3p470y5h1 07/03/2014 07/03/2014 Castro Cartagena MD RX Request-- [facility] [id number] 07/03/2014 07/03/2014 Castro Cartagena MD RX Request-- [facility] [id number] 07/03/2014 07/03/2014 Castro Cartagena MD RX Request-- [facility] [id number]-j53r-rgho094245t1 07/03/2014 07/03/2014 Castro Cartagena MD RX Request-- [facility] [id number] 07/03/2014 07/03/2014 Castro Cartagena MD RX Request-- [facility] [id number]-[id number] 07/03/2014 07/03/2014 Castro Cartagena MD RX Request-- [facility] [id number]-20e5e06v5wvx 07/03/2014 07/03/2014 Castro Cartagena MD RX Request-- [facility] [id number]-p735-235994fgvbtd 07/03/2014 07/03/2014 Castro Cartagena MD RX Request-- [facility] [id number] 07/03/2014 07/03/2014 Castro Cartagena MD RX Request-- [facility] [id number] 07/03/2014 07/03/2014 Castro Cartagena MD RX Request-- [facility] [id number]-wm10-[id number] 07/03/2014 07/03/2014 Castro Cartagena MD RX Request-- [facility] [id number] 07/03/2014 07/03/2014 Castro Cartagena MD RX Request-- [facility] [id number]-33le-k5ck-qz7l64t7j3r0 07/03/2014 07/03/2014 Castro Cartagena MD RX Request-- [facility] [id number]-[id number] 07/03/2014 07/03/2014 Castro Cartagena MD RX Request-- [facility] 96gsxa25-fb5i-5g32-m119-8hfrr679v18f 07/03/2014 07/03/2014 Castro Cartagena MD RX Request-- [facility] [id number]-u5fo-0zz3-q971-4cr2l1yfg572 07/03/2014 07/03/2014 Castro Cartagena MD RX Request-- [facility] [id number]-[id number] 07/03/2014 07/03/2014 Castro Cartagena MD RX Request-- [facility] [id number]-2829-f5mq-7374401x6h6v 07/03/2014 07/03/2014 Castro Cartagena MD RX Request-- [facility] [id number]-7195-[id number] 07/03/2014 07/03/2014 Castro Cartagena MD RX Request-- [facility] [id number]-pu44-26k1-x62j-4054912l49ow 07/03/2014 07/03/2014 Castro Cartagena MD RX Request-- [facility] [id number]-idxq-b8718wxu26i8 07/03/2014 07/03/2014 Castro Cartagena MD RX Request-- [facility] [id number]-[id number]-qce3-06s3864f8z0d 07/03/2014 07/03/2014 Castro Cartagena MD RX Request-- [facility] [id number]-61x0v6q5h1cn 07/03/2014 07/03/2014 Castro Cartagena MD RX Request-- [facility] [id number]-h5fu-507z4c9j121i 07/03/2014 07/03/2014 Castro Cartagena MD RX Request-- [facility] [id number]-s275uj9e573i 07/03/2014 07/03/2014 Castro Cartagena MD RX Request-- [facility] [id number]-[id number] 07/03/2014 07/03/2014 Castro Cartagena MD RX Request-- [facility] [id number] 07/03/2014 07/03/2014 Castro Cartagena MD RX Request-- [facility] [id number]-[id number] 07/03/2014 07/03/2014 Castro Cartagena MD Refill-Temazepam [id number]-37pn-[id number] 08/13/2014 08/13/2014 Castro Cartagena MD Refill-Temazepam [id number]-2353-[id number] 08/13/2014 08/13/2014 Castro Cartagena MD Refill-Temazepam j31p5600-g537-510z-emf2-71h1284c4q4d 08/13/2014 08/13/2014 Castro Cartagena MD Refill-Temazepam 006xvuq1-v4p9-78qi-b8m7-t41m1f677s00 08/13/2014 08/13/2014 Castro Cartagena MD Refill-Temazepam [id number]-q4a3-2pxs-esf5-c655819n13y2 08/13/2014 08/13/2014 Castro Cartagena MD Refill-Temazepam [id number]-p65x-785s80a2753c 08/13/2014 08/13/2014 Castro Cartagena MD Refill-Temazepam 98twunq4-8659-4517-r2g3-1b78041gnz35 08/13/2014 08/13/2014 Castro Cartagena MD Refill-Temazepam e365p3cm-6fm3-20xh-360c-7l3p024j4g32 08/13/2014 08/13/2014 Castro Cartagena MD Refill-Temazepam [id number]-o653-0406-b833-y083g171c628 08/13/2014 08/13/2014 Castro Cartagena MD Refill-Temazepam np332162-qhk6-7xm6-d5k4-6vowpfu2343e 08/13/2014 08/13/2014 Castro Cartagena MD Refill-Temazepam 6yh4wkh5-cs0c-9q50-4s29-j25c64fhjnql 08/13/2014 08/13/2014 Castro Cartagena MD Refill-Temazepam 247m24f9-ih1u-20qi-1fxb-3gl9ocy9i98u 08/13/2014 08/13/2014 Castro Cartagena MD Refill-Temazepam 7851t636-k013-130k-6ja6-8ti170hya036 08/13/2014 08/13/2014 Castro Cartagena MD Refill-Temazepam 5k0s173m-q505-46l2-g901-326cdni49eso 08/13/2014 08/13/2014 Castro Cartagena MD Refill-Temazepam dbw7a62k-096l-7qg3-n591-89ddai3k9082 08/13/2014 08/13/2014 Castro Cartagena MD Refill-Temazepam 5v7u7439-uh5g-4492-60fj-4c7y34h4g934 08/13/2014 08/13/2014 Castro Cartagena MD Refill-Temazepam 71ocebqh-4907-71x540r4-35gk-0pt6023dnrg1 08/13/2014 08/13/2014 Castro Cartagena MD Refill-Temazepam 59x59562-391t-5480-g13c-440h1z63276r 08/13/2014 08/13/2014 Castro Cartagena MD Refill-Temazepam 40efvqxi-l0tp-17yny0of-93ui-445s-778hs79rq77d 08/13/2014 08/13/2014 Castro Cartagena MD Refill-Temazepam 6kf69218-93s9-70oq-lu35-0r78bv19df7f 08/13/2014 08/13/2014 Castro Cartagena MD Refill-Temazepam i7v834j5-55s1-7622-s5e3-6h38003s4w10 08/13/2014 08/13/2014 Castro Cartagena MD Refill-Temazepam 0595xj23-68am-56q2-7w07-p6fpi0l4vx4m 08/13/2014 08/13/2014 Castro Cartagena MD Refill-Temazepam 7tq7na1n-1362-02fv-5naw-55ricuv97ipp 08/13/2014 08/13/2014 Castro Cartagena MD Refill-Temazepam 4132y60b-j8s4-4260-ec7s-t73e6q3h5c34 08/13/2014 08/13/2014 Castro Cartagena MD Refill-Temazepam 0g0px414-9r5h-27yd-6270-z24b2hht3pp1 08/13/2014 08/13/2014 Castro Cartagena MD Refill-Temazepam 3p4qm1d0-eqhv-7730-7882-n2em5v59555d 08/13/2014 08/13/2014 Castro Cartagena MD Refill-Temazepam 9q5dq7m8-r6zm-1242-50p9-as542u27y95q 08/13/2014 08/13/2014 Castro Cartagena MD Refill-Temazepam 4q7kr95k-1327-5139-w305-p1697n4isw3w 08/13/2014 08/13/2014 Castro Cartagena MD Refill-Temazepam 1no49bdk-x530-6iv6-u5f6-c1adjr8sm48n 08/13/2014 08/13/2014 Castro Cartagena MD RX Send Failure 6i51e1n9-7as9-3e72-a6i2-tn7t89033ed5 08/13/2014 08/13/2014 Castro Cartagena MD RX Send Failure 07748esg-js4f-2zi8-q677-flfw9w955560 08/13/2014 08/13/2014 Castro Cartagena MD RX Send Failure 7y954k59-0n1y-2770-w858-py868645h3qc 08/13/2014 08/13/2014 Castro Cartagena MD RX Send Failure 75507b49-8664-05a3-394e-7b030phdf6i8 08/13/2014 08/13/2014 Castro Cartagena MD RX Send Failure g168nx90-1459-5yt9-ou02-13d4d2ai0t97 08/13/2014 08/13/2014 Castro Cartagena MD RX Send Failure 9j407r36-61ng-88k6-4694-6tsbrrd65zs9 08/13/2014 08/13/2014 Castro Cartagena MD RX Send Failure 289v58q5-6xu8-2174-636r-2052cqn20101 08/13/2014 08/13/2014 Castro Cartagena MD RX Send Failure 71w3a5nk-o06p-41p1-6e41-71p8341na623 08/13/2014 08/13/2014 Castro Cartagena MD RX Send Failure ie6r4y5u-9o7f-269c-a10q-35y03nzdr9k9 08/13/2014 08/13/2014 Castro Cartagena MD RX Send Failure 395v4p90-3p39-5630-0a94-3rn750nkqt6e 08/13/2014 08/13/2014 Castro Cartagena MD RX Send Failure s4r30bgv-98ax-761n-03a4-0g4nh11n3o9g 08/13/2014 08/13/2014 Castro Cartagena MD RX Send Failure 23g8yi0f-l68v-82x4-615e-l6353y795870 08/13/2014 08/13/2014 Castro Cartagena MD RX Send Failure 5c4k6j41-6t8f-2o66-q894-87781016m1x0 08/13/2014 08/13/2014 Castro Cartagena MD RX Send Failure 3q475w01-af5t-8bkk-f054-0k077961ujeh 08/13/2014 08/13/2014 Castro Cartagena MD RX Send Failure 0x5i8pm5-1p70-4te1-4254-26kdf3n39xjr 08/13/2014 08/13/2014 Castro Cartagena MD RX Send Failure 7kyr9r10-79l6-815e-3197-1w7ie1736u5d 08/13/2014 08/13/2014 Castro Cartagena MD RX Send Failure 0vnalgzo-4efx-75eg-p6t1-4570sb6kk717 08/13/2014 08/13/2014 Castro Cartagena MD RX Send Failure g8273069-68g6-39ag-5si2-axn5j3k8v30i 08/13/2014 08/13/2014 Castro Cartagena MD RX Send Failure r3m89924-m63s-104v-7ci6-71xidkm47970 08/13/2014 08/13/2014 Castro Cartagena MD RX Send Failure 87gd879f-4p33-3747-8b79-hm7t52c4996k 08/13/2014 08/13/2014 Casrto Cartagena MD RX Send Failure 0800z7d2-29t5-22b0-ou84-vu911neh9753 08/13/2014 08/13/2014 Castro Cartagena MD RX Send Failure 0kj715g0-2j2h-8994-5102-07z0f7qrp585 08/13/2014 08/13/2014 Castro Cartagena MD RX Send Failure 3e8s1mn7-c070-7900-7496-4q0474k17h43 08/13/2014 08/13/2014 Castro Cartagena MD RX Send Failure 088035s7-543i-1f34-3aza-385zc633v3s4 08/13/2014 08/13/2014 Castro Cartagena MD RX Send Failure 51z78i9j-r311-6m80-1984-3w9985z00n2r 08/13/2014 08/13/2014 Castro Cartagena MD RX Send Failure hfqy63p5-v595-946j-8198-37521kz6761j 08/13/2014 08/13/2014 Castro Cartagena MD RX Send Failure 7v88elkj-8924-062l-77tl-p39f1c647g91 08/13/2014 08/13/2014 Castro Cartagena MD RX Send Failure 3lxjb599-7m56-91h9-314z-2ggz7wi73gp9 08/13/2014 08/13/2014 Castro Cartagena MD RX Send Failure w8z59j63-0600-8619-5444-9nm3ue257qvn 08/13/2014 08/13/2014 Castro Cartagena MD Unknown [id number]-m673bzw7jsq8 08/23/2014 08/23/2014 Castro Cartagena MD Unknown [id number] 08/23/2014 08/23/2014 Castro Cartagena MD Unknown [id number] 08/23/2014 08/23/2014 Castro Cartagena MD Unknown [id number]-67vs-25m0p3uh8o76 08/23/2014 08/23/2014 Castro Cartagena MD Unknown [id number]-nm8s1jq149uj 08/23/2014 08/23/2014 Castro Cartagena MD Unknown [id number] 08/23/2014 08/23/2014 Castro Cartagena MD Unknown [id number] 08/23/2014 08/23/2014 Castro Cartagena MD Unknown [id number] 08/23/2014 08/23/2014 Castro Cartagena MD Unknown [id number] 08/23/2014 08/23/2014 Castro Cartagena MD Unknown [id number] 08/23/2014 08/23/2014 Castro Cartagena MD Unknown [id number]-3mr7-9832x1x4p897 08/23/2014 08/23/2014 Castro Cartagena MD Unknown [id number] 08/23/2014 08/23/2014 Castro Cartagena MD Unknown [id number] 08/23/2014 08/23/2014 Castro Cartagena MD Unknown [id number] 08/23/2014 08/23/2014 Castro Cartagena MD Unknown [id number] 08/23/2014 08/23/2014 Castro Cartagena MD Unknown [id number] 08/23/2014 08/23/2014 Castro Cartagena MD Unknown [id number] 08/23/2014 08/23/2014 Castro Cartagena MD Unknown [id number] 08/23/2014 08/23/2014 Castro Cartagena MD Unknown [id number] 08/23/2014 08/23/2014 Castro Cartagena MD Unknown [id number]-30107bquhscx 08/23/2014 08/23/2014 Castro Cartagena MD Unknown [id number] 08/23/2014 08/23/2014 Castro Cartagena MD Unknown [id number] 08/23/2014 08/23/2014 Castro Cartagena MD Unknown [id number] 08/23/2014 08/23/2014 Castro Cartagena MD Unknown [id number] 08/23/2014 08/23/2014 Castro Cartagena MD Unknown [id number] 08/23/2014 08/23/2014 Castro Cartagena MD Unknown [id number] 08/23/2014 08/23/2014 Castro Cartagena MD Unknown [id number] 08/23/2014 08/23/[address] [facility] Outpatient [id number] Samia Vega 08/23/2014 08/24/2014 [facility] Donte Cartagena MD RX Request-- Soma [id number]-y0ju-934m8370lp95 08/24/2014 08/24/2014 Castro Cartagena MD RX Request-- [facility] [id number]-zv7i-[id number] 08/24/2014 08/24/2014 Castro Cartagena MD RX Request-- [facility] [id number] 08/24/2014 08/24/2014 Castro Cartagena MD RX Request-- S[facility] [id number] 08/24/2014 08/24/2014 Castro Cartagena MD RX Request-- [facility] [id number]-efqv-[id number] 08/24/2014 08/24/2014 Castro Cartagena MD RX Request-- [facility] [id number]-h0y2-134h-3z7n-0xpw61m71prr 08/24/2014 08/24/2014 Castro Cartagena MD RX Request-- S[facility] [id number]-[id number] 08/24/2014 08/24/2014 Castro Cartagena MD RX Request-- S[facility] [id number]-2406ar2196m4 08/24/2014 08/24/2014 Castro Cartagena MD RX Request-- [facility] 7kh5qcks-kwoo-27e6-9ni6-l22kgx9z449k 08/24/2014 08/24/2014 Castro Cartagena MD RX Request-- [facility] [id number] 08/24/2014 08/24/2014 Castro Cartagena MD RX Request-- S[facility] [id number] 08/24/2014 08/24/2014 Castro Cartagena MD RX Request-- S[facility] [id number]-[id number] 08/24/2014 08/24/2014 Castro Cartagena MD RX Request-- [facility] [id number] 08/24/2014 08/24/2014 Castro Cartagena MD RX Request-- [facility] [id number]-r7fq-40g8-iygy-75lu35m51c9m 08/24/2014 08/24/2014 Castro Cartagena MD RX Request-- [facility] [id number]-303z-l5b4-i18334g6j7p6 08/24/2014 08/24/2014 Castro Cartagena MD RX Request-- [facility] [id number] 08/24/2014 08/24/2014 Castro Cartagena MD RX Request-- [facility] [id number]-s2mk-16n4kvh2hi4g 08/24/2014 08/24/2014 Castro Cartagena MD RX Request-- [facility] [id number]-h94x-3tlsgg7610w9 08/24/2014 08/24/2014 Castro Cartagena MD RX Request-- Soma [id number]-w35390c7sta6 08/24/2014 08/24/2014 Castro Cartagena MD RX Request-- S[facility] [id number] 08/24/2014 08/24/2014 Castro Cartagena MD RX Request-- S[facility] [id number]-7807-aupc-3kc19c341o89 08/24/2014 08/24/2014 Castro Cartagena MD RX Request-- Soma [id number] 08/24/2014 08/24/2014 Castro Cartagena MD RX Request-- [facility] [id number]-[id number] 08/24/2014 08/24/2014 Castro Cartagena MD RX Request-- S[facility] [id number]-jx5r-nr3313a9806p 08/24/2014 08/24/2014 Castro Cartagena MD RX Request-- Soma [id number]-[id number] 08/24/2014 08/24/2014 Castro Cartagena MD RX Request-- Soma [id number] 08/24/2014 08/24/2014 Castro Cartagena MD RX Request-- Soma [id number]-p4bzq1gq5a9u 08/24/2014 08/24/2014 Castro Cartagena MD RX Request-- S[facility] [id number] 08/24/2014 08/24/2014 Castro Cartagena MD RX Request-- S[facility] [id number]-[id number] 08/24/2014 08/24/2014 Castro Cartagena MD RX Request-- S[facility] [id number] 08/27/2014 08/27/2014 Castro Cartagena MD RX Request-- Soma [id number] 08/27/2014 08/27/2014 Castro Cartagena MD RX Request-- [facility] [id number]-o711z53i7m17 08/27/2014 08/27/2014 Castro Cartagena MD RX Request-- S[facility] [id number] 08/27/2014 08/27/2014 Castro Cartagena MD RX Request-- [facility] [id number] 08/27/2014 08/27/2014 Castro Cartagena MD RX Request-- [facility] [id number] 08/27/2014 08/27/2014 Castro Cartagena MD RX Request-- [facility] [id number] 08/27/2014 08/27/2014 Castro Cartagena MD RX Request-- [facility] [id number] 08/27/2014 08/27/2014 Castro Cartagena MD RX Request-- [facility] [id number] 08/27/2014 08/27/2014 Castro Cartagena MD RX Request-- [facility] [id number] 08/27/2014 08/27/2014 Castro Cartagena MD RX Request-- Soma [id number]-[id number] 08/27/2014 08/27/2014 Castro Cartagena MD RX Request-- [facility] [id number] 08/27/2014 08/27/2014 Castro Cartagena MD RX Request-- S[facility] [id number] 08/27/2014 08/27/2014 Castro Cartagena MD RX Request-- S[facility] [id number] 08/27/2014 08/27/2014 Castro Cartagena MD RX Request-- [facility] [id number] 08/27/2014 08/27/2014 Castro Cartagena MD RX Request-- [facility] [id number] 08/27/2014 08/27/2014 Castro Cartagena MD RX Request-- [facility] [id number] 08/27/2014 08/27/2014 Castro Cartagena MD RX Request-- [facility] [id number] 08/27/2014 08/27/2014 Castro Cartagena MD RX Request-- [facility] [id number] 08/27/2014 08/27/2014 Castro Cartagena MD RX Request-- [facility] [id number] 08/27/2014 08/27/2014 Castro Cartagena MD RX Request-- [facility] [id number] 08/27/2014 08/27/2014 Castro Cartagena MD RX Request-- [facility] [id number] 08/27/2014 08/27/2014 Castro Cartagena MD RX Request-- [facility] [id number] 08/27/2014 08/27/2014 Castro Cartagena MD RX Request-- [facility] [id number] 08/27/2014 08/27/2014 Castro Cartagena MD RX Request-- [facility] [id number] 08/27/2014 08/27/2014 Castro Cartagena MD RX Request-- [facility] [id number] 08/27/2014 08/27/2014 Castro Cartagena MD RX Request-- [facility] [id number] 08/27/2014 08/27/2014 Castro Cartagena MD RX Request-- [facility] [id number] 08/27/2014 08/27/2014 Castro Cartagena MD RX Request-- [facility] [id number] 08/27/2014 08/27/2014 Castro Cartagena MD Unknown [id number] 10/31/2014 10/31/2014 Castro Cartagena MD Unknown [id number] 10/31/2014 10/31/2014 Castro Cartagena MD Unknown [id number] 10/31/2014 10/31/2014 Castro Cartagena MD Unknown [id number] 10/31/2014 10/31/2014 Castro Cartagena MD Unknown [id number] 10/31/2014 10/31/2014 Castro Cartagena MD Unknown [id number] 10/31/2014 10/31/2014 Castro Cartagena MD Unknown [id number] 10/31/2014 10/31/2014 Castro Cartagena MD Unknown [id number] 10/31/2014 10/31/2014 Castro Cartagena MD Unknown [id number] 10/31/2014 10/31/2014 Castro Cartagena MD Unknown [id number] 10/31/2014 10/31/2014 Castro Cartagena MD Unknown [id number] 10/31/2014 10/31/2014 Castro Cartagena MD Unknown [id number] 10/31/2014 10/31/2014 Castro Cartagena MD Unknown [id number] 10/31/2014 10/31/2014 Castro Cartagena MD Unknown [id number] 10/31/2014 10/31/2014 Castro Cartagena MD Unknown [id number] 10/31/2014 10/31/2014 Castro Cartagena MD Unknown [id number] 10/31/2014 10/31/2014 Castro Cartagena MD Unknown [id number] 10/31/2014 10/31/2014 Castro Cartagena MD Unknown [id number] 10/31/2014 10/31/2014 Castro Cartagena MD Unknown [id number] 10/31/2014 10/31/2014 Castro Cartagena MD Unknown [id number] 10/31/2014 10/31/2014 Castro Cartagena MD Unknown [id number] 10/31/2014 10/31/2014 Castro Caratgena MD Unknown [id number] 10/31/2014 10/31/2014 Castro Cartagena MD Unknown [id number] 10/31/2014 10/31/2014 Castro Cartagena MD Unknown [id number] 10/31/2014 10/31/2014 Castro Cartagena MD Unknown [id number] 10/31/2014 10/31/2014 Castro Cartagena MD Unknown [id number] 10/31/2014 10/31/2014 Castro Cartagena MD Unknown [id number] 10/31/2014 10/31/2014 Castro Cartagena MD Follow up [id number] 11/02/2014 11/02/2014 Castro Cartagena MD Follow up [id number] 11/02/2014 11/02/2014 Castro Cartagena MD Follow up [id number] 11/02/2014 11/02/2014 Castro Cartagena MD Follow up [id number] 11/02/2014 11/02/2014 Castro Cartagena MD Follow up [id number] 11/02/2014 11/02/2014 Castro Cartagena MD Follow up [id number] 11/02/2014 11/02/2014 Castro Cartagena MD Follow up [id number] 11/02/2014 11/02/2014 Castro Cartagena MD Follow up [id number] 11/02/2014 11/02/2014 Castro Cartagena MD Follow up [id number] 11/02/2014 11/02/2014 Castro Cartagena MD Follow up [id number] 11/02/2014 11/02/2014 Castro Cartagena MD Follow up [id number] 11/02/2014 11/02/2014 Castro Cartagena MD Follow up [id number] 11/02/2014 11/02/2014 Castro Cartagena MD Follow up [id number] 11/02/2014 11/02/2014 Castro Cartagena MD Follow up [id number] 11/02/2014 11/02/2014 Castro Cartagena MD Follow up [id number] 11/02/2014 11/02/2014 Castro Cartagena MD Follow up [id number] 11/02/2014 11/02/2014 Castro Cartagena MD Follow up [id number] 11/02/2014 11/02/2014 Castro Cartagena MD Follow up [id number] 11/02/2014 11/02/2014 Castro Cartagena MD Follow up [id number] 11/02/2014 11/02/2014 Castro Cartagena MD Follow up [id number] 11/02/2014 11/02/2014 Castro Cartagena MD Follow up [id number] 11/02/2014 11/02/2014 Castro Cartagena MD Follow up [id number] 11/02/2014 11/02/2014 Castro Cartagena MD Follow up [id number] 11/02/2014 11/02/2014 Castro Cartagena MD Follow up [id number] 11/02/2014 11/02/2014 Castro Cartagena MD Follow up [id number] 11/02/2014 11/02/2014 Castro Cartagena MD Follow up [id number] 11/02/2014 11/02/2014 Castro Cartagena MD Follow up [id number] 11/02/2014 11/02/2014 Castro Cartagena MD F/U [id number] 11/26/2014 11/26/2014 Castro Cartagena MD F/U [id number] 11/26/2014 11/26/2014 Castro Cartagena MD F/U [id number] 11/26/2014 11/26/2014 Castro Cartagena MD F/U [id number] 11/26/2014 11/26/2014 Castro Cartagena MD F/U [id number] 11/26/2014 11/26/2014 Castro Cartagena MD F/U [id number] 11/26/2014 11/26/2014 Castro Cartagena MD F/U [id number] 11/26/2014 11/26/2014 Castro Cartagena MD F/U [id number] 11/26/2014 11/26/2014 Castro Cartagena MD F/U [id number] 11/26/2014 11/26/2014 Castro Cartagena MD F/U [id number] 11/26/2014 11/26/2014 Castro Cartagena MD F/U [id number] 11/26/2014 11/26/2014 Castro Cartagena MD F/U [id number]-x15d-88c35dy87cy3 11/26/2014 11/26/2014 Castro Cartagena MD F/U 9ji86g2m-v18u-424q-j74k-834zuu4tu1n1 11/26/2014 11/26/2014 Castro Cartagena MD F/U 8l785k36-m50d-8476-h045-2u4g41qrg2c9 11/26/2014 11/26/2014 Castro Cartagena MD F/U [id number]-z3l13x10502l 11/26/2014 11/26/2014 Castro Cartagena MD F/U [id number]-0777-s0d0-3opv5823inm8 11/26/2014 11/26/2014 Castro Cartagena MD F/U [id number]-[id number] 11/26/2014 11/26/2014 Castro Cartagena MD F/U 8lc99p94-v0s2-6708-xrlb-003qm7677ff4 11/26/2014 11/26/2014 Castro Cartagena MD F/U 5xk5i7us-85f0-3v41-eb6u-p8sb999451xa 11/26/2014 11/26/2014 Castro Cartagena MD F/U [id number] 11/26/2014 11/26/2014 Castro Cartagena MD F/U i10z7t27-7t43-2111-1tyn-iuc10dz253r7 11/26/2014 11/26/2014 Castro Cartagena MD F/U [id number]-6m45-37h64qb7n3le 11/26/2014 11/26/2014 Castro Cartagena MD F/U [id number]-[id number] 11/26/2014 11/26/2014 Castro Cartagena MD F/U 51853nag-ptv6-0g5v-6805-m0g92ct18do2 11/26/2014 11/26/2014 Castro Cartagena MD F/U 19s84r74-jy24-181b-3013-f145k034y0x5 11/26/2014 11/26/2014 Castro Cartagena MD F/U 5g3gw9ff-775c-6473-9801-5y6252840742 11/26/2014 11/26/2014 Castro Cartagena MD Steroids [id number] 12/03/2014 12/03/2014 Castro Cartagena MD Steroids 17m1lk9n-2e88-21n0-57q7-98870dj2d175 12/03/2014 12/03/2014 Castro Cartagena MD Steroids [id number]-t2o6-b042238sd2b0 12/03/2014 12/03/2014 Castro Cartagena MD Steroids k4681ftc-m649-7l63-5333-7e798qhx9o20 12/03/2014 12/03/2014 Csatro Cartagena MD Steroids [id number] 12/03/2014 12/03/2014 Castro Cartagena MD Steroids gl780w6x-q248-4j51-h836-6ht4k75a867q 12/03/2014 12/03/2014 Castro Cartagena MD Steroids [id number]-0478-7qa2-j76k71273627 12/03/2014 12/03/2014 Castro Cartagena MD Steroids 635d9q12-870k-51j9-018p-nz5303gb65f0 12/03/2014 12/03/2014 Castro Cartagena MD Steroids oop5s785-084g-783x-tp85-y7kg265l82w3 12/03/2014 12/03/2014 Castro Cartagena MD Steroids 372x8on7-535s-4586-n705-8x501926q3wy 12/03/2014 12/03/2014 Castro Cartagena MD Steroids 6868r10n-3th2-8z61-gac7-8y0563tf5box 12/03/2014 12/03/2014 Castro Cartagena MD Steroids 6yh4guy4-0838-1r90-m1y8-n791b00cu23v 12/03/2014 12/03/2014 Castro Cartagena MD Steroids vj5wl825-07s2-9753-fyb9-yw4a49794d38 12/03/2014 12/03/2014 Castro Cartagena MD Steroids [id number]-zn63-4531-47iv-5t2i89gns3rw 12/03/2014 12/03/2014 Castro Cartagena MD Steroids 66o02f67-2026-3jwa-m34j-dv907k6w0o9g 12/03/2014 12/03/2014 Castro Cartagena MD Steroids [id number]-pf19-l6x58l55t146 12/03/2014 12/03/2014 Castro Cartagena MD Steroids [id number]-5702-23c9icz86237 12/03/2014 12/03/2014 Castro Cartagena MD Steroids y65e42id-dg0k-1y83-f9u6-1xe571xu795f 12/03/2014 12/03/2014 Castro Cartagena MD Steroids [id number]-480m-2250-f9t09c40164q 12/03/2014 12/03/2014 Castro Cartagena MD Steroids 43xxk7kb-c45v-927k-0rmg-zlx5tf63045y 12/03/2014 12/03/2014 Castro Cartagena MD Steroids k06jel0m-92g6-614b-8p30-12b3d543090l 12/03/2014 12/03/2014 Castro Cartagena MD Steroids [id number]-3793-rs0h-677285423d8t 12/03/2014 12/03/2014 Castro Cartagena MD Steroids [id number]-8h7a-eg3i076e880w 12/03/2014 12/03/2014 Castro Cartagena MD Steroids 1u14w10q-s520-1zml-g9rw-dko50u3931nq 12/03/2014 12/03/2014 Castro Cartagena MD Steroids 2b1ef275-nwo8-4056-aqh4-k8q655l8e21r 12/03/2014 12/03/2014 Castro Cartagena MD Steroids [id number]-7357-s0me-23806sx54821 12/03/2014 12/03/2014 Castro Cartagena MD DEXA 565a378v-5oy9-9704-29uz-e6b6al9f615e 12/14/2014 12/14/2014 Castro Cartagena MD DEXA [id number]-3731-45ly-4k06h988q5a8 12/14/2014 12/14/2014 Castro Cartagena MD DEXA y1h2g0fy-[id number]-938h0375g9r1 12/14/2014 12/14/2014 Castro Cartagena MD DEXA 064206m5-9sm7-0qcp-bw07-3945un1i5v7t 12/14/2014 12/14/2014 Castro Cartagena MD DEXA 420y3r00-331r-8901-i32b-7t47nh499v26 12/14/2014 12/14/2014 Castro Cartagena MD DEXA [id number]-406c-0048-r054-a8b47n48x586 12/14/2014 12/14/2014 Castro Cartagena MD DEXA c98k561t-55fc-3853-q604-56e53if30w80 12/14/2014 12/14/2014 Castro Cartagena MD DEXA 5ywjhe14-24p4-7k7g-7cd6-1705840366ut 12/14/2014 12/14/2014 Castro Cartagena MD DEXA u5hz45tu-x895-5240-n682-yoh7y62g1e22 12/14/2014 12/14/2014 Castro Cartagena MD DEXA 58p6cf07-2918-5e06-55ke-vnvh6pd10ydl 12/14/2014 12/14/2014 Castro Cartagena MD DEXA 35710umo-709a-5643-k7hf-488z2w0wy7v6 12/14/2014 12/14/2014 Castro Cartagena MD DEXA go2mp645-9098-54et-kt4f-t4kir3i7324j 12/14/2014 12/14/2014 Castro Cartagena MD DEXA 87776c4s-5182-7eg8-jx4e-r0do55447jmq 12/14/2014 12/14/2014 Castro Cartagena MD DEXA 73165l18-pltt-8721-y78a-34t5j33g571f 12/14/2014 12/14/2014 Castro Cartagena MD DEXA [id number]-4169-h705-a58mnc03w091 12/14/2014 12/14/2014 Castro Cartagena MD DEXA piiw17f9-u709-03d8-mn60-4u30hh2le53y 12/14/2014 12/14/2014 Castro Cartagena MD DEXA wz2wyn38-ml7a-907q-fu80-w378084ff4n8 12/14/2014 12/14/2014 Castro Cartagena MD DEXA j86er164-84nc-261z-yp2s-705i09i1171z 12/14/2014 12/14/2014 Castro Cartagena MD DEXA 6lrxa24u-5n4m-453o-i43i-7ce6w67ca4cb 12/14/2014 12/14/2014 Castro Cartagena MD DEXA 23y1yp10-10o4-441g-v7o2-59gp988321u7 12/14/2014 12/14/2014 Castro Cartagena MD DEXA 4b0l14by-923s-80b7-6919-f984r79681nb 12/14/2014 12/14/2014 Castro Cartagena MD DEXA g4cr84ib-22p2-3v1z-xh4c-2sp8105dz5mo 12/14/2014 12/14/2014 Castro Cartagena MD DEXA [id number]-z8t2-3g69-i416-1165g75t8t6j 12/14/2014 12/14/2014 Castro Cartagena MD DEXA lu6o19ig-7d96-3080-5659-v168kly27546 12/14/2014 12/14/2014 Castro Cartagena MD DEXA mypc3d6y-v431-56u4-18r3-42v1x42y615g 12/14/2014 12/14/2014 Castro Cartagena MD DEXA y535o5gn-5j2r-5965-rprx-4wh7p0x97y1u 12/14/2014 12/14/2014 Castro Cartagena MD refill request [id number] 12/25/2014 12/25/2014 Castro Cartagena MD refill request [id number] 12/25/2014 12/25/2014 Castro Cartagena MD refill request [id number] 12/25/2014 12/25/2014 Castro Cartagena MD refill request [id number] 12/25/2014 12/25/2014 Castro Cartagena MD refill request [id number] 12/25/2014 12/25/2014 Castro Cartagena MD refill request [id number] 12/25/2014 12/25/2014 Castro Cartagena MD refill request [id number]-bq80-lx48g5s3z7c3 12/25/2014 12/25/2014 Castro Cartagena MD refill request [id number]-x9eg-56l77353w53i 12/25/2014 12/25/2014 Castro Cartagena MD refill request [id number] 12/25/2014 12/25/2014 Castro Cartagena MD refill request [id number]-[id number] 12/25/2014 12/25/2014 Castro Cartagena MD refill request [id number]-xq237r657voe 12/25/2014 12/25/2014 Castro Cartagena MD refill request [id number] 12/25/2014 12/25/2014 Castro Cartagena MD refill request [id number] 12/25/2014 12/25/2014 Castro Cartagena MD refill request [id number] 12/25/2014 12/25/2014 Castro Cartagena MD refill request [id number] 12/25/2014 12/25/2014 Castro Cartagena MD refill request [id number] 12/25/2014 12/25/2014 Castro Cartagena MD refill request [id number] 12/25/2014 12/25/2014 Castro Cartagena MD refill request [id number] 12/25/2014 12/25/2014 Castro Cartagena MD refill request [id number] 12/25/2014 12/25/2014 Castro Cartagena MD refill request [id number] 12/25/2014 12/25/2014 Castro Cartagena MD refill request [id number] 12/25/2014 12/25/2014 Castro Cartagena MD refill request [id number] 12/25/2014 12/25/2014 Castro Cartagena MD refill request [id number] 12/25/2014 12/25/2014 Castro Cartagena MD refill request [id number] 12/25/2014 12/25/2014 Castro Cartagena MD refill request [id number] 12/25/2014 12/25/2014 Castro Cartagena MD refill request [id number] 12/25/2014 12/25/2014 Castro Cartagena MD temazepam refill [id number] 01/16/2015 01/16/2015 Castro Cartagena MD temazepam refill [id number]-51d4-4k2f-gwvh-6f4h18yq69d2 01/16/2015 01/16/2015 Castro Cartagena MD temazepam refill [id number]-g42a-8k9p-705a-4f15j5bqiw31 01/16/2015 01/16/2015 Castro Cartagena MD temazepam refill [id number]-26fg-ay8g-o1h098h027u6 01/16/2015 01/16/2015 Castro Cartagena MD temazepam refill [id number]-[id number]-63226j1t60n9 01/16/2015 01/16/2015 Castro Cartagena MD temazepam refill [id number]-908w-b1w2g11i2xv3 01/16/2015 01/16/2015 Castro Cartagena MD temazepam refill [id number] 01/16/2015 01/16/2015 Castro Cartagena MD temazepam refill [id number] 01/16/2015 01/16/2015 Castro Cartagena MD temazepam refill [id number]-03b3-0t8o0414h76t 01/16/2015 01/16/2015 Castro Cartagena MD temazepam refill w49l1q4q-p1fw-1guv-a3g2-9vz7y2793yqw 01/16/2015 01/16/2015 Castro Cartagena MD temazepam refill [id number]-54s3-up6y-2w4c8yz3sw09 01/16/2015 01/16/2015 Castro Cartagena MD temazepam refill [id number]-1tt0-5922-c4h8-3p56xo8937lm 01/16/2015 01/16/2015 Castro Cartagena MD temazepam refill [id number]-[id number] 01/16/2015 01/16/2015 Castro Cartagena MD temazepam refill [id number]-7b82-83j8498pm2ew 01/16/2015 01/16/2015 Castro Cartagena MD temazepam refill [id number]-[id number] 01/16/2015 01/16/2015 Castro Cartagena MD temazepam refill [id number]-[id number] 01/16/2015 01/16/2015 Castro Cartagena MD temazepam refill [id number]-m285-b1591n5tv98g 01/16/2015 01/16/2015 Castro Cartagena MD temazepam refill [id number]-1071-y513fhs0p85j 01/16/2015 01/16/2015 Castro Cartagena MD temazepam refill [id number]-9580-[id number] 01/16/2015 01/16/2015 Castro Cartagena MD temazepam refill [id number]-r4sk-wjk40p29h811 01/16/2015 01/16/2015 Castro Cartagena MD temazepam refill [id number] 01/16/2015 01/16/2015 Castro Cartagena MD temazepam refill [id number]-068c-p2su-[id number] 01/16/2015 01/16/2015 Castro Cartagena MD temazepam refill [id number]-i0g4-5eqxk1z3-6uui-5555-8jql666xo1n3 01/16/2015 01/16/2015 Castro Cartagena MD temazepam refill [id number] 01/16/2015 01/16/2015 Castro Cartagena MD temazepam refill u6yb2hsv-l34c-6784-40p4-c236vwhfco38 01/16/2015 01/16/2015 Castro Cartagena MD No Show [id number]-q69f62gx4403 01/21/2015 01/21/2015 Castro Cartagena MD No Show [id number]-533560w5i023 01/21/2015 01/21/2015 Castro Cartagena MD No Show jy2uc1y7-y61p-6564-2935-e27803151g4o 01/21/2015 01/21/2015 Castro Cartagena MD No Show [id number] 01/21/2015 01/21/2015 Castro Cartagena MD No Show 4a7u8k1x-2q68-901k-96p9-9y2b495r28v3 01/21/2015 01/21/2015 Castro Cartagena MD No Show 27vbsh92-1k36-1128-z2mv-924j2g1294n5 01/21/2015 01/21/2015 Castro Cartagena MD No Show [id number]-1byb-668yz51u194t 01/21/2015 01/21/2015 Castro Cartagena MD No Show [id number] 01/21/2015 01/21/2015 Castro Cartagena MD No Show [id number] 01/21/2015 01/21/2015 Castro Cartagena MD No Show [id number]-d7b6-20st44o16o43 01/21/2015 01/21/2015 Castro Cartagena MD No Show [id number] 01/21/2015 01/21/2015 Castro Cartagena MD No Show [id number] 01/21/2015 01/21/2015 Castro Cartagena MD No Show [id number]-705r-l2q17675q8y3 01/21/2015 01/21/2015 Castro Cartagena MD No Show [id number] 01/21/2015 01/21/2015 Castro Cartagena MD No Show [id number] 01/21/2015 01/21/2015 Castro Cartagena MD No Show [id number] 01/21/2015 01/21/2015 Castro Cartagena MD No Show [id number]-q895-x9h84nr560a9 01/21/2015 01/21/2015 Castro Cartagena MD No Show [id number]-mr8ycf5znl9y 01/21/2015 01/21/2015 Castro Cartagena MD No Show [id number]-459j-z36u-4tu4w091dc7z 01/21/2015 01/21/2015 Castro Cartagena MD No Show [id number] 01/21/2015 01/21/2015 Castro Cartagena MD No Show [id number]-[id number]-n405-mz5io05dc694 01/21/2015 01/21/2015 Castro Cartagena MD No Show [id number] 01/21/2015 01/21/2015 Castro Cartagena MD No Show [id number]-[id number] 01/21/2015 01/21/2015 Castro Cartagena MD No Show 5a2agtt4-326n-54a8-tu5g-esy2psb1cqt1 01/21/2015 01/21/2015 Castro Cartagena MD No Show [id number]-ml5u-333e-[id number] 01/21/2015 01/21/2015 Castro Cartagena MD RX REFILL [id number] 02/05/2015 02/05/2015 Castro Cartagena MD RX REFILL [id number]-onmx-[id number] 02/05/2015 02/05/2015 Castro Cartagena MD RX REFILL [id number]-3f5p1h73z2qa 02/05/2015 02/05/2015 Castro Cartagena MD RX REFILL [id number] 02/05/2015 02/05/2015 Castro Cartagena MD RX REFILL [id number] 02/05/2015 02/05/2015 Castro Cartagena MD RX REFILL [id number] 02/05/2015 02/05/2015 Castro Cartagena MD RX REFILL [id number] 02/05/2015 02/05/2015 Castro Cartagena MD RX REFILL [id number] 02/05/2015 02/05/2015 Castro Cartagena MD RX REFILL [id number] 02/05/2015 02/05/2015 Castro Cartagena MD RX REFILL [id number] 02/05/2015 02/05/2015 Castro Cartagena MD RX REFILL [id number] 02/05/2015 02/05/2015 Castro Cartagena MD RX REFILL [id number]-97y8-89w1-rf3n-g2f08qi728m0 02/05/2015 02/05/2015 Castro Cartagena MD RX REFILL [id number] 02/05/2015 02/05/2015 Castro Cartagena MD RX REFILL [id number] 02/05/2015 02/05/2015 Castro Cartagena MD RX REFILL [id number] 02/05/2015 02/05/2015 Castro Cartagena MD RX REFILL [id number] 02/05/2015 02/05/2015 Castro Cartagena MD RX REFILL [id number]-h267-oq535u32r75p 02/05/2015 02/05/2015 Castro Cartagena MD RX REFILL [id number]-[id number] 02/05/2015 02/05/2015 Castro Cartagena MD RX REFILL [id number] 02/05/2015 02/05/2015 Castro Cartagena MD RX REFILL [id number] 02/05/2015 02/05/2015 Castro Cartagena MD RX REFILL [id number] 02/05/2015 02/05/2015 Castro Cartagena MD RX REFILL [id number] 02/05/2015 02/05/2015 Castro Cartagena MD RX REFILL [id number] 02/05/2015 02/05/2015 Castro Cartagena MD RX REFILL [id number] 02/05/2015 02/05/2015 Castro Cartagena MD RX REFILL [id number] 02/05/2015 02/05/2015 Castro Cartagena MD Unknown [id number] 02/25/2015 02/25/2015 Castro Cartagena MD Unknown [id number] 02/25/2015 02/25/2015 Castro Cartagena MD Unknown [id number] 02/25/2015 02/25/2015 Castro Cartagena MD Unknown [id number] 02/25/2015 02/25/2015 Castro Cartagena MD Unknown [id number] 02/25/2015 02/25/2015 Castro Cartagena MD Unknown [id number] 02/25/2015 02/25/2015 Castro Cartagena MD Unknown [id number] 02/25/2015 02/25/2015 Castro Cartagena MD Unknown [id number] 02/25/2015 02/25/2015 Castro Cartagena MD Unknown [id number] 02/25/2015 02/25/2015 Castro Cartagena MD Unknown [id number] 02/25/2015 02/25/2015 Castro Cartagena MD Unknown [id number] 02/25/2015 02/25/2015 Castro Cartagena MD Unknown [id number] 02/25/2015 02/25/2015 Castro Cartagena MD Unknown [id number] 02/25/2015 02/25/2015 Castro Cartagena MD Unknown [id number] 02/25/2015 02/25/2015 Castro Cartagena MD Unknown [id number] 02/25/2015 02/25/2015 Castro Cartagena MD Unknown [id number] 02/25/2015 02/25/2015 Castro Cartagena MD Unknown [id number] 02/25/2015 02/25/2015 Castro Cartagena MD Unknown [id number] 02/25/2015 02/25/2015 Castro Cartagena MD Unknown [id number] 02/25/2015 02/25/2015 Castro Cartagena MD Unknown [id number] 02/25/2015 02/25/2015 Castro Cartagena MD Unknown [id number] 02/25/2015 02/25/2015 Castro Cartagena MD Unknown [id number] 02/25/2015 02/25/2015 Castro Cartagena MD Unknown [id number] 02/25/2015 02/25/2015 Castro Cartagena MD Unknown [id number] 02/25/2015 02/25/2015 Castro Cartagena MD Unknown [id number] 02/25/2015 02/25/2015 Castro Cartagena MD refill-temazepam [id number] 03/08/2015 03/08/2015 Castro Cartagena MD refill-temazepam [id number] 03/08/2015 03/08/2015 Castro Cartagena MD refill-temazepam [id number] 03/08/2015 03/08/2015 Castro Cartagena MD refill-temazepam [id number] 03/08/2015 03/08/2015 Castro Cartagena MD refill-temazepam [id number] 03/08/2015 03/08/2015 Castro Cartagena MD refill-temazepam [id number] 03/08/2015 03/08/2015 Castro Cartagena MD refill-temazepam [id number] 03/08/2015 03/08/2015 Castro Cartagena MD refill-temazepam [id number] 03/08/2015 03/08/2015 Castro Cartagena MD refill-temazepam [id number] 03/08/2015 03/08/2015 Castro Cartagena MD refill-temazepam [id number] 03/08/2015 03/08/2015 Castro Cartagena MD refill-temazepam [id number] 03/08/2015 03/08/2015 Castro Cartagena MD refill-temazepam [id number] 03/08/2015 03/08/2015 Castro Cartagena MD refill-temazepam [id number] 03/08/2015 03/08/2015 Castro Cartagena MD refill-temazepam [id number] 03/08/2015 03/08/2015 Castro Cartagena MD refill-temazepam [id number] 03/08/2015 03/08/2015 Castro Cartagena MD refill-temazepam [id number] 03/08/2015 03/08/2015 Castro Cartagena MD refill-temazepam [id number] 03/08/2015 03/08/2015 Castro Cartagena MD refill-temazepam [id number]-[id number] 03/08/2015 03/08/2015 Castro Cartagena MD refill-temazepam [id number] 03/08/2015 03/08/2015 Castro Cartagena MD refill-temazepam [id number] 03/08/2015 03/08/2015 Castro Cartagena MD refill-temazepam [id number]-h9f44556lh5x 03/08/2015 03/08/2015 Castro Cartagena MD refill-temazepam [id number] 03/08/2015 03/08/2015 Castro Cartagena MD refill-temazepam [id number] 03/08/2015 03/08/2015 Castro Cartagena MD refill-temazepam [id number] 03/08/2015 03/08/2015 Castro Cartagena MD refill-temazepam [id number] 03/08/2015 03/08/2015 Castro Cartagena MD MRI [id number] 03/22/2015 03/22/2015 Castro Cartagena MD MRI [id number] 03/22/2015 03/22/2015 Castro Cartagena MD MRI [id number] 03/22/2015 03/22/2015 Castro Cartagena MD MRI [id number] 03/22/2015 03/22/2015 Castro Cartagena MD MRI [id number] 03/22/2015 03/22/2015 Castro Cartagena MD MRI [id number] 03/22/2015 03/22/2015 Castro Cartagena MD MRI [id number] 03/22/2015 03/22/2015 Castro Cartagena MD MRI [id number] 03/22/2015 03/22/2015 Castro Cartagena MD MRI [id number] 03/22/2015 03/22/2015 Castro Cartagena MD MRI [id number] 03/22/2015 03/22/2015 Castro Cartagena MD MRI [id number] 03/22/2015 03/22/2015 Castro Cartagena MD MRI [id number] 03/22/2015 03/22/2015 Castro Cartagena MD MRI [id number] 03/22/2015 03/22/2015 Castro Cartagena MD MRI [id number] 03/22/2015 03/22/2015 Castro Cartagena MD MRI [id number] 03/22/2015 03/22/2015 Castro Cartagena MD MRI [id number] 03/22/2015 03/22/2015 Castro Cartagena MD MRI [id number] 03/22/2015 03/22/2015 Castro Cartagena MD MRI [id number] 03/22/2015 03/22/2015 Castro Cartagena MD MRI [id number] 03/22/2015 03/22/2015 Castro Cartagena MD MRI [id number]-[id number] 03/22/2015 03/22/2015 Castro Cartagena MD MRI [id number] 03/22/2015 03/22/2015 Castro Cartagena MD MRI [id number] 03/22/2015 03/22/2015 Castro Cartagena MD MRI [id number] 03/22/2015 03/22/2015 Castro Cartagena MD MRI [id number] 03/22/2015 03/22/2015 Castro Cartagena MD MRI [id number] 03/22/2015 03/22/2015 Castro Cartagena MD refill- soma [id number] 03/22/2015 03/22/2015 Castro Cartagena MD refill- soma [id number] 03/22/2015 03/22/2015 Castro Cartagena MD refill- soma [id number] 03/22/2015 03/22/2015 Castro Cartagena MD refill- soma [id number] 03/22/2015 03/22/2015 Castro Cartagena MD refill- soma [id number] 03/22/2015 03/22/2015 Castro Cartagena MD refill- soma [id number] 03/22/2015 03/22/2015 Castro Cartagena MD refill- soma [id number] 03/22/2015 03/22/2015 Castro Cartagena MD refill- soma [id number] 03/22/2015 03/22/2015 Castro Cartagena MD refill- soma [id number] 03/22/2015 03/22/2015 Castro Cartagena MD refill- soma [id number] 03/22/2015 03/22/2015 Castro Cartagena MD refill- soma [id number]-5di59z6f5yi9 03/22/2015 03/22/2015 Castro Cartagena MD refill- soma [id number] 03/22/2015 03/22/2015 Castro Cartagena MD refill- soma [id number] 03/22/2015 03/22/2015 Castro Cartagena MD refill- soma [id number] 03/22/2015 03/22/2015 Castro Cartagena MD refill- soma [id number] 03/22/2015 03/22/2015 Castro Cartagena MD refill- soma [id number]-l93p3u41gz99 03/22/2015 03/22/2015 Castro Cartagena MD refill- soma [id number]-[id number] 03/22/2015 03/22/2015 Castro Cartagena MD refill- soma [id number] 03/22/2015 03/22/2015 Castro Cartagena MD refill- soma [id number] 03/22/2015 03/22/2015 Castro Cartagena MD refill- soma [id number] 03/22/2015 03/22/2015 Castro Cartagena MD refill- soma [id number] 03/22/2015 03/22/2015 Castro Cartagena MD refill- soma [id number] 03/22/2015 03/22/2015 Castro Cartagena MD refill- soma [id number]-bq25-x87k8oj37epu 03/22/2015 03/22/2015 Castro Cartagena MD refill- soma [id number] 03/22/2015 03/22/2015 Castro Cartagena MD refill- soma [id number]-b23m-c00r807828j4 03/22/2015 03/22/2015 Castro Cartagena MD Unknown [id number] 04/29/2015 04/29/2015 Castro Cartagena MD Unknown [id number] 04/29/2015 04/29/2015 Castro Cartagena MD Unknown [id number] 04/29/2015 04/29/2015 Castro Cartagena MD Unknown [id number] 04/29/2015 04/29/2015 Castro Cartagena MD Unknown [id number] 04/29/2015 04/29/2015 Castro Cartagena MD Unknown [id number] 04/29/2015 04/29/2015 Castro Cartagena MD Unknown [id number] 04/29/2015 04/29/2015 Castro Cartagena MD Unknown [id number] 04/29/2015 04/29/2015 Castro Cartagena MD Unknown [id number] 04/29/2015 04/29/2015 Castro Cartagena MD Unknown [id number] 04/29/2015 04/29/2015 Castro Cartagena MD Unknown [id number] 04/29/2015 04/29/2015 Castro Cartagena MD Unknown [id number] 04/29/2015 04/29/2015 Castro Cartagena MD Unknown [id number] 04/29/2015 04/29/2015 Castro Cartagena MD Unknown [id number] 04/29/2015 04/29/2015 Castro Cartagena MD Refill- Soma [id number] 04/29/2015 04/29/2015 Castro Cartagena MD Refill- Soma [id number]-b6y7-8o95-52s5-1s7u47ja52s2 04/29/2015 04/29/2015 Castro Cartagena MD Refill- Soma [id number]-f114-85j7w0257zp4 04/29/2015 04/29/2015 Castro Cartagena MD Refill- Soma [id number]-[id number] 04/29/2015 04/29/2015 Castro Cartagena MD Refill- Soma q39t94n7-b40l-2521-i95i-4404856t9rb3 04/29/2015 04/29/2015 Castro Cartagena MD Refill- Soma [id number]-984e-o8q0-j10970o6x20d 04/29/2015 04/29/2015 Castro Cartagena MD Refill- Soma 9xv05h91-9x05-67mg-vk20-003e1l492szn 04/29/2015 04/29/2015 Castro Cartagena MD Refill- Soma 547n1q53-tr2o-4c32-id86-7248317xc203 04/29/2015 04/29/2015 Castro Cartagena MD Refill- Soma [id number]-ysu7-0y84-y96i-e5379e9l7j2p 04/29/2015 04/29/2015 Castro Cartagena MD Refill- Soma 26zj58ld-5y90-5q85-15ba-t0f6o073f74l 04/29/2015 04/29/2015 Castro Cartagena MD Refill- Soma [id number]-ca28-ugw375t95719 04/29/2015 04/29/2015 Castro Cartagena MD Refill- Soma [id number]w1o 04/29/2015 04/29/2015 Castro Cartagena MD Refill- Soma [id number]-s8p2-69ln2e85v6y9 04/29/2015 04/29/2015 Castro Cartagena MD Refill- Soma [id number]-14x1-302b-46nh7p7473i5 04/29/2015 04/29/2015 Castro Cartagena MD Unknown [id number] 04/29/2015 04/29/2015 Castro Cartagena MD Unknown [id number] 04/29/2015 04/29/2015 Castro Cartagena MD Unknown [id number] 04/29/2015 04/29/2015 Castro Cartagena MD Unknown [id number] 04/29/2015 04/29/2015 Castro Cartagena MD Unknown [id number] 04/29/2015 04/29/2015 Castro Cartagena MD Unknown [id number] 04/29/2015 04/29/2015 Castro Cartagena MD Unknown [id number] 04/29/2015 04/29/2015 Castro Cartagena MD Unknown [id number] 04/29/2015 04/29/2015 Castro Cartagena MD Unknown [id number] 04/29/2015 04/29/2015 Castro Cartagena MD Unknown [id number] 04/29/2015 04/29/2015 Castro Cartagena MD Unknown [id number] 04/29/2015 04/29/2015 Castro Cartagena MD Refill- Soma [id number]-3ie3-nq00-26vd41952436 04/29/2015 04/29/2015 Castro Cartagena MD Refill- Soma [id number]-[id number] 04/29/2015 04/29/2015 Castro Cartagena MD Refill- Soma 90ug320i-tx92-5n91-lgru-[id number] 04/29/2015 04/29/2015 Castro Cartagena MD Refill- Soma 8u09n4m9-x723-464d-0v74-n9y3n583cf89 04/29/2015 04/29/2015 Castro Cartagena MD Refill- Soma [id number]-n0z3-421i-ox65-5yxw712t4223 04/29/2015 04/29/2015 Castro Cartagena MD Refill- Soma [id number]-495o-0882-z2dp-vn50689n5x10 04/29/2015 04/29/2015 Castro Cartagena MD Refill- Soma p99ziz4s-374s-890f-563q-5a9wz0567k0l 04/29/2015 04/29/2015 Castro Cartagena MD Refill- Temazepam 6551d2mj-o293-597o-ad00-j5j315249y3t 05/09/2015 05/09/2015 Castro Cartagena MD Refill- Temazepam bo91dcc5-0487-533a-oigf-34d5443smc73 05/09/2015 05/09/2015 Castro Cartagena MD Refill- Temazepam 0to41k07-4aad-055l-3842-3x7744x67vk8 05/09/2015 05/09/2015 Castro Cartagena MD Refill- Temazepam n5839k04-0j3g-1986-67ug-1int26t91j80 05/09/2015 05/09/2015 Castro Cartagena MD Refill- Temazepam 4165936w-i5p7-79mn-h447-mjr7o942ls90 05/09/2015 05/09/2015 Castro Cartagena MD Refill- Temazepam 7jbgl8ll-hc10-1zzl-m28o-9i7228s286z3 05/09/2015 05/09/2015 Castro Cartagena MD Refill- Temazepam 7158h402-6l1b-86g9-9054-xi7g0d06u797 05/09/2015 05/09/2015 Castro Cartagena MD Refill- Temazepam 19y52c44-8j2l-99k8-1p41-kci8gw33n2x1 05/09/2015 05/09/2015 Castro Cartagena MD Refill- Temazepam [id number]-13wp-979m-i93m32md7t02 05/09/2015 05/09/2015 Castro Cartagena MD Refill- Temazepam 6dwd46j4-1o94-4844-e235-48322j842a33 05/09/2015 05/09/2015 Castro Cartagena MD Refill- Temazepam [id number]-g7s1-zy070071j714 05/09/2015 05/09/2015 Castro aCrtagena MD Refill- Temazepam 84b6j725-759v-9q58-z9n4-x6mv01379208 05/09/2015 05/09/2015 Castro Cartagena MD Refill- Temazepam 57zm2010-88i2-0181-de0g-3azk2sahh6wu 05/09/2015 05/09/2015 Castro Cartagena MD Refill- Temazepam [id number]r90 05/09/2015 05/09/2015 Castro Cartagean MD Refill- Temazepam 431hk228-p36f-9730-e293-km8c428818j5 05/09/2015 05/09/2015 Castro Cartagena MD Refill- Temazepam y259tqtu-8t05-2m8v-24w4-zk07y6f0kl9i 05/09/2015 05/09/2015 Castro Cartagena MD Refill- Temazepam 40995h22-m1e4-8d79-gp81-93gb6w0sg66z 05/09/2015 05/09/2015 Castro Cartagena MD Refill- Temazepam 19109x27-500n-11km-024z-gh455vz5kc90 05/09/2015 05/09/2015 Castro Cartagena MD Refill- Temazepam [id number]-4c16-j8a1-0117904o37v6 05/09/2015 05/09/2015 Castro Cartagena MD Refill- Temazepam 64f3a2k0-l4p0-977q-n23d-hh1040y52zvy 05/09/2015 05/09/2015 Castro Cartagena MD Refill- Temazepam [id number]-1274-9718-7i61-73y7j4r9s83d 05/09/2015 05/09/2015 Castro Cartagena MD Refill- Temazepam 52pzs6w1-31as-90eh-v313-h5961211472s 05/09/2015 05/09/2015 Castro Cartagena MD Refill- Temazepam 4q830n57-s152-3973-6m5i-v38y234a0ozb 05/09/2015 05/09/2015 Castro Cartagena MD Refill- Temazepam 87p16801-2y9n-3803-087y-wmm4j879104c 05/09/2015 05/09/2015 Castro Cartagena MD Refill- Soma and Temazepam [id number]-1297-e10n-s94aps6l7554 05/16/2015 05/16/2015 Castro Cartagena MD Refill- Soma and Temazepam kz6o43pt-nhmc-5e26-b484-2c3hvrwxm6f0 05/16/2015 05/16/2015 Castro Cartagena MD Refill- Soma and Temazepam 857j60j9-f893-87pt-0515-59g2ij6kh7x6 05/16/2015 05/16/2015 Castro Cartagena MD Refill- Soma and Temazepam 7nun7883-9dh0-400o-w78f-0pnl25sw0up6 05/16/2015 05/16/2015 Castro Cartagena MD Refill- Soma and Temazepam 2a26p18h-8rpb-5py9-91h3-jl82ml92g99k 05/16/2015 05/16/2015 Castro Cartagena MD Refill- Soma and Temazepam [id number]-0079-72f4-97q2-28712m01j4et 05/16/2015 05/16/2015 Castro Cartagena MD Refill- Soma and Temazepam 449n934m-4xtu-56i4-1119-005971r391r9 05/16/2015 05/16/2015 Castro Cartagena MD Refill- Soma and Temazepam 8772317w-yr05-8191-x76q-0728zwm1338e 05/16/2015 05/16/2015 Castro Cartagena MD Refill- Soma and Temazepam 17q6zm07-4y18-9667-d78j-r2283719cr80 05/16/2015 05/16/2015 Castro Cartagena MD Refill- Soma and Temazepam ofw5b61l-5458-0320-1767-r2nr036o5u97 05/16/2015 05/16/2015 Castro Cartagena MD Refill- Soma and Temazepam 9lf9325i-13hd-814i-e20z-gl86ja2295sx 05/16/2015 05/16/2015 Castro Cartagena MD Refill- Soma and Temazepam ye0680x2-u046-1d6f-4qex-gq10y1q6n196 05/16/2015 05/16/2015 Castro Cartagena MD Refill- Soma and Temazepam c64m0ap5-588b-65m3-s997-9pl186p52d3j 05/16/2015 05/16/2015 Castro Cartagena MD Refill- Soma and Temazepam 1pah000a-d12r-0q4j-o6xf-0b4ce609th54 05/16/2015 05/16/2015 Castro Cartagena MD Refill- Soma and Temazepam [id number]-11244apdgz65 05/16/2015 05/16/2015 Castro Cartagena MD Refill- Soma and Temazepam ixqau864-329i-71n7-8oz7-l1ab26d8w76y 05/16/2015 05/16/2015 Castro Cartagena MD Refill- Soma and Temazepam 01o46y6h-9m35-89jh-7p15-p546t1cm6v5y 05/16/2015 05/16/2015 Castro Cartagena MD Refill- Soma and Temazepam 650072wl-004v-29mz-1599-xd780l5huqne 05/16/2015 05/16/2015 Castro Cartagena MD Refill- Soma and Temazepam 8vz0548z-4659-9n4y-26nk-0a920ct818wr 05/16/2015 05/16/2015 Castro Cartagena MD Refill- Soma and Temazepam 84pn78u9-962s-6043-8822-92643dl9ij5l 05/16/2015 05/16/2015 Castro Cartagena MD Refill- Soma and Temazepam 6i6h1b0z-28v8-1c5h-14y2-1q9wrq4uny43 05/16/2015 05/16/2015 Castro Cartagena MD Refill- Soma and Temazepam 179o4h4y-28v2-9g54-ox4o-65n1f410ajoc 05/16/2015 05/16/2015 Castro Cartagena MD Refill- Soma and Temazepam z351250s-2w4l-2002-w83b-r11672r135wg 05/16/2015 05/16/2015 Castro Cartagena MD Unknown [id number] 05/16/2015 05/16/2015 Castro Cartagena MD Unknown [id number]-[id number] 05/16/2015 05/16/2015 Castro Cartagena MD Unknown [id number] 05/16/2015 05/16/2015 Castro Cartagena MD Unknown [id number]-[id number] 05/16/2015 05/16/2015 Castro Cartagena MD Unknown [id number] 05/16/2015 05/16/2015 Castro Cartagena MD Unknown [id number] 05/16/2015 05/16/2015 Castro Cartagena MD Unknown [id number] 05/16/2015 05/16/2015 Castro Cartagena MD Unknown [id number] 05/16/2015 05/16/2015 Castro Cartagena MD Unknown [id number]-vl8x-9320qylbrxox 05/16/2015 05/16/2015 Castro Cartagena MD Unknown [id number]-2nx5-402t9v19kbuy 05/16/2015 05/16/2015 Castro Cartagena MD Unknown [id number] 05/16/2015 05/16/2015 Castro Cartagena MD Unknown [id number] 05/16/2015 05/16/2015 Castro Cartagena MD Unknown [id number] 05/16/2015 05/16/2015 Castro Cartagena MD Unknown [id number] 05/16/2015 05/16/2015 Castro Cartagena MD Unknown [id number]-u130-xo91922m9n25 05/16/2015 05/16/2015 Castro Cartagena MD Unknown [id number]-e12y-30nv-925i-16dyroyrnk7h 05/16/2015 05/16/2015 Castro Cartagena MD Unknown [id number]-geaa-34880se9fjj9 05/16/2015 05/16/2015 Castro Cartagena MD Unknown [id number]-[id number] 05/16/2015 05/16/2015 Castro Cartagena MD Unknown [id number]-0wx7-6s7f-u2d7-98p5s758fqv2 05/16/2015 05/16/2015 Castro Cartagena MD Unknown [id number] 05/16/2015 05/16/2015 Castro Cartagena MD Unknown [id number] 05/16/2015 05/16/2015 Castro Cartagena MD Unknown [id number] 05/16/2015 05/16/2015 Castro Cartagena MD SOMA SIGNATURE 6uvj99x6-pjb1-6z1k-510h-5kj0uq2n00k6 05/21/2015 05/21/2015 Castro Cartagena MD SOMA SIGNATURE 6x4p6caw-3470-4301-3082-vmh148k04h43 05/21/2015 05/21/2015 Castro Cartagena MD SOMA SIGNATURE 64343l60-415k-698l-128e-ic7d595v1p42 05/21/2015 05/21/2015 Castro Cartagena MD SOMA SIGNATURE 9s6ci37c-f9w4-7n22-79do-851420os7w1j 05/21/2015 05/21/2015 Castro Cartagena MD SOMA SIGNATURE 0028pklv-ke46-04g4kt86-96q5-q4n5-47l789l208w9 05/21/2015 05/21/2015 Castro Cartagena MD SOMA SIGNATURE [id number]-6550-oej2-72v27we03h6g 05/21/2015 05/21/2015 Castro Cartagena MD SOMA SIGNATURE 05q14757-o4ll-3r85-t4h4-31gme5ep7k0c 05/21/2015 05/21/2015 Castro Cartagena MD SOMA SIGNATURE [id number]-[id number] 05/21/2015 05/21/2015 Castro Cartagena MD SOMA SIGNATURE 7166xv6e-6jj3-9m55-3095-cn09960456p7 05/21/2015 05/21/2015 Castro Cartagena MD SOMA SIGNATURE [id number]-u46f-y585fj52h570 05/21/2015 05/21/2015 Castro Cartagena MD SOMA SIGNATURE [id number]-x345-39d3-3711-166re958860l 05/21/2015 05/21/2015 Castro Cartagena MD SOMA SIGNATURE f1r1s6ev-2mka-4852-hg58-29335cr63678 05/21/2015 05/21/2015 Castro Cartagena MD SOMA SIGNATURE [id number]-25l5-r86h-wqb4f46l2697 05/21/2015 05/21/2015 Castro Cartagena MD SOMA SIGNATURE 9g777jvo-4101-91c2-t4w9-02975agptzx1 05/21/2015 05/21/2015 Castro Cartagena MD SOMA SIGNATURE [id number]-[id number] 05/21/2015 05/21/2015 Castro Cartagena MD SOMA SIGNATURE 2vi40x65-1p7u-28rc-94dz-1k0653y5s6eq 05/21/2015 05/21/2015 Castro Cartagena MD SOMA SIGNATURE 4x41u516-1n48-9834-39m0-7r88n663233w 05/21/2015 05/21/2015 Castro Cartagena MD SOMA SIGNATURE 002arp63-h5uj-8y90-00cr-0w02q126s017 05/21/2015 05/21/2015 Castro Cartagena MD SOMA SIGNATURE 673t57k7-439i-4gh6-2tw2-7t30567bb54q 05/21/2015 05/21/2015 Castro Cartagena MD SOMA SIGNATURE h9jigt45-d4gr-8gd0-dgqq-6958l4qwdv2k 05/21/2015 05/21/2015 Castro Cartagena MD Unknown [id number]-a82b-[id number] 05/27/2015 05/27/2015 Castro Cartagena MD Unknown [id number] 05/27/2015 05/27/2015 Castro Cartagena MD Unknown [id number] 05/27/2015 05/27/2015 Castro Cartagena MD Unknown [id number] 05/27/2015 05/27/2015 Castro Cartagena MD Unknown [id number]-w64a4594ydr5 05/27/2015 05/27/2015 Castro Cartagena MD Unknown [id number]-je1r31j71i6k 05/27/2015 05/27/2015 Castro Cartagena MD Unknown [id number]-h72o-437t-[id number] 05/27/2015 05/27/2015 Castro Cartagena MD Unknown [id number]-9t61ssv061tx 05/27/2015 05/27/2015 Castro Cartagena MD Unknown [id number]-23u6-t766-[id number] 05/27/2015 05/27/2015 Castro Cartagena MD Unknown [id number]-[id number] 05/27/2015 05/27/2015 Castro Cartagena MD Unknown [id number] 05/27/2015 05/27/2015 Castro Cartagena MD Unknown [id number]-trm0-[id number] 05/27/2015 05/27/2015 Castro Cartagena MD Unknown [id number]-asz70q688a92 05/27/2015 05/27/2015 Castro Cartagena MD Unknown [id number]-5w7c0j62p11c 05/27/2015 05/27/2015 Castro Cartagena MD Unknown [id number] 05/27/2015 05/27/2015 Castro Cartagena MD Unknown [id number]-cxni08uv73k0 05/27/2015 05/27/2015 Castro Cartagena MD Unknown [id number] 05/27/2015 05/27/2015 Castro Cartagena MD Unknown [id number] 05/27/2015 05/27/2015 Castro Cartagena MD Unknown [id number] 05/27/2015 05/27/2015 Castro Cartagena MD RX REFILL [id number] 07/19/2015 07/19/2015 Castro Cartagena MD RX REFILL [id number]-96i46453z4v7 07/19/2015 07/19/2015 Castro Cartagena MD RX REFILL [id number]-vhx9383cm712 07/19/2015 07/19/2015 Castro Cartagena MD RX REFILL [id number]-5cig-au753d1ykdj2 07/19/2015 07/19/2015 Castro Cartagena MD RX REFILL [id number]-b3lo-84kk0181h111 07/19/2015 07/19/2015 Castro Cartagena MD RX REFILL [id number]-r228-m56657h0u62x 07/19/2015 07/19/2015 Castro Cartagena MD RX REFILL [id number] 07/19/2015 07/19/2015 Castro Cartagena MD RX REFILL [id number]-561vbqc8b98k 07/19/2015 07/19/2015 Castro Cartagena MD RX REFILL [id number] 07/19/2015 07/19/2015 Castro Cartagena MD RX REFILL [id number]-l907xhm86c3j 07/19/2015 07/19/2015 Castro Cartagena MD RX REFILL 91f91s1h-[id number]-g91a78531e6h 07/19/2015 07/19/2015 Castro Cartagena MD RX REFILL [id number]-7x131lby69n4 07/19/2015 07/19/2015 Castro Cartagena MD RX REFILL [id number]-5c7e-v28z75k4d056 07/19/2015 07/19/2015 Castro Cartagena MD RX REFILL [id number] 07/19/2015 07/19/2015 Castro Cartagena MD RX REFILL [id number]-qx502c39z772 07/19/2015 07/19/2015 Castro Cartagena MD RX REFILL [id number]-[id number] 07/19/2015 07/19/2015 Castro Cartagena MD RX REFILL [id number] 07/19/2015 07/19/2015 Castro Cartagena MD RX REFILL [id number] 07/19/2015 07/19/2015 Castro Cartagena MD No Show [id number]-[id number] 08/02/2015 08/02/2015 Castro Cartagena MD No Show [id number] 08/02/2015 08/02/2015 Castro Cartagena MD No Show 3nezzp00-55z0-6145-3m75-av1sa83x8xs5 08/02/2015 08/02/2015 Castro Cartagena MD No Show laa27qm2-x6u8-0qu8-5ug8-21s5d3i9n12m 08/02/2015 08/02/2015 Castro Cartagena MD No Show [id number]-680n-s4d2-3x3ze63863d5 08/02/2015 08/02/2015 Castro Cartagena MD No Show [id number]-[id number]-0v20-61175zx45ca3 08/02/2015 08/02/2015 Castro Cartagena MD No Show [id number]-v2l0-77e355304a6m 08/02/2015 08/02/2015 Castro Cartagena MD No Show [id number]-m5di0j1a3670 08/02/2015 08/02/2015 Castro Cartagena MD No Show [id number]-dx3b-548r-426l-b125d4bk92j3 08/02/2015 08/02/2015 Castro Cartagena MD No Show [id number]-67j8-19xwt5ly4287 08/02/2015 08/02/2015 Castro Cartagena MD No Show [id number] 08/02/2015 08/02/2015 Castro Cartagena MD No Show [id number] 08/02/2015 08/02/2015 Castro Cartagena MD No Show [id number] 08/02/2015 08/02/2015 Castro Cartagena MD No Show [id number] 08/02/2015 08/02/2015 Castro Cartagena MD No Show [id number] 08/02/2015 08/02/2015 Castro Cartagena MD No Show [id number] 08/02/2015 08/02/2015 Castro Cartagena MD No Show [id number] 08/02/2015 08/02/2015 Castro Cartagena MD Visit [id number] 08/09/2015 08/09/2015 Castro Cartagena MD Visit [id number] 08/09/2015 08/09/2015 Castro Cartagena MD Visit [id number] 08/09/2015 08/09/2015 Castro Cartagena MD Visit [id number] 08/09/2015 08/09/2015 Castro Cartagena MD Visit [id number] 08/09/2015 08/09/2015 Castro Cartagena MD Visit [id number] 08/09/2015 08/09/2015 Castro Cartagena MD Visit [id number] 08/09/2015 08/09/2015 Castro Cartagena MD Visit [id number] 08/09/2015 08/09/2015 Castro Cartagena MD Visit [id number] 08/09/2015 08/09/2015 Castro Cartagena MD Visit [id number] 08/09/2015 08/09/2015 Castro Cartagena MD Visit [id number] 08/09/2015 08/09/2015 Castro Cartagena MD Visit [id number] 08/09/2015 08/09/2015 Castro Cartagena MD Visit [id number] 08/09/2015 08/09/2015 Castro Cartagena MD Visit [id number] 08/09/2015 08/09/2015 Castro Cartagena MD Refill- [facility] [id number] 08/26/2015 08/26/2015 Castro Cartagena MD Refill- Temazepam [id number] 08/26/2015 08/26/2015 Castro Cartagena MD Refill- Temazepam [id number] 08/26/2015 08/26/2015 Castro Cartagena MD Refill- Temazepam [id number] 08/26/2015 08/26/2015 Castro Cartagena MD Refill- Temazepam [id number] 08/26/2015 08/26/2015 Castro Cartagena MD Refill- Temazepam [id number] 08/26/2015 08/26/2015 Castro Cartagena MD Refill- Temazepam [id number] 08/26/2015 08/26/2015 Castro Cartagena MD Refill- Temazepam [id number] 08/26/2015 08/26/2015 Castro Cartagena MD Refill- Temazepam [id number] 08/26/2015 08/26/2015 Castro Cartagena MD Refill- Temazepam [id number] 08/26/2015 08/26/2015 Castro Cartagena MD Refill- Temazepam [id number] 08/26/2015 08/26/2015 Castro Cartagena MD Refill- Temazepam [id number] 08/26/2015 08/26/2015 Castro Cartagena MD Refill- Temazepam [id number] 08/26/2015 08/26/2015 Castro Cartagena MD Refill- Temazepam [id number] 08/26/2015 08/26/2015 Castro Cartagena MD Refill- Temazepam [id number] 08/26/2015 08/26/2015 Castro Cartagena MD Refill- Temazepam [id number] 08/26/2015 08/26/2015 Castro Cartagena MD Bumetanide [id number] 08/26/2015 08/26/2015 Castro Cartagena MD Bumetanide [id number] 08/26/2015 08/26/2015 Castro Cartagena MD Bumetanide [id number] 08/26/2015 08/26/2015 Castro Cartagena MD Bumetanide [id number] 08/26/2015 08/26/2015 Castro Cartagena MD Bumetanide [id number] 08/26/2015 08/26/2015 Castro Cartagena MD Bumetanide [id number] 08/26/2015 08/26/2015 Castro Cartagena MD Bumetanide [id number] 08/26/2015 08/26/2015 Castro Cartagena MD Bumetanide [id number]-[id number] 08/26/2015 08/26/2015 Castro Cartagena MD Bumetanide [id number] 08/26/2015 08/26/2015 Castro Cartagena MD Bumetanide [id number] 08/26/2015 08/26/2015 Castro Cartagena MD Bumetanide [id number] 08/26/2015 08/26/2015 Castro Cartagena MD Bumetanide [id number] 08/26/2015 08/26/2015 Castro Cartagena MD Bumetanide [id number] 08/26/2015 08/26/2015 Castro Cartagena MD Bumetanide [id number] 08/26/2015 08/26/2015 Castro Cartagena MD Bumetanide [id number] 08/26/2015 08/26/2015 Castro Cartagena MD labs [id number] 09/30/2015 09/30/2015 Castro Cartagena MD labs [id number] 09/30/2015 09/30/2015 Castro Cartagena MD labs [id number] 09/30/2015 09/30/2015 Castro Cartagena MD labs [id number] 09/30/2015 09/30/2015 Castro Cartagena MD labs [id number] 09/30/2015 09/30/2015 Castro Cartagena MD labs [id number] 09/30/2015 09/30/2015 Castro Cartagena MD labs [id number] 09/30/2015 09/30/2015 Castro Cartagena MD labs [id number] 09/30/2015 09/30/2015 Castro Cartagena MD labs [id number] 09/30/2015 09/30/2015 Castro Cartagena MD labs [id number] 09/30/2015 09/30/2015 Castro Cartagena MD labs [id number] 09/30/2015 09/30/2015 Castro Cartagena MD labs [id number] 09/30/2015 09/30/2015 Castro Cartagena MD labs [id number] 09/30/2015 09/30/2015 Castro Cartagena MD Prolia [id number] 10/08/2015 10/08/2015 MD Evie Gonzalesia [id number]-gple-[id number]-0572-[id number] 10/08/2015 10/08/2015 MD Sherice Gonzales [id number] 10/08/2015 10/08/2015 Castro Cartagena MD Prolia [id number] 10/08/2015 10/08/2015 MD Evie Gonzalesia [id number]-[id number] 10/08/2015 10/08/2015 MD Evie Gonzalesia [id number] 10/08/2015 10/08/2015 Castro Cartagena MD Prolia [id number]-[id number] 10/08/2015 10/08/2015 MD Evie Gonzalesia [id number] 10/08/2015 10/08/2015 MD Evie Gonzalesia [id number] 10/08/2015 10/08/2015 MD Sherice Gonzales [id number] 10/08/2015 10/08/2015 Castro Cartagena MD Prolia [id number] 10/08/2015 10/08/2015 Castro Cartagena MD Prolia [id number] 10/08/2015 10/08/2015 Castro Cartagena MD Infusion/OV/Prolia [id number] 10/17/2015 10/17/2015 Castro Cartagena MD Infusion/OV/Prolia [id number] 10/17/2015 10/17/2015 Castro Cartagena MD Infusion/OV/Prolia [id number]-lscd-[id number] 10/17/2015 10/17/2015 Castro Cartagena MD Infusion/OV/Prolia [id number] 10/17/2015 10/17/2015 Castro Cartagena MD Infusion/OV/Prolia [id number] 10/17/2015 10/17/2015 Castro Cartagena MD Infusion/OV/Prolia [id number] 10/17/2015 10/17/2015 Castro Cartagena MD Infusion/OV/Prolia [id number] 10/17/2015 10/17/2015 Castro Cartagena MD Infusion/OV/Prolia [id number] 10/17/2015 10/17/2015 Castro Cartagena MD Infusion/OV/Prolia [id number] 10/17/2015 10/17/2015 Castro Cartagena MD Infusion/OV/Prolia [id number] 10/17/2015 10/17/2015 Castro Cartagena MD Infusion/OV/Prolia [id number] 10/17/2015 10/17/2015 Castro Cartagena MD Refill- Carisprodol [id number] 12/23/2015 12/23/2015 Castro Cartagena MD Refill- Carisprodol [id number] 12/23/2015 12/23/2015 Castro Cartagena MD Refill- Carisprodol [id number] 12/23/2015 12/23/2015 Castro Cartagena MD Refill- Carisprodol [id number] 12/23/2015 12/23/2015 Castro Cartagena MD Refill- Carisprodol [id number] 12/23/2015 12/23/2015 Castro Cartagena MD Refill- Carisprodol [id number] 12/23/2015 12/23/2015 Castro Cartagena MD Refill- Carisprodol [id number] 12/23/2015 12/23/2015 Castro Cartagena MD Refill- Carisprodol [id number] 12/23/2015 12/23/2015 Castro Cartagena MD Refill- Carisprodol [id number] 12/23/2015 12/23/2015 Castro Cartagena MD Refill- Carisprodol [id number] 12/23/2015 12/23/2015 Castro Cartagena MD MED REFILL [id number] 12/24/2015 12/24/2015 Castro Cartagena MD MED REFILL [id number] 12/24/2015 12/24/2015 Castro Cartagena MD MED REFILL [id number] 12/24/2015 12/24/2015 Castro Cartagena MD MED REFILL [id number] 12/24/2015 12/24/2015 Castro Cartagena MD MED REFILL [id number] 12/24/2015 12/24/2015 Castro Cartagena MD soma rx [id number] 12/24/2015 12/24/2015 Castro Cartagena MD soma rx [id number] 12/24/2015 12/24/2015 Castro Cartagena MD soma rx [id number] 12/24/2015 12/24/2015 Castro Cartagena MD soma rx [id number] 12/24/2015 12/24/2015 Castro Cartagena MD soma rx [id number] 12/24/2015 12/24/2015 Castro Cartagena MD soma rx [id number] 12/24/2015 12/24/2015 Castro Cartagena MD soma rx [id number] 12/24/2015 12/24/2015 Castro Cartagena MD soma rx [id number] 12/24/2015 12/24/2015 Castro Cartagena MD soma rx [id number] 12/24/2015 12/24/2015 Castro Cartagena MD Prolia [id number] 12/25/2015 12/25/2015 Castro Cartagena MD Prolia [id number] 12/25/2015 12/25/2015 Castro Cartagena MD Prolia [id number] 12/25/2015 12/25/2015 Castro Cartagena MD Prolia [id number] 12/25/2015 12/25/2015 MD Sherice Gonzales [id number] 12/25/2015 12/25/2015 MD Sherice Gonzales [id number] 12/25/2015 12/25/2015 MD Sherice Gonzales [id number] 12/25/2015 12/25/2015 MD Sherice Gonzales [id number] 12/25/2015 12/25/2015 Castro Cartagena MD Temazepam [id number] 12/25/2015 12/25/2015 Castro Cartagena MD Temazepam [id number] 12/25/2015 12/25/2015 Castro Cartagena MD Temazepam [id number] 12/25/2015 12/25/2015 Castro Cartagena MD Temazepam [id number] 12/25/2015 12/25/2015 Castro Cartagena MD Temazepam [id number] 12/25/2015 12/25/2015 Castro Cartagena MD Temazepam [id number] 12/25/2015 12/25/2015 Castro Cartagena MD Verbal rx [id number] 2015 2015 Castro Cartagena MD Verbal rx [id number] 2015 2015 Castro Cartagena MD Verbal rx [id number] 2015 2015 Castro Cartagena MD Verbal rx [id number] 2015 2015 Castro Cartagena MD Verbal rx [id number] 2015 2015 Castro Cartagena MD Verbal rx [id number] 2015 2015 Castro Cartagena MD Verbal rx [id number] 2015 2015 Castro Cartagena MD MED REFILL [id number] 02/24/2016 02/24/2016 Castro Cartagena MD MED REFILL [id number] 02/24/2016 02/24/2016 Castro Cartagena MD MED REFILL [id number] 02/24/2016 02/24/2016 Castro Cartagena MD MED REFILL [id number] 02/24/2016 02/24/2016 Castro Cartagena MD Refill- Carisprodol [id number] 04/06/2016 04/06/2016 Castro Cartagena MD Refill- Carisprodol [id number] 04/06/2016 04/06/2016 Castro Cartagena MD Refill- Carisprodol [id number] 04/06/2016 04/06/2016 Castro Cartagena MD Refill- Soma [id number] 04/22/2016 04/22/2016 Castro Cartagena MD Refill- Soma [id number] 04/22/2016 04/22/2016 Castro Cartagena MD Refills [id number] 07/20/2016 07/20/2016 Castro Cartagena [facility] [place] [facility] [id number] Jairo Webb 08/17/2017 08/18/2017 [facility] [place] OD [id number] RTN TIBURCIO Elder [facility] [place] Procedures Procedure Code Date Perfomer Comments Source LASIK [id number] [facility] [place] Tubal ligation [id number] [facility] [place] Tubal ligation [id number] [place]
--- OUTSIDE RECORDS SUMMARY | 2018-03-22 12:04 | XMS REPORT ---
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
--- OUTSIDE RECORDS SUMMARY | 2018-03-22 12:04 | XMS REPORT ---
Author Donte Blackmon Organization [employer] Address Unknown Phone Unavailable Care Team Providers Care Career Resource Specialist Name Role Phone Donte Cartagena CP Unavailable Allergies No Known Allergies Problems Problem Type Condition Code Onset Dates Condition Status Problem Mouth ulcers K12.1 Active Problem Osteoporosis M81.0 Active Problem TIA (transient ischemic attack) G45.9 Active Problem Other forms of systemic lupus erythematosus M32.8 Active Problem Vitamin D deficiency E55.9 Active Problem Low back pain M54.5 Active Problem Other manager intermediate (current) drug therapy Z79.899 Active Medications No Known Medications Results No Known Results Summary Purpose [employer] Submission
--- OUTSIDE RECORDS SUMMARY | 2018-03-22 12:04 | XMS REPORT ---
Author Donte Blackmon [facility] [employer] Address Unknown Phone Unavailable Care Team Providers Care Picture Engraver Name Role Phone Donte Cartagena CP Unavailable Allergies No Known Allergies Problems Problem Type Condition Code Onset Dates Condition Status Assessment Osteoporosis M81.0 Active Problem Vitamin D deficiency E55.9 Active Assessment Other forms of systemic lupus erythematosus M32.8 Active Assessment Bronchitis J40 Active Problem TIA (transient ischemic attack) G45.9 Active Problem Mouth ulcers K12.1 Active Problem Bronchitis J40 Active Problem Other intermediate accountant (current) drug therapy Z79.899 Active Problem Other forms of systemic lupus erythematosus M32.8 Active Problem Osteoporosis M81.0 Active Problem Low back pain M54.5 Active Medications Medication Code System Code Instructions Start Date End Date Status Dosage Prolia [facility] 72648318615 60 MG/ML Subcutaneous [id number] December 09, 2017 Active as directed Methotrexate ND 44537489473 2.5 MG Orally once a week Active 4 tablets Temazepam ND 32344492027 30 MG QD Jun 07, 2012 Active two Carisoprodol ND 00150299493 350 MG 4QD Jun 07, 2010 Active one tablet Abilify ND 22446092325 20 MG QD Jun 07, 2010 Active one tablet Folic Acid [facility] 15482088389 1 MG Orally Once a day December 22, 2017 Active 1 tablet Zithromax Z-Mynor ND 21377093333 250 MG Orally as directed Feb 17, 2018 Feb 27, 2018 Active 2 tablets on the first day, then 1 tablet daily for 4 [place] [address]-25 40 MG QD Jun 07, 2007 Active one tablet Prochlorperazine Maleate ND 86365648588 5 MG PRN Jun 07, 2007 Active one tablet Ergocalciferol NDC 0 87148 U QWK September 08, 2016 Active one capsule Venlafaxine HCl [facility] [address]-94 150 MG QD Apr 28, 2010 Active one capsule PredniSONE ND 36715214308 10 MG Orally q am with food Jan 18, 2018 May 18, 2018 Active 1 tablet Results No Known Results Summary Purpose [employer] Submission
--- OUTSIDE RECORDS SUMMARY | 2018-03-22 12:04 | XMS REPORT ---
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
--- OUTSIDE RECORDS SUMMARY | 2018-03-22 12:04 | XMS REPORT ---
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
--- OUTSIDE RECORDS SUMMARY | 2018-03-22 12:04 | XMS REPORT ---
Author Donte Blackmon Organization [employer] Address Unknown Phone Unavailable Care Team Providers Care Aix Administrator Name Role Phone Donte Cartagena CP Unavailable Allergies No Known Allergies Problems Problem Type Condition Code Onset Dates Condition Status Problem Mouth ulcers K12.1 Active Problem Osteoporosis M81.0 Active Problem TIA (transient ischemic attack) G45.9 Active Problem Other forms of systemic lupus erythematosus M32.8 Active Problem Vitamin D deficiency E55.9 Active Problem Low back pain M54.5 Active Problem Other ad terminal makeup operator (current) drug therapy Z79.899 Active Medications No Known Medications Results No Known Results Summary Purpose eClinicalWorks Submission
--- OUTSIDE RECORDS SUMMARY | 2018-03-22 12:05 | XMS REPORT ---
Author [facility] Address Unknown Phone Unavailable Care Team Providers Care Data Typist Name Role Phone Phil DAVISON Unavailable Unavailable HUAN MITCHELL Unavailable Unavailable Payers Payer Name Policy Type Policy Number Effective Date Expiration Date Problems This patient has no known problems. Allergies, Adverse Reactions, Alerts Allergy Name Allergy Type Status Severity Reaction(s) Onset Date Inactive Date Treating Clinician Comments No Known Allergies DA Active U 2018-01-01 00:00:00 Medications This patient has no known medications. Results Test Description Test Time Test Comments Text Results Atomic Results Result Comments CHEST SINGLE (PORTABLE) 2018-03-14 12:35:00 [place] [address] Patient Name: MARZENA TANG MR #: [id number] : 1955 Age/Sex: 62/F Req #: [id number] Adm Physician: Ordered by: NIECY SANHCEZ RESEARCH EPIDEMIOLOGIST Report #: [id number] Location: ER Room/Bed: Procedure: [id number] DX/CHEST SINGLE (PORTABLE) Exam Date: 03/14/18 Exam Time: 1221 REPORT STATUS: Signed Examination: Single AP view of the chest. COMPARISON: None. INDICATION: Trouble breathing DISCUSSION: Examination is limited by portable technique and patient body habitus. The lungs are well-inflated. No focal airspace consolidation, pleural effusion, or pneumothorax. Hazy increased opacity over the mid and lower lung zones is related to superimposition of overlying soft tissues. There is mild prominence of the pulmonary interstitium. Atherosclerotic calcification of the thoracic aorta. Otherwise normal heart size for technique. No overt pulmonary edema. No acute osseous abnormality. IMPRESSION: Prominence of the pulmonary interstitium may reflect mild edema or viral lower respiratory infection. No consolidative pneumonia. Signed by: Dr. Briana Winters M.D. on 03/14/2018 12:38 PM Dictated By: BRIANA WINTERS MD 1238 Transcribed By: ADRIÁN on 03/14/18 1238 COPY TO: NIECY SANCHEZ NP CHEST SINGLE (PORTABLE) 2017-12-21 14:17:00 [place] [address] Patient Name: MARZENA TANG MR #: [id number] : 1955 Age/Sex: 61/F Req #: [id number] Adm Physician: HUAN MITCHELL MD Ordered by: ESTEFANI ROBLEDO MD Report #: [id number] Location: [facility] Room/Bed: [place] [address] Procedure: [id number] DX/CHEST SINGLE (PORTABLE) Exam Date: 12/21/17 Exam Time: 1330 REPORT STATUS: Signed PROCEDURE: A single AP view of the chest. COMPARISON: [facility], DX, CHEST SINGLE (PORTABLE), 12/08/2012, 5:04. INDICATIONS: CHEST PAIN, CHF FINDINGS: Lines/tubes: None. Lungs: The lungs are well inflated and grossly clear. There is no evidence of pneumonia or pulmonary edema. Pleura: There is no pleural effusion or pneumothorax. Heart and mediastinum: Cardiac silhouette is unremarkable. Bones: No acute bony abnormality. IMPRESSION: 1. No acute cardiopulmonary disease. Kiya Santana M.D. Dictated by: Kiya Santana M.D. on 12/21/2017 at 14:17 Electronically approved by: Kiya Santana M.D. on 12/21/2017 at 14:17 Dictated By: KIYA SANTANA MD 1417 Transcribed By: CURTIS on 12/21/17 1417 COPY TO: ESTEFANI ROBLEDO MD
== END 2018-03-14 15:14 | disposition home or self-care (01) ==
LOC: ER 11:48
DX: R06.00 Dyspnea, unspecified (principal); J15.9 Unspecified bacterial pneumonia; J44.1 Chronic obstructive pulmonary disease with (acute) exacerbation; I50.9 Heart failure, unspecified; N18.9 Chronic kidney disease, unspecified
CPT/HCPCS: 36415; 71045; 80053; 82550; 82553; 83880; 84484; 85025; 85610; 85730; 93005; 94640; 99284; J0696